=== PATIENT | female | born 1950 | race Caucasian/White ===

== ENCOUNTER 2018-05-26 16:47 | Observation (INO) | payer MEDICARE, SELFPAY ==
[2018-05-26] VITALS (35 sets, daily range): BP systolic 107–172; BP diastolic 60–94; PULSE 57–70; RESP 12–20; TEMP 36.7–37.1; O2SAT 90–98
--- NOTE | 2018-05-26 17:04 | ED.GENADUL_ITS ---
Discharge Plan Disposition Patient Disposition: [facility] INPATIENT Condition: Stable Discharge Details Chief Complaint: Chest Pain Clinical Impression: Unstable angina, Chest pain, Abnormal EKG Reason For Visit: UNSTABLE ANGINA, CHEST PAIN,ABNORMAL EKG Admit Date/Time: 05/26/18 20:03 Admit Provider: Junaid Dunbar Attending Provider: Junaid Dunbar Primary Care Provider: Judith Jerome ED Provider: More Hill Discharge Data Discharge Date/Time-TO BE ENTERED AT DEPARTURE: 05/26/18 19:55 Discharge Physician: More Hill Medical Decision Making MDM Narrative Medical decision making narrative: 67-year-old female with a history of hypertension who presents with intermittent chest pain and shortness of breath that occurs with exertion over the past 3 weeks. States her symptoms have occurred with walking up hills over the past 3 weeks, worse today causing her to stop and rest which resolved her symptoms. She called her PCP and was advised to come to the emergency department. She states her chest pain that currently 2/3 and associated with some shortness of breath and nausea. Her blood pressure 169/94. She took her regular blood pressure medication today. Remainder of vitals within normal limits. 1656 -- EKG notes rate of 70, sinus, left anterior fascicular block, and T-wave inversion in V2 through V5. No acute ST elevation or depression. There is no old EKG to compare. Patient states she has never had a previous EKG as far she can remember. States she has never had a stress test. Differential diagnosis includes angina, stable versus unstable, as symptoms did improve with rest but is still present at rest at this time. Although symptoms have been present for 3 weeks, they are worse today and with her concerning story, age and history, HEART score 6, pt would be appropriate for admission for observation and serial troponins and likely will need echocardiogram and stress test. Patient states she may be resistant to admission but would like to discuss again after workup complete. 1800 --labs and imaging reviewed. Troponin negative and no other acute findings. Chest x-ray negative. Patient had complete relief of pain with nitro ?1. BP 126/82. She is agreeable to admission. 1914 --d/w hospitalist - accepts pt for admission. Pt had return of pain and had relief again with 2nd nitro. HPI - General Adult General Mode of arrival: ambulatory . Date/Time Provider Initiated Documentation: 05/26/18 16:52 . Limitations to Documentation: no limitations . Information obtained by: patient . HPI Narrative: Patient is a 67-year-old female with a history of hypertension and high cholesterol who presents with intermittent chest pain and shortness of breath that occurs with walking for the past 3 weeks. Patient states that symptoms became worse today while walking to the point that she had to stop and rest which resolved her symptoms. Patient admits to feeling a soreness in her chest with radiation to her bilateral upper arms causing aching pain. She also admits to shortness of breath and nausea but denies any vomiting or dizziness. She states the pain in her chest is currently 2-3/10. She denies any previous history of stress test. Patient states she called her primary care doctor today regarding her symptoms and was advised to come to the emergency department for evaluation. She denies recent surgery, recent travel, leg pain or swelling. Related Data Home Medications Medication Instructions Recorded Confirmed aspirin [Ecotrin] 81 mg PO DAILY tab-cap 03/16/13 05/26/18 Allergies Allergy/AdvReac Type Severity Reaction Status Date / Time Sulfa (Sulfonamide Allergy Severe Unverified 05/26/18 17:03 Antibiotics) ciprofloxacin [From Cipro] Allergy Mild Unverified 05/26/18 17:03 Penicillins Allergy Mild Unverified 05/26/18 17:03 sulfamethoxazole Allergy Unverified 05/26/18 17:03 [From Septra] trimethoprim [From Septra] Allergy Unverified 05/26/18 17:03 hydrochlorothiazide AdvReac Intermediate TINGLING, Unverified 05/26/18 17:03 SWOLLEN LIPS General Stated Complaint: Chest Pain CARON: 3 Review of Systems Review of Systems All systems reviewed & are unremarkable except as noted in HPI and below Constitutional Denies chills, Denies excessive sweating, Denies fatigue, Denies fever(s), Denies weakness and Denies weight loss Eyes Patient Reports system reviewed and no additional complaints, except as docu and Denies blurry vision ENT Denies vertigo, Denies dizziness, Denies otalgia, Denies nasal congestion, Denies sore throat and Denies throat swelling Cardiovascular Reports chest pain, Denies syncope, Denies rapid heart rate, Denies claudication , Denies leg edema and Reports dyspnea Respiratory Denies cough, Denies pain on inspiration, Reports dyspnea and Denies wheezing Gastrointestinal Denies abdominal pain, Denies diarrhea, Reports nausea and Denies vomiting Genitourinary Denies hematuria, Denies dysuria and Denies flank pain Musculoskeletal Denies back pain and Denies joint swelling Integumentary/Breasts Denies lesions and Denies rash Neurologic Denies behavioral changes, Denies confusion, Denies vertigo, Denies dizziness, Denies syncope and Denies weakness Psychiatric Denies behavioral changes, Denies confusion and Denies depression Endocrine Denies excessive sweating and Denies fatigue Hematologic/Lymphatic Denies easy bruising and Denies lymphadenopathy Allergic/Immunologic Denies throat swelling and Denies wheezing PFSH Family History Mother Essential hypertension Neoplasm Father Diabetes Essential hypertension Heart disease Hyperlipidemia Neoplasm Renal failure Brother No problems noted. Grandfather Aneurysm Grandfather No problems noted. Grandmother No problems noted. Grandmother No problems noted. Brother No problems noted. Daughter No problems noted. Brother No problems noted. Medical History Chronic iritis Hyperlipidemia Hypertension Nephrolithiasis Osteoporosis Paresthesias Social History Smoking/Tobacco Use Status: Never alcohol intake: current alcohol intake frequency: 0-2 drinks per day Alcohol type: wine substance use type: does not use Surgical History Biopsy of breast (~1988) Exam Const General: cooperative and healthy appearing Orientation: alert and awake [facility] Head: normal to inspection Ears: hearing grossly normal bilaterally, external ears normal and TM's normal bilaterally General nose exam: external nose normal Face and sinus: normal facial exam Eyes General: appearance normal, both eyes and all related structures Eyelids: eyelids normal Pupils: PERRL EOM: EOM intact bilaterally Neck Neck: normal visual inspection Chest Chest: normal inspection of the chest Resp Effort & Inspection: normal respiratory effort and able to speak in complete sentences Auscultation: clear to auscultation bilaterally Cardio Rate: regular rate Rhythm: regular rhythm GI Inspection: normal to inspection Palpation: soft, not firm, no guarding, no hepatosplenomegaly, no masses and nontender Auscultation: normal bowel sounds Back/Spine/Pelvis Back: no CVA tenderness Skin General skin exam: no rashes or lesions noted Neuro General: alert and awake Cognition: normal cognition Speech: speech normal Gait: normal gait Motor: muscle tone normal throughout Sensory Exam: no sensory deficits noted Extrem General: normal to inspection, full ROM, normal capillary refill, no calf tenderness bilaterally and no edema Psych Appearance: grossly normal Mental Status: mental status grossly normal Speech and Movement: speech and movement normal Affect: normal affect Thought Process: normal Course Vital Signs Temperature 98.8 F 05/26/18 16:58 Pulse 68 05/26/18 16:58 Respiratory Rate 16 05/26/18 16:58 Blood Pressure 169/94 H 05/26/18 16:58 Pulse Oximetry 98 05/26/18 16:58 Temperature 98.8 F 05/26/18 16:58 Pulse 68 05/26/18 16:58 Respiratory Rate 16 05/26/18 16:58 Blood Pressure 169/94 H 05/26/18 16:58 Pulse Oximetry 98 05/26/18 16:58
[2018-05-26 17:11] LABS: Abs Immature Grans 0.03 k/cumm (0.0-0.09); Absolute Basophil Count 0.04 k/cumm (0.0-0.2); Absolute Eosinophil Count 0.19 k/cumm (0.0-0.7); Absolute Lymphocyte Count 2.88 k/cumm (1.2-3.4); Absolute Monocyte Count 0.57 k/cumm (0.11-0.7); Absolute Neutrophil Count 3.43 k/cumm (1.2-6.7); Basophils % 0.6; Eosinophils % 2.7; HCT 42.4 % (36.0-46.0); HGB 14.6 g/dL (12.0-15.5); Immature Grans % 0.4; Lymphocytes % 40.3; Mean Corp. HGB Concentration 34.4 g/dL (32.0-36.0); Mean Corpuscular Hemoglobin 33.6 pg (27.0-33.0); Mean Corpuscular Volume 97.5 fL (80-95); Mean Platelet Volume 10.8 fL (8.0-11.0); Platelet Count 213 x1000/uL (130-400); RBC 4.35 m/cumm (4.00-5.20); RBC Distribution Width 13.3 % (11.7-14.6); White Blood Cell Count 7.14 k/cumm (4.4-10.8)
[2018-05-26 17:30] LABS: ALT 26 U/L (12-78); AST 18 U/L (15-37); Albumin 3.8 g/dL (3.4-5.0); Alkaline Phosphatase 94 U/L (46-116); Anion Gap 7.1 mmol/L (3-11); BUN 20 mg/dL (7-18); Bilirubin, Total 0.2 mg/dL (0.2-1.0); CO2 25.9 mmol/L (21.0-32.0); CREATININE 0.77 mg/dL (0.55-1.02); Calcium 8.7 mg/dL (8.5-10.1); Chloride 104 mmol/L (98-107); Glucose 114 mg/dL (70-100); Magnesium 2.2 mg/dL (1.8-2.4); Sodium 137 mmol/L (136-145); Total Protein 7.5 g/dL (6.4-8.2)
[2018-05-26 17:31] LABS: Troponin I < 0.02 ng/mL (0.00-0.06)
--- NOTE | 2018-05-26 17:35 | DI.RAD_ITS ---
SYMPTOM/DIAGNOSIS: CHEST PAIN PA AND LATERAL CHEST: Comparison is made with 01/16/16. The heart size is normal. The aorta is mildly tortuous. The lungs are well inflated and clear. No thoracic compression fractures are seen. There is no evidence of pneumothorax. IMPRESSION: Negative chest xray.
[2018-05-26] MEDS: Aspirin 325 MG TAB PO (17:47)
--- NOTE | 2018-05-26 17:53 | DI.VRAD_ITS ---
EXAM: XR Chest, 2 Views CLINICAL HISTORY: 67 years old, female; Pain; Chest pain; Type not specified; Patient HX: Chest pain, R/O acute disease. TECHNIQUE: Frontal and lateral views of the chest. COMPARISON: CR - CHEST 2 VIEWS PA,LAT 01/16/2016 2:53 PM FINDINGS: Lungs: Unremarkable. No consolidation. Pleural space: Unremarkable. No pneumothorax. Heart: Unremarkable. No cardiomegaly. Mediastinum: Unremarkable. Bones/joints: Unremarkable. IMPRESSION: No acute cardiopulmonary pathology. Dictated and Authenticated by: Wolfgang Martinez MD. Ordering:BEBO OSORIO MD
[2018-05-26 21:38] LABS: Troponin I 0.02 ng/mL (0.00-0.06)
[2018-05-26] MEDS: Enoxaparin 40 MG/0.4 ML SYR SC (22:40)
--- NOTE | 2018-05-26 22:43 | W.PM.HP.N ---
Date of service: 05/26/18 Time of Service: 22:45 Assessment and Plan (1) Exertional angina: Start date: 05/26/18 Current visit: Yes Status: Acute Admit to medical/surgical floor on telemetry monitoring overnight while monitoring for further anginal symptoms. Schedule stress treadmill MPI study and echocardiogram for tomorrow morning along with cardiology consultation. Continue her atenolol and aspirin although her atenolol will probably need to be held for the stress test in the morning. Continue her lisinopril for her essential hypertension. Continue to monitor her troponin levels overnight. If further anginal symptoms, then check serial EKGs and further troponin levels and treat accordingly with systemic heparin and systemic nitroglycerin. I would have a low threshold for transferring her to the intensive care unit if she has further chest pain or if she show signs of an acute myocardial infarction I would transfer her to a tertiary care facility where she can go for emergent cardiac catheterization. I will check a lipid profile in the morning and begin statin therapy tonight. (2) Essential hypertension: Current visit: Yes Status: Acute Continue lisinopril and atenolol. Monitor her blood pressure modify her medications as needed. Check echocardiogram in the morning to evaluate LV function and look for signs of hypertensive heart disease. 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 About 3 weeks ago she noticed exertional dyspnea and chest tightness while running up chickens at home. This was associated with heaviness in her arms and a sensation that her heart was beating unusually hard. Symptoms quickly resolved with rest. Then today while at school she was taking her students for a walk up a hill when she developed substernal chest pressure and aching in her arms along with exertional dyspnea. She called her primary care provider's office at [facility] and was told to present to the emergency department. Patient tried to argue that she could go another day after school but was told that she should go immediately. She was evaluated in the emergency room by Dr. Hill who performed routine labs and chest x-ray and EKG. Her EKG demonstrated normal sinus rhythm at a rate of 70 bpm with a left anterior fascicular block and diffuse precordial T-wave inversion with no ST changes. Her first 2 troponins have been negative. Her chest pain was relieved with with 2 sublingual nitroglycerin tablets. Prior to treatment with the nitroglycerin her blood pressure was elevated at 167/94 and as high as 172/87 before declining to 128/81. Patient's coronary risk factors include a strong family history in her father who started having heart disease in his early 60s and eventually from chronic kidney disease as result of long-standing hypertension in his 70s. Patient has 2 living brothers who are healthy. Patient does not smoke and has never smoked. She denies any diabetes mellitus. Although it is listed on her chart that she has hyperlipidemia she is not aware of this and does not take any cholesterol-lowering medications. 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 Review of Systems Constitutional Reports as per HPI Eyes Patient Reports photophobia Comments: Decreased vision in her left eye secondary to chronic uveitis ENT Reports system reviewed and no additional complaints, except as docu Cardiovascular Reports as per HPI Respiratory Reports as per HPI Gastrointestinal Reports system reviewed and no additional complaints, except as docu Genitourinary Reports system reviewed and no additional complaints, except as docu Musculoskeletal Reports system reviewed and no additional complaints, except as docu Neurologic Reports system reviewed and no additional complaints, except as docu Psychiatric Reports system reviewed and no additional complaints, except as docu Endocrine Reports system reviewed and no additional complaints, except as docu Hematologic/Lymphatic Reports system reviewed and no additional complaints, except as docu Allergic/Immunologic Reports system reviewed and no additional complaints, except as docu PFSH Family History Mother Essential hypertension Neoplasm Father Diabetes Essential hypertension Heart disease Hyperlipidemia Neoplasm Renal failure Brother No problems noted. Grandfather Aneurysm Grandfather No problems noted. Grandmother No problems noted. Grandmother No problems noted. Brother No problems noted. Daughter No problems noted. Brother No problems noted. Medical History Chronic iritis Hyperlipidemia Hypertension Nephrolithiasis Osteoporosis Paresthesias Social History Smoking/Tobacco Use Status: Never alcohol intake: current alcohol intake frequency: 0-2 drinks per day Alcohol type: wine substance use type: does not use Surgical History Biopsy of breast (~1988) Meds Home Medications Medication Instructions Recorded Confirmed Type aspirin [Ecotrin] 81 mg PO DAILY tab-cap 03/16/13 05/26/18 History fluticasone 50 mcg NS BID #1 bottle 02/18/17 05/26/18 Clinic acyclovir 400 mg PO BID #180 tab-cap 01/13/18 05/26/18 Clinic atenolol 50 mg PO DAILY #90 tab-cap 03/22/18 05/26/18 Clinic lisinopril 5 mg PO DAILY #90 tab-cap 03/22/18 05/26/18 Clinic Allergies Allergy/AdvReac Type Severity Reaction Status Date / Time Sulfa (Sulfonamide Allergy Severe Unverified 05/26/18 17:03 Antibiotics) ciprofloxacin [From Cipro] Allergy Mild Unverified 05/26/18 17:03 Penicillins Allergy Mild Unverified 05/26/18 17:03 sulfamethoxazole Allergy Unverified 05/26/18 17:03 [From Septra] trimethoprim [From Septra] Allergy Unverified 05/26/18 17:03 hydrochlorothiazide AdvReac Intermediate TINGLING, Unverified 05/26/18 17:03 SWOLLEN LIPS Exam Const General: cooperative, healthy appearing, comfortable, no acute distress, well developed and well groomed Nutritional Appearance: average body habitus and well nourished Orientation: alert, awake and oriented x3 HENMT Head: normal to inspection Ears: hearing grossly normal bilaterally Eyes Cornea: corneas abnormal Pupils: anisocoria, dilated on the left, fixed on the left and not reactive on the left EOM: EOM intact bilaterally Neck Neck: normal visual inspection, full ROM, no lymphadenopathy and supple Carotids: normal carotid upstroke Lymphatic: no lymphadenopathy noted Chest Chest: normal inspection of the chest Resp Effort & Inspection: normal respiratory effort and able to speak in complete sentences Auscultation: clear to auscultation bilaterally Cardio Jugular venous pressure: no JVD Palpation: normal PMI Rate: regular rate Rhythm: regular rhythm Heart Sounds: S1 normal and S2 normal Pulses: brachial pulses present, radial pulses present, femoral pulses present, popliteal pulses present, posterior tibial pulses present, dorsalis pedis pulses present and normal peripheral pulses GI Inspection: normal to inspection Palpation: soft and no hepatosplenomegaly Percussion: normal to percussion Auscultation: normal bowel sounds Neuro General: alert, awake, oriented x3, moves all extremities and normal light touch, pain and propioception Cranial Nerves: EOM intact bilaterally, no nystagmus, facial strength normal, tongue midline, hearing normal, able to rotate head bilaterally and able to elevate shoulders bilaterally Cognition: normal cognition Speech: speech normal Motor: muscle tone normal throughout and strength 5/5 throughout Sensory Exam: no sensory deficits noted and normal double simultaneous stimulation Extrem General: normal to inspection, full ROM, normal capillary refill, no joint enlargement, no clubbing, cyanosis or edema, no pedal edema and no calf tenderness Psych Appearance: grossly normal Mental Status: mental status grossly normal Speech and Movement: speech and movement normal Mood: congruent mood Affect: normal affect Attitude: cooperative Thought Process: normal Thought Content: normal Insight: insight good Judgment: judgment good Results Labs : 05/26/18 17:00 05/26/18 17:00 Abnormal lab results 05/26/18 05/26/18 Range/Units 17:00 17:00 MCV 97.5 H (80-95) fL MCH 33.6 H (27.0-33.0) pg BUN 20 H (7-18) mg/dL Glucose 114 H (70-100) mg/dL Diabetes panel 05/26/18 Range/Units 17:00 Sodium 137 (136-145) mmol/L Potassium 4.0 (3.5-5.1) mmol/L Chloride 104 (98-107) mmol/L Carbon Dioxide 25.9 (21.0-32.0) mmol/L BUN 20 H (7-18) mg/dL Creatinine 0.77 (0.55-1.02) mg/dL Glucose 114 H (70-100) mg/dL Calcium 8.7 (8.5-10.1) mg/dL AST 18 (15-37) U/L ALT 26 (12-78) U/L Alkaline Phosphatase 94 (46-116) U/L Total Protein 7.5 (6.4-8.2) g/dL Albumin 3.8 (3.4-5.0) g/dL Calcium panel 05/26/18 Range/Units 17:00 Calcium 8.7 (8.5-10.1) mg/dL Albumin 3.8 (3.4-5.0) g/dL Pituitary panel 05/26/18 Range/Units 17:00 Sodium 137 (136-145) mmol/L Potassium 4.0 (3.5-5.1) mmol/L Chloride 104 (98-107) mmol/L Carbon Dioxide 25.9 (21.0-32.0) mmol/L BUN 20 H (7-18) mg/dL Creatinine 0.77 (0.55-1.02) mg/dL Glucose 114 H (70-100) mg/dL Calcium 8.7 (8.5-10.1) mg/dL Adrenal panel 05/26/18 Range/Units 17:00 Sodium 137 (136-145) mmol/L Potassium 4.0 (3.5-5.1) mmol/L Chloride 104 (98-107) mmol/L Carbon Dioxide 25.9 (21.0-32.0) mmol/L BUN 20 H (7-18) mg/dL Creatinine 0.77 (0.55-1.02) mg/dL Glucose 114 H (70-100) mg/dL Calcium 8.7 (8.5-10.1) mg/dL Total Bilirubin 0.2 (0.2-1.0) mg/dL AST 18 (15-37) U/L ALT 26 (12-78) U/L Alkaline Phosphatase 94 (46-116) U/L Total Protein 7.5 (6.4-8.2) g/dL Albumin 3.8 (3.4-5.0) g/dL Laboratory Tests 05/26/18 05/26/18 05/26/18 17:00 17:00 21:15 WBC 7.14 RBC 4.35 Hgb 14.6 Hct 42.4 MCV 97.5 H MCH 33.6 H MCHC 34.4 RDW 13.3 Plt Count 213 MPV 10.8 Immature Gran % 0.4 Neutrophils % 48.0 Lymphocytes % 40.3 Monocytes % 8.0 Eosinophils % 2.7 Basophils % 0.6 Absolute Neutrophils 3.43 Absolute Lymphocytes 2.88 Absolute Monocytes 0.57 Absolute Eosinophils 0.19 Absolute Basophils 0.04 Sodium 137 Potassium 4.0 Chloride 104 Carbon Dioxide 25.9 Anion Gap 7.1 BUN 20 H Creatinine 0.77 Estimated GFR/1.73 m2 >= 60.00 Glucose 114 H Calcium 8.7 Magnesium 2.2 Total Bilirubin 0.2 AST 18 ALT 26 Alkaline Phosphatase 94 Troponin I < 0.02 0.02 Total Protein 7.5 Albumin 3.8
[2018-05-26] MEDS: Atorvastatin 40 MG TAB PO (23:52)
[2018-05-27] VITALS (8 sets, daily range): BP systolic 120–145; BP diastolic 76–84; PULSE 56–67; RESP 16–21; TEMP 36.2–36.9; O2SAT 93–96
[2018-05-27 00:52] LABS: Troponin I < 0.02 ng/mL (0.00-0.06)
[2018-05-27 07:37] LABS: Cholesterol 186 mg/dL (50-200); HDL Cholesterol 33 mg/dL (40-60); LDL CHOLESTEROL 127 mg/dL (<100); Triglyceride 236 mg/dL (30-150)
[2018-05-27 07:41] LABS: Hemoglobin A1C 5.4 % (4.5-6.2)
--- NOTE | 2018-05-27 08:00 | MERGE_ITS ---
*[facility]* *[facility]* [address] [place] [address] Date of study: 05/27/2018 Transthoracic Echocardiography M-mode, complete 2D, complete spectral Doppler, and color Doppler *STUDY CONCLUSIONS* Summary: 1. Left ventricle: The cavity size was normal. Wall thickness was normal. Systolic function was normal. The estimated ejection fraction was 55-60%. Wall motion was normal; there were no regional wall motion abnormalities. 2. Right ventricle: The cavity size was normal. Systolic function was normal. 3. Left atrium: The atrium was mildly dilated. 4. Mitral valve: Mildly calcified annulus. Mildly thickened leaflets. There was mild regurgitation. 5. Inferior vena cava: The vessel was normal in size. The respirophasic diameter changes were in the normal range (greater than or equal to 50%), consistent with normal central venous pressure. *PATIENT PRESENTATION* Height: 160cm ((63in) ) S/D Pressure: 132 / 76 Weight: () BSA: Test start time: 07:30 AM. Test stop time: 08:30 AM. PERFORMING Unknown PERFORMING [facility] ORDERING Jairo Dunbar REFERRING Jairo Dunbar AUXILIARY POWERPLANT OPERATOR Dilma Andrade *PROCEDURE DATA* Procedure information: This study was interpreted by [facility]. Pertinent images and digital data are archived for permanent storage and are available for subsequent review. No prior study was available for comparison. Transthoracic echocardiography. M-mode, complete 2D, complete spectral Doppler, and color Doppler. A Transthoracic Echocardiogram was performed. Scanning was performed from the parasternal, apical, subcostal, and suprasternal notch acoustic windows. Images were obtained using an [place] cardiac ultrasound machine. Image quality was adequate. Study completion: The patient tolerated the procedure well. There were no complications. History: PMH: Chest pain. *CARDIAC ANATOMY* Left ventricle: The cavity size was normal. Wall thickness was normal. Systolic function was normal. The estimated ejection fraction was 55-60%. Wall motion was normal; there were no regional wall motion abnormalities. Findings consistent with diastolic dysfunction. There was no evidence of elevated ventricular filling pressure by Doppler parameters. Aortic valve: Trileaflet; mildly thickened leaflets. Mobility was not restricted. Doppler: Transvalvular velocity was within the normal range. There was no stenosis. There was no significant regurgitation. VTI ratio of LVOT to aortic valve: 0.88. Valve area (VTI): 2.3cm^2. Peak velocity ratio of LVOT to aortic valve: 0.95. Valve area (Vmax): 2.6cm^2. Mean velocity ratio of LVOT to aortic valve: 0.77. Valve area (Vmean): 2cm^2. Mean gradient (S): 3.3mm Hg. Peak gradient (S): 5.9mm Hg. Aorta: Aortic root: The aortic root was normal in size. Ascending aorta: The ascending aorta was normal in size. Mitral valve: Mildly calcified annulus. Mildly thickened leaflets. Mobility was not restricted. Doppler: Transvalvular velocity was within the normal range. There was no evidence for stenosis. There was mild regurgitation. Valve area by pressure half-time: 3cm^2. Peak gradient (D): 2.6mm Hg. Left atrium: The atrium was mildly dilated. Right ventricle: The cavity size was normal. Systolic function was normal. Pulmonic valve: Poorly visualized. Doppler: Transvalvular velocity was within the normal range. There was no evidence for stenosis. There was no significant regurgitation. Tricuspid valve: Structurally normal valve. Doppler: Transvalvular velocity was within the normal range. There was no evidence for stenosis. There was trivial regurgitation. Pulmonary artery: Poorly visualized. Systolic pressure could not be accurately estimated. Right atrium: The atrium was normal in size. Pericardium: There was no pericardial effusion. Systemic veins: Inferior vena cava: The vessel was normal in size. The respirophasic diameter changes were in the normal range (greater than or equal to 50%), consistent with normal central venous pressure. Measurements Left ventricle Value Reference LV ID, ED, PLAX 4.2 cm 3.5 - 6.0 LV ID, ES, PLAX 2.5 cm 2.1 - 4.0 LV PW thickness, ED, PLAX 0.9 cm LV end-diastolic volume, 1-p A2C 82 ml LV ejection fraction, 1-p A2C 59 % LV end-diastolic volume, 1-p A4C 70 ml LV ejection fraction, 1-p A4C 55 % LV e', lateral 0.052 m/sec LV E/e', lateral 16 LV e', medial 0.06 m/sec LV E/e', medial 13 LV e', average 0.056 m/sec LV E/e', average 14 Ventricular septum Value Reference IVS thickness, ED, PLAX 0.9 cm LVOT Value Reference LVOT ID, A-P 1.8 cm LVOT area 2.7 cm^2 LVOT peak velocity, S 1.16 m/sec LVOT mean velocity, S 0.66 m/sec LVOT VTI, S 24.0 cm LVOT peak gradient, S 5.4 mm Hg LVOT mean gradient, S 2.2 mm Hg Stroke volume (SV), LVOT DP 64 ml Aortic valve Value Reference Aortic valve peak velocity, S 1.2 m/sec Aortic valve mean velocity, S 0.87 m/sec Aortic valve VTI, S 27.4 cm Aortic mean gradient, S 3.3 mm Hg Aortic peak gradient, S 5.9 mm Hg VTI ratio, LVOT/AV 0.88 Aortic valve area, VTI 2.3 cm^2 Velocity ratio, peak, LVOT/AV 0.95 Aortic valve area, peak velocity 2.6 cm^2 Velocity ratio, mean, LVOT/AV 0.77 Aortic valve area, mean velocity 2 cm^2 Aorta Value Reference Aortic root ID, ED 3.1 cm Ascending aorta ID, A-P, S 3.6 cm Left atrium Value Reference LA ID, A-P, ES 3.3 cm LA area, ES, A4C 15.9 cm^2 8.8 - 23.4 LA area, ES, A2C 21 cm^2 LA volume, ES, 2-p 53 ml LA/aortic root ratio 1.08 Mitral valve Value Reference Mitral E-wave peak velocity 0.81 m/sec Mitral A-wave peak velocity 0.97 m/sec Mitral deceleration time (H) 254 ms 150 - 230 Mitral pressure half-time 74 ms Mitral peak gradient, D 2.6 mm Hg Mitral E/A ratio, peak 0.84 Mitral valve area, PHT, DP 3 cm^2 Right atrium Value Reference RA area, ES, A4C 10.1 cm^2 8.3 - 19.5 Legend: (L) and (H) nalini values outside specified reference range. I have personally reviewed the images and have reviewed and edited the reported findings. Electronically signed by Ronald Mclaughlin 05/27/2018 11:06
--- NOTE | 2018-05-27 08:00 | MERGEMPI_ITS ---
*[facility]* *[facility]* [address] [place] [address] Myocardial Perfusion Imaging - SPECT Guerrero protocol Date of study: 05/27/2018 *PATIENT PRESENTATION* Height: 162.6cm (64in) Blood Pressure: Weight: 68.2kg (150lb) BSA: 1.77m^2 Ordering physician: Jairo Dunbar Impressions: Abnormal study after maximal exercise. Summary: 1. Myocardial perfusion imaging: There is a moderate - large sized, severely intense, fully reversible defect involving the mid anterior and apical anterior and apical wall(s). This suggests moderate - large ischemia in the distribution of the left anterior descending coronary artery. 2. The calculated left ventricular ejection fraction after stress: 61%. LV global systolic function is normal. There is hypokinesis involving the apical wall(s) of the left ventricle. Recommendations: 1. Transfer for left heart cath. 2. Results discussed with hospitalist business continuity specialist. Indication: I20.9. History: REASON FOR TESTIN WEEK HX OF EXERTIONAL DYPNEA WITH CHEST PAIN. MID CHEST PRESSURE WITH BILAT ARM HEAVINESS WITH ACHING, WAVE-LIKE PAIN. EXTREMELY SHORT OF BREATH WITH NAUSEA PMH: CHRONIC IRITIS, HYPERLIPIDEMIA, HYPERTENSION, NEPHROLITHIASIS, OSTEOPOROSIS, PARATHESIAS FAMILY HX: MOTHER- HYPERTENSION. FATHER- HYPERTENSION, CAD, HYPERLIPIDEMIA/ SMOKING: NEVER. EXCERCISE: WALKS DAILY AT WORK, HAD STARTED, IN FEBRUARY, WALKING DAILY UNTIL THE CHEST PAIN STARTED. Risk factors: Family history of coronary artery disease. Hypertension. Dyslipidemia. Cholesterol: 186mg/dl. HDL: 33mg/dl. LDL: 127mg/dl. Triglycerides: 236mg/dl. ALLERGIES: PENICILLIN, SEPTRA, CIPRO, HCTZ. MEDICATIONS: ACYCLOVIR 400 MG BID, ASPIRIN 81 MG DAILY, ATENOLOL 50 MG DAILY, FLUTICASONE 50 MCG BID, LISINOPRIL 5 MG DAILY. Imaging Technique: Protocol: Guerrero protocol. Acquisition: Gated SPECT; 1 day - rest/stress. The patient was imaged in the supine position. Attenuation correction used. Isotope administration: - Rest. Tc[99m]-sestamibi. Dose: 9.5mCi. Injection time: 10:45 AM. Injection to stress time: 00:45. - Stress. Tc[99m]-sestamibi. Dose: 31mCi. Injection time: 01:00 PM. 1-2 min before end of exercise Baseline ECG: LAST EKG 05/26/18- SINUS RHYTHM, HR 70. LAFB, NEGATIVE T WAVES, POSSIBLE ANTERIOR ISCHEMIA. TODAY'S EKG- SINUS RHYTHM, HR 61. Stress protocol: + +---+ +---+ + !Stage !HR !BP (mmHg) !Sat!Comments ! + +---+ +---+ + !Baseline supine !61 !174/82 (113) !---! ! + +---+ +---+ + !Baseline standing !65 !162/72 (102) !---! ! + +---+ +---+ + !Stage I; 1.7mph, !148!198/120 (146)!99%! ! !10degrees; 3 min ! ! ! ! ! + +---+ +---+ + !Recovery; 1 min !150!208/108 (141)!---! ! + +---+ +---+ + !Recovery; 3 min !110!210/114 (146)!---! ! + +---+ +---+ + !Recovery; 6 min !95 !164/84 (111) !---!NITROGLYCERIN 0.4 MG SL.! + +---+ +---+ + !Recovery; 9 min !90 !150/70 (97) !---! ! + +---+ +---+ + * Stress results: The rate-pressure product for the peak heart rate and blood pressure was 11038et Hg/min. Stress ECG: EXCERCISE TESTING ENDED IN 3 MINS, 0 SECS DUE TO DYSPNEA, CHEST PAIN, FATIGUE AND DIZZINESS. MAX HR WAS 152, 100% OF TARGET. HYPERTENSIVE BLOOD PRESSURE REPSONSE. METS: 4.64 ECTOPY: NONE NOTED. ANGINA: 5/10 CHEST PAIN AT 2:55 OF TESTING, WITH BILAT ARM PAIN RADIATING TO LEFT JAW. THERE MAY HAVE BEEN A TRANSIENT DROOP TO LEFT SIDE OF MOUTH, NOTED BY KRISTY DURÁN, NOT SEEN BY THIS MERCHANDISE FLOW MANAGER. PT WAS DIZZY AND MODERATELY NAUSEATED. DR. MCLAUGHLIN WAS INFORMED OF THESES FINDINGS. PT MEDICATED WITH NTG 0.4 MG SL WITH COMPLETE RELIEF OF SYMPTOMS. ISCHEMIA: NO ISCHEMIC CHANGES NOTED. FUNCTIONAL CAPACITY: MILDLY DIMINSHED CAPACITY. Myocardial perfusion: Imaging information: gated. Left ventricular size is normal. There is a moderate - large sized, severely intense, fully reversible defect involving the mid anterior and apical anterior and apical wall(s). This suggests moderate - large ischemia in the distribution of the left anterior descending coronary artery. Ventricular Function (Wall Motion): The calculated left ventricular ejection fraction after stress: 61%. LV global systolic function is normal. There is hypokinesis involving the apical wall(s) of the left ventricle. Study data: Ronald Mclaughlin MD supervised and was readily available during the procedure. This study was interpreted by [facility]. Study status: Routine. Consent: The risks, benefits, and alternatives to the procedure were explained to the patient and informed consent was obtained. Procedure: Initial setup. A baseline ECG was recorded. Surface ECG leads and manual cuff blood pressure measurements were monitored. Heart sounds: Normal. Lung sounds: Normal. Treadmill exercise testing was performed using the Guerrero protocol. Study completion: All catheters inserted during the procedure were removed. The patient tolerated the procedure well and was discharged from the lab. Discharge: The patient left the laboratory in stable condition. Birthdate: Patient birthdate: 1950. Sex: Gender: female. Study date: Study date: 05/27/2018. Study time: 08:00 AM. Signature Documentation: - The imaging portion of this study was interpreted by Nuclear Appeals Court Associate Justice Ronald Mclaughlin MD. - The imaging portion of this study was interpreted by Nuclear Radiologist Valencia Rodriguez MD. - The Stress ECG portion of this study was interpreted by Rnoald Mclaughlin MD. Electronically signed by Ronald Mclaughlin 05/27/2018 14:22
[2018-05-27] MEDS: Omeprazole 20 MG CAPCR PO ×2 (08:43→19:43)
[2018-05-27] MEDS: Acyclovir 400 MG TAB PO ×2 (08:43→19:43)
[2018-05-27 10:02] LABS: Troponin I < 0.02 ng/mL (0.00-0.06)
--- NOTE | 2018-05-27 11:25 | PHARADMIT ---
Admission Pharmacy Clinical Review Unstable Angina, Chest Pain, Abnormal EKG stres test, ECHO today. Code Status Full Code Current Weight Wgt- 68 kg Renally Cleared and Narrow Therapeutic Index Meds CrCL~ 54.9 mL/min Meds- OK QTc Value / Action Taken program na BP Control, Fever BP- 145/76 Tmax-36.7C Electrolytes reviewed Na- 137 K+4.0 Mag-2.2 DVT Prophylaxis Lovenox 40mg Opiate Usage / Scheduled Bowel Regimen Ordered No Yes Plt/SCr for Heparin / Enoxaparin Plts- 213 SCr-0.77 INR for Warfarin na H/H stable, WBC/Bands H&H- 14.6/42.4 WBC- 7.14 Antibiotic appropriateness none Cultures and Sensitivities none Surgical ABX d/c within 24 hr na DM control / Insulin Dosing BG- 114 HgA1c- 5.4 Heart Failure (Check EF%) (KELI's, B-Block, Diuretics) Atenolol, Lisinopril, NTG IV to PO Switch NA Home Meds Reviewed Yes Home Meds Not Ordered Flonase Comments
--- NOTE | 2018-05-27 12:32 | PDOC.CMIN ---
- If Service Date Differs Date of service: 05/27/18 Time of Service: 12:32 Care Management Initial Assess REASON FOR HOSPITALIZATION:: Unstable angina, chest pain, abnormal EKG. PAST MEDICAL HISTORY/PAST SURGICAL HISTORY:: Angina, hypertension, iritis, hyperlipidemia, nephrolithiasis, osteoperosis, pareshtesias. Surgical hx: breast biopsy (1988). PREVIOUS FUNCTIONAL STATUS/SOCIAL/FAMILY SUPPORTS:: Casi resides in her own home with her , Honorio. Their adult daughter lives next door. 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 Pt reports that this is her first time being hospitalized. CURRENT FUNCTIONAL STATUS:: Casi is lying in bed with , Honorio, at bedside, when CM visits this morning. She is engaged in conversation, is talkative and makes good eye contact. Casi reports that she is having some chest tightness but otherwise her symptoms are greatly improved. She is eager to go home and denies any reservations or concerns about doing so. Casi reports that she is very active and has had chest tightness, pain and arm pain following ambulation in the past. ADVANCE DIRECTIVES:: None on file at [facility]. Has patient been provided with information about the portal?: Yes Did the patient sign up for the portal?: No CODE STATUS:: Full Code INSURANCE COVERAGE / FINANCIAL ISSUES:: Blue Cross Blue Shield, Medicare. CURRENT HOME/COMMUNITY SERVICES/EQUIPMENT:: No current home or community services. PRIMARY CARE PHYSICIAN:: Judith Jerome. POTENTIAL DISCHARGE NEEDS:: Follow up appointment with PCP. PATIENT/FAMILY EDUCATION NEEDS:: Discharge education, any limitations and follow up plan of care. Ask Me Three discussion. ANTICIPATED BARRIERS TO DISCHARGE:: No anticipated barriers to discharge. TRANSPORTATION:: Casi will transport via private vehicle with her , Honorio. PLAN:: Casi will discharge when medically ready per MD. Anticipate pt will discharge with no services and follow up with PCP. CM will continue to provide support to patient, family and care team regarding discharge planning and disposition.
--- NOTE | 2018-05-27 12:44 | INITIAL_ITS ---
- If Service Date Differs Date of service: 05/27/18 Time of Service: 12:32 Care Management Initial Assess REASON FOR HOSPITALIZATION:: Unstable angina, chest pain, abnormal EKG. PAST MEDICAL HISTORY/PAST SURGICAL HISTORY:: Angina, hypertension, iritis, hyperlipidemia, nephrolithiasis, osteoperosis, pareshtesias. Surgical hx: breast biopsy (1988). PREVIOUS FUNCTIONAL STATUS/SOCIAL/FAMILY SUPPORTS:: Casi resides in her own home with her , Honorio. Their adult daughter lives next door. 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 Pt reports that this is her first time being hospitalized. CURRENT FUNCTIONAL STATUS:: Casi is lying in bed with , Honorio, at bedside , when CM visits this morning. She is engaged in conversation, is talkative and makes good eye contact. Casi reports that she is having some chest tightness but otherwise her symptoms are greatly improved. She is eager to go home and denies any reservations or concerns about doing so. Casi reports that she is very active and has had chest tightness, pain and arm pain following ambulation in the past. ADVANCE DIRECTIVES:: None on file at [facility]. Has patient been provided with information about the portal?: Yes Did the patient sign up for the portal?: No CODE STATUS:: Full Code INSURANCE COVERAGE / FINANCIAL ISSUES:: Blue Cross Blue Shield, Medicare. CURRENT HOME/COMMUNITY SERVICES/EQUIPMENT:: No current home or community services. PRIMARY CARE PHYSICIAN:: Judith Jerome. POTENTIAL DISCHARGE NEEDS:: Follow up appointment with PCP. PATIENT/FAMILY EDUCATION NEEDS:: Discharge education, any limitations and follow up plan of care. Ask Me Three discussion. ANTICIPATED BARRIERS TO DISCHARGE:: No anticipated barriers to discharge. TRANSPORTATION:: Casi will transport via private vehicle with her , Honorio. PLAN:: Casi will discharge when medically ready per MD. Anticipate pt will discharge with no services and follow up with PCP. CM will continue to provide support to patient, family and care team regarding discharge planning and disposition.
--- NOTE | 2018-05-27 16:38 | W.PM.PROGNOT ---
Date of service: 05/27/18 Time of Service: 16:39 Assessment and Plan (1) Exertional angina: Current visit: Yes Status: Acute Evidence of progressively worsening stable angina by history, patient had an abnormal nuclear exercise stress today. Apparent Large sized, severely intense, fully reversible defect involving the mid anterior, apical anterior, and apical arana suggestive of moderate to large ischemia in the distribution of the LAD. LVEF intact. Continue home regimen of ASA, BB and KELI-I, and start high potency statin therapy. Patient will be plavix loaded, and initiated on daily dosing starting tomorrow. Accepted in transfer by [facility] for a diagnostic and likely therapeutic LH. Currently remains asymptomatic. Subjective Interval history since last seen: 67-year-old woman with a prior history of HTN, admitted from [facility] ED with complaints of exertional Chest Pain and Dyspnea. Mrs. Clifford works locally at the [employer] in [facility]. She has noticed worsening exertional dyspnea and chest tightness over the last month. This is associated with heaviness in her arms and a sensation that her heart was beating unusually hard. Symptoms quickly resolved with rest. 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 Evaluation in the emergency room showed slight T-wave and st segment depressions in the precordial leads. Her troponin was negative. Of note, the patient's father was diagnosed with CAD in his 60's. Given her story the patient was referred for admission for further evaluation. Stress testing today confirmed suspicions of likely underlying CAD, with a large sized, severely intense but reversible defect involving the LAD. LVEF was normal. The patient is currently symptom free and has had negative troponins. No other events reported. Exam Const General: cooperative, comfortable and no acute distress Neck Neck: supple Resp Effort & Inspection: normal respiratory effort and not labored Auscultation: clear to auscultation bilaterally, no rales and wheezes Cardio Rate: regular rate Heart Sounds: S1 normal and S2 normal GI Palpation: soft, not firm, no guarding, not rigid and nontender Psych Attitude: cooperative Thought Content: normal Judgment: judgment good Objective Objective Clinical Data: Abnormal lab results 05/26/18 05/26/18 05/27/18 Range/Units 17:00 17:00 06:50 MCV 97.5 H (80-95) fL MCH 33.6 H (27.0-33.0) pg BUN 20 H (7-18) mg/dL Glucose 114 H (70-100) mg/dL Triglycerides 236 H (30-150) mg/dL LDL Cholesterol Direct 127 H (<100) mg/dL HDL Cholesterol 33 L (40-60) mg/dL Vital Signs Temp 36.9 C 05/27/18 11:30 Pulse 67 05/27/18 15:47 Resp 20 05/27/18 11:30 BP 143/84 H 05/27/18 11:30 Pulse Ox 96 05/27/18 11:30 Intake & Output 05/26/18 05/27/18 05/27/18 23:59 11:59 23:59 Output Total 300 / 300 Balance -300 / -300 Weight 68.039 kg 68.1 kg Output: Urine 300 / 300 Other: Urine Color Yellow Urine Appearance Clear Clear Comment Void x1 in the toilet. Voiding Methods Toilet Laboratory Results WBC 7.14 k/cumm (4.4-10.8) 05/26/18 17:00 RBC 4.35 m/cumm (4.00-5.20) 05/26/18 17:00 Hgb 14.6 g/dL (12.0-15.5) 05/26/18 17:00 Hct 42.4 % (36.0-46.0) 05/26/18 17:00 MCV 97.5 fL (80-95) H 05/26/18 17:00 MCH 33.6 pg (27.0-33.0) H 05/26/18 17:00 MCHC 34.4 g/dL (32.0-36.0) 05/26/18 17:00 RDW 13.3 % (11.7-14.6) 05/26/18 17:00 Plt Count 213 x1000/uL (130-400) 05/26/18 17:00 MPV 10.8 fL (8.0-11.0) 05/26/18 17:00 Immature Gran % 0.4 05/26/18 17:00 Neutrophils % 48.0 05/26/18 17:00 Lymphocytes % 40.3 05/26/18 17:00 Monocytes % 8.0 05/26/18 17:00 Eosinophils % 2.7 05/26/18 17:00 Basophils % 0.6 05/26/18 17:00 Absolute Neutrophils 3.43 k/cumm (1.2-6.7) 05/26/18 17:00 Absolute Lymphocytes 2.88 k/cumm (1.2-3.4) 05/26/18 17:00 Absolute Monocytes 0.57 k/cumm (0.11-0.7) 05/26/18 17:00 Absolute Eosinophils 0.19 k/cumm (0.0-0.7) 05/26/18 17:00 Absolute Basophils 0.04 k/cumm (0.0-0.2) 05/26/18 17:00 Sodium 137 mmol/L (136-145) 05/26/18 17:00 Potassium 4.0 mmol/L (3.5-5.1) 05/26/18 17:00 Chloride 104 mmol/L (98-107) 05/26/18 17:00 Carbon Dioxide 25.9 mmol/L (21.0-32.0) 05/26/18 17:00 Anion Gap 7.1 mmol/L (3-11) 05/26/18 17:00 BUN 20 mg/dL (7-18) H 05/26/18 17:00 Creatinine 0.77 mg/dL (0.55-1.02) 05/26/18 17:00 Estimated GFR/1.73 m2 >= 60.00 (mL/min/1.73m2) 05/26/18 17:00 Glucose 114 mg/dL (70-100) H 05/26/18 17:00 Hemoglobin A1c 5.4 % (4.5-6.2) 05/27/18 06:50 Calcium 8.7 mg/dL (8.5-10.1) 05/26/18 17:00 Magnesium 2.2 mg/dL (1.8-2.4) 05/26/18 17:00 Total Bilirubin 0.2 mg/dL (0.2-1.0) 05/26/18 17:00 AST 18 U/L (15-37) 05/26/18 17:00 ALT 26 U/L (12-78) 05/26/18 17:00 Alkaline Phosphatase 94 U/L (46-116) 05/26/18 17:00 Troponin I < 0.02 ng/mL (0.00-0.06) 05/27/18 09:05 Total Protein 7.5 g/dL (6.4-8.2) 05/26/18 17:00 Albumin 3.8 g/dL (3.4-5.0) 05/26/18 17:00 Triglycerides 236 mg/dL (30-150) H 05/27/18 06:50 Total Cholesterol 186 mg/dL (50-200) 05/27/18 06:50 LDL Cholesterol Direct 127 mg/dL (<100) H 05/27/18 06:50 HDL Cholesterol 33 mg/dL (40-60) L 05/27/18 06:50
[2018-05-27] MEDS: Clopidogrel 300 MG TAB PO (17:52)
[2018-05-27] MEDS: Acetaminophen 325 MG TAB PO (18:22)
[2018-05-27] MEDS: Atorvastatin 40 MG TAB PO (19:41)
[2018-05-27] MEDS: Enoxaparin 40 MG/0.4 ML SYR SC (19:43)
[2018-05-28 00:01] VITALS: PULSE 69
[2018-05-28 07:00] VITALS: PULSE 62
[2018-05-28 07:58] VITALS: BP 126/87; PULSE 70; RESP 20; TEMP 37.4; O2SAT 96
--- NOTE | 2018-05-28 09:10 | W.PM.DS.N ---
DS: Diagnosis Discharge Diagnosis (1) Exertional angina: Status: Acute (2) Abnormal stress ECG: Status: Acute Discharge Plan Disposition Patient Disposition: [facility] Condition: Stable Discharge Details Reason For Visit: UNSTABLE ANGINA, CHEST PAIN,ABNORMAL EKG Admit Date/Time: 05/26/18 20:03 Admit Provider: Junaid Dunbar Attending Provider: Junaid Dunbar Primary Care Provider: Judith Jerome [facility] Hospital Course: HPI: 67-year-old woman with a prior history of HTN, admitted from [facility] ED with complaints of exertional Chest Pain and Dyspnea. Mrs. Davies works locally at the [employer] in [facility]. She has noticed worsening exertional dyspnea and chest tightness over the last month. This is associated with heaviness in her arms and a sensation that her heart was beating unusually hard. Symptoms quickly resolved with rest. 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 Evaluation in the emergency room showed slight T-wave and st segment depressions in the precordial leads. Her troponin was negative. Of note, the patient's father was diagnosed with CAD in his 60's. Given her story the patient was referred for admission for further evaluation. Stress testing today confirmed suspicions of likely underlying CAD, with a large sized, severely intense but reversible defect involving the LAD. LVEF was normal. The patient is currently symptom free and has had negative troponins. No other events reported. Studies: Patient Name: HARDEEP DAVIES : 9Age: 67 Exam(s) a NM:NM MPI rest & stress grp Myocardial Perfusion Imaging - SPECT Guerrero protocol Date of study: 05/27/2018 *PATIENT PRESENTATION* Height: 162.6cm (64in) Blood Pressure: Weight: 68.2kg (150lb) BSA: 1.77m^2 Ordering physician: Jairo Dunbar Impressions: Abnormal study after maximal exercise. Summary: 1. Myocardial perfusion imaging: There is a moderate - large sized, severely intense, fully reversible defect involving the mid anterior and apical anterior and apical wall(s). This suggests moderate - large ischemia in the distribution of the left anterior descending coronary artery. 2. The calculated left ventricular ejection fraction after stress: 61%. LV global systolic function is normal. There is hypokinesis involving the apical wall(s) of the left ventricle. Recommendations: 1. Transfer for left heart cath. 2. Results discussed with hospitalist graduation coach. ECHO: *STUDY CONCLUSIONS* Summary: 1. Left ventricle: The cavity size was normal. Wall thickness was normal. Systolic function was normal. The estimated ejection fraction was 55-60%. Wall motion was normal; there were no regional wall motion abnormalities. 2. Right ventricle: The cavity size was normal. Systolic function was normal. 3. Left atrium: The atrium was mildly dilated. 4. Mitral valve: Mildly calcified annulus. Mildly thickened leaflets. There was mild regurgitation. 5. Inferior vena cava: The vessel was normal in size. The respirophasic diameter changes were in the normal range (greater than or equal to 50%), consistent with normal central venous pressure. PA AND LATERAL CHEST: Comparison is made with 01/16/16. The heart size is normal. The aorta is mildly tortuous. The lungs are well inflated and clear. No thoracic compression fractures are seen. There is no evidence of pneumothorax. IMPRESSION: Negative chest xray. Hospital Course: (1) Exertional angina: Current visit: Yes Status: Acute Evidence of progressively worsening stable angina by history, patient had an abnormal nuclear exercise stress today. Apparent Large sized, severely intense, fully reversible defect involving the mid anterior, apical anterior, and apical arana suggestive of moderate to large ischemia in the distribution of the LAD. LVEF intact. Continue home regimen of ASA, BB and KELI-I, and start high potency statin therapy. Patient was plavix loaded, and initiated on daily dosing today. Accepted in transfer by [facility] [place] [facility] for a diagnostic and likely therapeutic LHC. Currently remains asymptomatic. Home Meds and New Rx's Prescriptions: New atorvastatin [Lipitor] 40 mg Tablet 40 mg PO QPM 0 Days RF: 0 polyethylene glycol 3350 17 gram Powder In Packet 17 g PO DAILY PRN PRN (Reason: Constipation) 0 Days RF: 0 clopidogrel [Plavix] 75 mg Tablet 75 mg PO DAILY 0 Days Qty: 0 RF: 0 nitroglycerin [Nitrostat] 0.4 mg Tablet, Sublingual 0.4 mg Sublingual Q5 MIN PRN X3 PRN0 Days RF: 0 docusate sodium [Colace] 100 mg Capsule 100 mg PO TID PRN PRNQty: 0 RF: 0 omeprazole 20 mg Capsule,Delayed Release(Dr/Ec) 20 mg PO BID Qty: 0 RF: 0 enoxaparin [Lovenox] 40 mg/0.4 mL Syringe 40 mg subcut Q24H Qty: 0 RF: 0 Continue aspirin [Ecotrin Low Strength] 81 MG tablet,delayed release (DR/EC) 81 mg PO DAILY RF: 0 fluticasone 16 GM spray,suspension 50 mcg NS BID Qty: 1 RF: 0 acyclovir 400 MG tablet 400 mg PO BID Qty: 180 RF: 4 lisinopril 5 MG tablet 5 mg PO DAILY Qty: 90 RF: 4 atenolol 50 MG tablet 50 mg PO DAILY Qty: 90 RF: 4 Discharge Instructions Instructions: Angina Stand Alone Forms: Nursing Discharge Form Referrals: Judith Jerome NP [Primary Care Provider] - Activity:: Activity as Tolerated Equipment/Supplies:: No Equipment Needed Discharge Orders Discharge Orders: Discharge Order (Routine); Ordered 05/28/18 Ordered By: Ishmael Bradley Discharge Data Discharge Date/Time-TO BE ENTERED AT DEPARTURE: 05/28/18 10:40 Exam Const General: cooperative, comfortable and no acute distress Neck Neck: supple Resp Effort & Inspection: normal respiratory effort and not labored Auscultation: clear to auscultation bilaterally, no rales and wheezes Cardio Rate: regular rate Heart Sounds: S1 normal and S2 normal GI Palpation: soft, not firm, no guarding, not rigid and nontender Psych Attitude: cooperative Thought Content: normal Judgment: judgment good DS: Data Vitals/I&O Vitals and I&O: Vital Signs Temp 37.4 C 05/28/18 07:58 Pulse 70 05/28/18 07:58 Resp 20 05/28/18 07:58 BP 126/87 05/28/18 07:58 Pulse Ox 96 05/28/18 07:58 Intake & Output 05/27/18 05/27/18 05/28/18 11:59 23:59 11:59 Intake Total 790 / 790 Output Total 300 / 300 400 / 400 550 / 550 Balance -300 / -300 390 / 390 -540 / -540 Weight 68.1 kg Intake: IV Oral 790 / 790 Output: Urine 300 / 300 400 / 400 550 / 550 Other: Urine Color Yellow Yellow Yellow Urine Appearance Clear Clear Clear Urine Odor Normal Comment Void x1 in the toilet. Void x1 in the toilet. Voiding Methods Toilet Toilet Toilet Labs on day of discharge: Labs from last 24 hours 05/27/18 09:05 Troponin I < 0.02 Date of service: 05/28/18 Time of Service: 09:10
[2018-05-28 10:42] VITALS: PULSE 67
--- NOTE | 2018-05-28 12:24 | NUR.NOTE ---
Nursing Note: [place] [facility] [place] [facility] [phone]. Report given to Sandra on [facility] @ [phone].
--- NOTE | 2018-05-28 12:56 | DSE_ITS ---
DS: Diagnosis Discharge Diagnosis (1) Exertional angina: Status: Acute (2) Abnormal stress ECG: Status: Acute Discharge Plan Disposition Patient Disposition: [facility] Condition: Stable Discharge Details Reason For Visit: UNSTABLE ANGINA, CHEST PAIN,ABNORMAL EKG Admit Date/Time: 05/26/18 20:03 Admit Provider: Junaid Dunbar Attending Provider: Junaid Dunbar Primary Care Provider: Judith Jerome [facility] Hospital Course: HPI: 67-year-old woman with a prior history of HTN, admitted from [facility] ED with complaints of exertional Chest Pain and Dyspnea. Mrs. Davies works locally at the [employer] in [facility]. She has noticed worsening exertional dyspnea and chest tightness over the last month. This is associated with heaviness in her arms and a sensation that her heart was beating unusually hard. Symptoms quickly resolved with rest. 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 Evaluation in the emergency room showed slight T-wave and st segment depressions in the precordial leads. Her troponin was negative. Of note, the patient's father was diagnosed with CAD in his 60's. Given her story the patient was referred for admission for further evaluation. Stress testing today confirmed suspicions of likely underlying CAD, with a large sized, severely intense but reversible defect involving the LAD. LVEF was normal. The patient is currently symptom free and has had negative troponins. No other events reported. Studies: Patient Name: HARDEEP DAVIES : 9Age: 67 Exam(s) a NM:NM MPI rest & stress grp Myocardial Perfusion Imaging - SPECT Guerrero protocol Date of study: 05/27/2018 *PATIENT PRESENTATION* Height: 162.6cm (64in) Blood Pressure: Weight: 68.2kg (150lb) BSA: 1.77m^2 Ordering physician: Jairo Dunbar Impressions: Abnormal study after maximal exercise. Summary: 1. Myocardial perfusion imaging: There is a moderate - large sized, severely intense, fully reversible defect involving the mid anterior and apical anterior and apical wall(s). This suggests moderate - large ischemia in the distribution of the left anterior descending coronary artery. 2. The calculated left ventricular ejection fraction after stress: 61%. LV global systolic function is normal. There is hypokinesis involving the apical wall(s) of the left ventricle. Recommendations: 1. Transfer for left heart cath. 2. Results discussed with hospitalist flight control manager. ECHO: *STUDY CONCLUSIONS* Summary: 1. Left ventricle: The cavity size was normal. Wall thickness was normal. Systolic function was normal. The estimated ejection fraction was 55-60%. Wall motion was normal; there were no regional wall motion abnormalities. 2. Right ventricle: The cavity size was normal. Systolic function was normal. 3. Left atrium: The atrium was mildly dilated. 4. Mitral valve: Mildly calcified annulus. Mildly thickened leaflets. There was mild regurgitation. 5. Inferior vena cava: The vessel was normal in size. The respirophasic diameter changes were in the normal range (greater than or equal to 50%), consistent with normal central venous pressure. PA AND LATERAL CHEST: Comparison is made with 01/16/16. The heart size is normal. The aorta is mildly tortuous. The lungs are well inflated and clear. No thoracic compression fractures are seen. There is no evidence of pneumothorax. IMPRESSION: Negative chest xray. Hospital Course: (1) Exertional angina: Current visit: Yes Status: Acute Evidence of progressively worsening stable angina by history, patient had an abnormal nuclear exercise stress today. Apparent Large sized, severely intense, fully reversible defect involving the mid anterior, apical anterior, and apical arana suggestive of moderate to large ischemia in the distribution of the LAD. LVEF intact. Continue home regimen of ASA, BB and KELI-I, and start high potency statin therapy. Patient was plavix loaded, and initiated on daily dosing today. Accepted in transfer by [facility] [place] [facility] for a diagnostic and likely therapeutic LHC. Currently remains asymptomatic. Home Meds and New Rx's Prescriptions: New atorvastatin [Lipitor] 40 mg Tablet 40 mg PO QPM 0 Days RF: 0 polyethylene glycol 3350 17 gram Powder In Packet 17 g PO DAILY PRN PRN (Reason: Constipation) 0 Days RF: 0 clopidogrel [Plavix] 75 mg Tablet 75 mg PO DAILY 0 Days Qty: 0 RF: 0 nitroglycerin [Nitrostat] 0.4 mg Tablet, Sublingual 0.4 mg Sublingual Q5 MIN PRN X3 PRN0 Days RF: 0 docusate sodium [Colace] 100 mg Capsule 100 mg PO TID PRN PRNQty: 0 RF: 0 omeprazole 20 mg Capsule,Delayed Release(Dr/Ec) 20 mg PO BID Qty: 0 RF: 0 enoxaparin [Lovenox] 40 mg/0.4 mL Syringe 40 mg subcut Q24H Qty: 0 RF: 0 Continue aspirin [Ecotrin Low Strength] 81 MG tablet,delayed release (DR/EC) 81 mg PO DAILY RF: 0 fluticasone 16 GM spray,suspension 50 mcg NS BID Qty: 1 RF: 0 acyclovir 400 MG tablet 400 mg PO BID Qty: 180 RF: 4 lisinopril 5 MG tablet 5 mg PO DAILY Qty: 90 RF: 4 atenolol 50 MG tablet 50 mg PO DAILY Qty: 90 RF: 4 Discharge Instructions Instructions: Angina Stand Alone Forms: Nursing Discharge Form Referrals: Judith Jerome NP [Primary Care Provider] - Activity:: Activity as Tolerated Equipment/Supplies:: No Equipment Needed Discharge Orders Discharge Orders: Discharge Order (Routine); Ordered 05/28/18 Ordered By: Ishmael Bradley Discharge Data Discharge Date/Time-TO BE ENTERED AT DEPARTURE: 05/28/18 10:40 Exam Const General: cooperative, comfortable and no acute distress Neck Neck: supple Resp Effort & Inspection: normal respiratory effort and not labored Auscultation: clear to auscultation bilaterally, no rales and wheezes Cardio Rate: regular rate Heart Sounds: S1 normal and S2 normal GI Palpation: soft, not firm, no guarding, not rigid and nontender Psych Attitude: cooperative Thought Content: normal Judgment: judgment good DS: Data Vitals/I&O Vitals and I&O: Vital Signs Temp 37.4 C 05/28/18 07:58 Pulse 67 05/28/18 10:42 Resp 20 05/28/18 07:58 BP 126/87 05/28/18 07:58 Pulse Ox 96 05/28/18 07:58 Intake & Output 05/27/18 05/28/18 05/28/18 23:59 11:59 23:59 Intake Total 790 / 790 Output Total 400 / 400 550 / 550 Balance 390 / 390 -540 / -540 Intake: IV Oral 790 / 790 Output: Urine 400 / 400 550 / 550 Other: Urine Color Yellow Yellow Urine Appearance Clear Clear Urine Odor Normal Comment Void x1 in the toilet. Voiding Methods Toilet Toilet
== END 2018-05-28 10:40 | disposition short-term general hospital (02) ==
LOC: ER 19:33 → MS 05-27 05:13
PROVIDERS: Admitting Provider Internal Medicine; Emergency Provider Physician Assistant; PCP Nurse Practitioner Family; Visit Provider Internal Medicine
DX: I20.8 Other forms of angina pectoris (principal); R94.39 Abnormal result of other cardiovascular function study; Z82.49 Family history of ischemic heart disease and other diseases of the circulatory system; I10 Essential (primary) hypertension; I51.7 Cardiomegaly; I34.0 Nonrheumatic mitral (valve) insufficiency
CPT/HCPCS: 36415; 78452; 80053; 80061; 83721; 93005; 93016; 93018; 93306; 99219; 99233; 99239; 99285; J1650; 71046; 83036; 83735; 84484; 85025; 93010; 93017; 99217; 99226; 99284; G0378

== ENCOUNTER 2018-06-09 10:46 | Outpatient (RCR) | payer MEDICARE, SELFPAY | END 2018-06-19 23:59 | disposition home or self-care (01) | LOC: CR 10:46 | PROVIDERS: PCP Nurse Practitioner Family; Visit Provider Family Medicine | DX: Z51.89 Encounter for other specified aftercare (principal) ==

== ENCOUNTER 2018-07-20 08:00 | Outpatient (RCR) | payer MEDICARE, SELFPAY | END 2018-07-20 23:59 | disposition home or self-care (01) | LOC: CR 08:00 | PROVIDERS: PCP Nurse Practitioner Family; Visit Provider Family Medicine | DX: Z95.5 Presence of coronary angioplasty implant and graft (principal); I20.8 Other forms of angina pectoris; Z51.89 Encounter for other specified aftercare | CPT/HCPCS: S9472 ==

== ENCOUNTER 2018-08-19 13:20 | Outpatient (RCR) | payer MEDICARE, SELFPAY | END 2018-08-19 23:59 | disposition home or self-care (01) | LOC: CR 13:20 | PROVIDERS: PCP Nurse Practitioner Family; Visit Provider Family Medicine | DX: Z95.5 Presence of coronary angioplasty implant and graft (principal); I20.8 Other forms of angina pectoris; Z51.89 Encounter for other specified aftercare | CPT/HCPCS: S9472 ==

== ENCOUNTER 2018-08-23 00:40 | Outpatient (CLI) | payer MEDICARE, SELFPAY ==
--- NOTE | 2018-08-23 15:54 | DI.MAMMO_ITS ---
SYMPTOM/DIAGNOSIS: SCREENING Z12.31 BILATERAL SCREENING MAMMOGRAM: Mammograms were interpreted according to the usual protocol including computer analysis with CAD system, tomosynthesis and C view imaging. Comparison is made with exams from 2008 through 2016. The breasts are composed of heterogeneously dense fibroglandular tissue, breast density category C. No suspicious masses or suspicious microcalcifications are seen. There has been no significant change. IMPRESSION: Category 1-C, negative mammogram. Yearly screening mammography is recommended. [facility] ASSESSMENT OF FINDINGS: Negative. Category 1. Patient will receive a letter notifying them of these results. Bi-RADS category C. The breasts are heterogeneously dense, which may obscure small masses.
--- NOTE | 2018-08-23 16:26 | DI.RAD_ITS ---
SYMPTOMS/DIAGNOSIS: POSTMENOPAUSAL SCREENING, Z78.0, ASYMPTOMATIC MENOPAUSAL STATE DEXA SCAN WITH MAICOL: The MAICOL image shows no evidence of compression fractures. The bone mineral density measurements of the lumbar spine correspond to a total T score of -3.3, consistent with osteoporosis. The bone mineral density measurements of the left hip correspond to a total T score of -2.2 and a femoral neck T score of -2.5, also in the osteoporotic range. The bone mineral density measurements of the left forearm correspond to a total T score of -4.8, also indicating osteoporosis. IMPRESSION: Osteoporosis of the lumbar spine, left hip and left forearm.
== END 2018-08-23 01:00 ==
PROVIDERS: PCP Nurse Practitioner Family; Visit Provider Nurse Practitioner Family
DX: Z12.31 Encounter for screening mammogram for malignant neoplasm of breast (principal); M81.0 Age-related osteoporosis without current pathological fracture; Z78.0 Asymptomatic menopausal state
CPT/HCPCS: 77063; 77067; 77080

== ENCOUNTER 2018-09-07 12:57 | Outpatient (RCR) | payer MEDICARE, SELFPAY | END 2018-09-19 23:59 | disposition home or self-care (01) | LOC: CR 12:57 | PROVIDERS: PCP Nurse Practitioner Family; Visit Provider Family Medicine | DX: Z95.5 Presence of coronary angioplasty implant and graft (principal); I20.8 Other forms of angina pectoris; Z51.89 Encounter for other specified aftercare | CPT/HCPCS: S9472 ==

== ENCOUNTER 2018-09-30 00:49 | Outpatient (CLI) | payer MEDICARE, SELFPAY ==
[2018-09-30 08:29] LABS: Anion Gap 6.7 mmol/L (3-11); BUN 23 mg/dL (7-18); CO2 27.3 mmol/L (21.0-32.0); CREATININE 0.74 mg/dL (0.55-1.02); Calcium 8.7 mg/dL (8.5-10.1); Chloride 105 mmol/L (98-107); Glucose 121 mg/dL (70-100); Potassium 4.4 mmol/L (3.5-5.1); Sodium 139 mmol/L (136-145)
[2018-10-03 07:53] LABS: Vitamin D 25 Total 11.9 ng/ml (30-100)
== END 2018-09-30 01:09 ==
PROVIDERS: PCP Nurse Practitioner Family; Visit Provider Nurse Practitioner Family
DX: I10 Essential (primary) hypertension (principal); E78.5 Hyperlipidemia, unspecified; M81.0 Age-related osteoporosis without current pathological fracture; E16.2 Hypoglycemia, unspecified; R73.03 Prediabetes
CPT/HCPCS: 36415; 80048; 82306

== ENCOUNTER 2018-10-05 14:12 | Outpatient (RCR) | payer MEDICARE, SELFPAY | END 2018-10-20 23:59 | disposition home or self-care (01) | LOC: CR 14:12 | PROVIDERS: PCP Nurse Practitioner Family; Visit Provider Family Medicine | DX: Z95.5 Presence of coronary angioplasty implant and graft (principal); I20.8 Other forms of angina pectoris; Z51.89 Encounter for other specified aftercare | CPT/HCPCS: S9472 ==

== ENCOUNTER 2018-10-21 01:58 | Outpatient (RCR) | payer MEDICARE, SELFPAY | END 2018-11-17 23:59 | disposition home or self-care (01) | LOC: CR 01:58 | PROVIDERS: PCP Nurse Practitioner Family; Visit Provider Family Medicine | DX: Z95.5 Presence of coronary angioplasty implant and graft (principal); I20.8 Other forms of angina pectoris; Z51.89 Encounter for other specified aftercare | CPT/HCPCS: S9472 ==

== ENCOUNTER 2018-10-31 08:18 | Emergency (ER) | payer MEDICARE, SELFPAY ==
[2018-10-31 08:23] VITALS: BP 151/65; PULSE 58; RESP 16; TEMP 36.8; O2SAT 98
--- NOTE | 2018-10-31 08:37 | ED.GENADUL_ITS ---
Discharge Plan Disposition Condition: Stable Discharge Details Chief Complaint: Nk/Back Pain Clinical Impression: Sacroiliac joint pain Primary Care Provider: Judith Jerome ED Provider: Sam Maldonado Home Meds and New Rx's Prescriptions: New methocarbamol 500 mg tablet 500 mg PO Q6H PRN (Reason: Back pain or spasm) Qty: 14 RF: 0 prednisone 20 mg tablet 40 mg PO DAILY 5 Days Qty: 10 RF: 0 Continued flu vacc quad 2018-(6mos up) 60 mcg (15 mcg x 4)/0.5 mL suspension 0.5 ml IM ONCE Qty: 0.5 RF: 0 Prevnar 13 (PF) 0.5 mL syringe 0.5 ml IM ONCE Qty: 0.5 RF: 0 chlorpheniramine maleate 4 mg tablet 4 mg PO DAILY PRN PRNRF: 0 clopidogrel [Plavix] 75 mg tablet 75 mg PO DAILY RF: 0 lisinopril 20 mg tablet 40 mg PO DAILY RF: 0 atorvastatin [Lipitor] 40 mg tablet 40 mg PO DAILY RF: 0 metoprolol succinate 100 mg tablet extended release 24 hr 100 mg PO DAILY RF: 0 nitroglycerin 0.4 mg tablet, sublingual 0.4 mg SL ONCE RF: 0 aspirin [Ecotrin Low Strength] 81 MG tablet,delayed release (DR/EC) 81 mg PO DAILY RF: 0 acyclovir 400 MG tablet 400 mg PO BID Qty: 180 RF: 4 cholecalciferol (vitamin D3) 50,000 unit capsule 50,000 unit PO QWEEK 56 Days Qty: 8 RF: 0 cholecalciferol (vitamin D3) 2,000 unit capsule 2,000 unit PO DAILY Qty: 90 RF: 4 Discharge Instructions Instructions: Sciatica (ED), Sacroiliitis (ED) Additional Instructions: May follow-up with physical therapy as prescribed. Methocarbamol as needed for ongoing pain and spasm. Remove the Lidoderm patch in 12 hours You may use a TENS unit. Prednisone as prescribed. Return for worsening pain, the development of weakness or numbness of the leg, or any other acute concern Medical Decision Making 67-year-old female with antecedent 3 weeks of dull achy low back pain that seem to worsen when she rolled over in bed last night and this morning she has severe pain in the left low back radiating through her buttock and leg. No motor weakness or sensory changes. No incontinence. She has otherwise recently been doing well. She is afebrile and well-appearing with mild hypertension. Differential diagnosis includes sacroiliitis, sciatica, muscle strain. Patient IV access established, given fluids, Toradol, magnesium, and Lidoderm patch. She is improving with above-mentioned medical regimen. Screening basic panel is unremarkable. She is appropriate for outpatient management. Discussed with her low-dose burst of steroid and use of methocarbamol. She may perform gentle range of motion exercises at home. Return precautions to the ER were discussed the patient and her prior to discharge. Lab Data Lab results reviewed: Yes I reviewed the patient's lab results. Laboratory Results - last 24 hr 10/31/18 08:45 Sodium 139 Potassium 4.2 Chloride 104 Carbon Dioxide 26.0 Anion Gap 9.0 BUN 25 H Creatinine 0.73 Estimated GFR/1.73 m2 >= 60.00 Glucose 121 H Calcium 9.3 HPI General Mode of arrival: ambulatory . Date/Time Provider Initiated Documentation: 10/31/18 08:19 . Limitations to Documentation: no limitations . Information obtained by: patient . History of Present Illness 67 year old F presents to the emergency department with the chief complaint of Due to low back pain for 3 weeks, tightened overnight, worse and radiating , described as moderate and severe, Quality is described as aching and constant, and is localized to the back, left and lower extremity. Patient extremity. Patient started experiencing this hour(s) and it has been constant. No relieving factors improve symptom(s), Movement worsens symptoms . Patient notes no other symptoms.; denies fever/chills. Patient did receive the following treatments prior to arrival, none Related Data Home Medications Medication Instructions Recorded Confirmed aspirin [Ecotrin Low Strength] 81 mg PO DAILY tab-cap 03/16/13 10/31/18 acyclovir 400 mg PO BID #180 tab-cap 01/13/18 10/31/18 atorvastatin 40 mg tablet 40 mg PO DAILY 06/08/18 10/31/18 clopidogrel 75 mg tablet 75 mg PO DAILY 06/08/18 10/31/18 lisinopril 20 mg tablet 40 mg PO DAILY 06/08/18 10/31/18 metoprolol succinate ER 100 mg 100 mg PO DAILY 06/08/18 10/31/18 tablet,extended release 24 hr nitroglycerin 0.4 mg sublingual 0.4 mg SL ONCE 06/08/18 10/31/18 tablet pneumococcal 13-hailey conj 0.5 ml IM ONCE #0.5 ml 07/13/18 10/31/18 vaccine-dip crm (PF) 0.5 mL IM syringe chlorpheniramine 4 mg tablet 4 mg PO DAILY PRN PRN tab 07/14/18 10/31/18 cholecalciferol (vitamin D3) 2,000 2,000 unit PO DAILY #90 cap 10/10/18 10/31/18 unit capsule cholecalciferol (vitamin D3) 50,000 unit PO QWEEK 56 Days #8 cap 10/10/18 10/31/18 50,000 unit capsule methocarbamol 500 mg PO Q6H PRN #14 tab 10/31/18 prednisone 40 mg PO DAILY 5 Days #10 tab 10/31/18 Previous Rx's Medication Instructions Recorded acyclovir 400 mg PO BID #180 tab-cap 01/13/18 pneumococcal 13-hailey conj 0.5 ml IM ONCE #0.5 ml 07/13/18 vaccine-dip crm (PF) 0.5 mL IM syringe cholecalciferol (vitamin D3) 2,000 2,000 unit PO DAILY #90 cap 10/10/18 unit capsule cholecalciferol (vitamin D3) 50,000 unit PO QWEEK 56 Days #8 cap 10/10/18 50,000 unit capsule methocarbamol 500 mg PO Q6H PRN #14 tab 10/31/18 prednisone 40 mg PO DAILY 5 Days #10 tab 10/31/18 Allergies Allergy/AdvReac Type Severity Reaction Status Date / Time Sulfa (Sulfonamide Allergy Severe Unverified 10/31/18 08:26 Antibiotics) ciprofloxacin [From Cipro] Allergy Mild Unverified 10/31/18 08:26 Penicillins Allergy Mild Unverified 10/31/18 08:26 sulfamethoxazole Allergy Unverified 10/31/18 08:26 [From Septra] trimethoprim [From Septra] Allergy Unverified 10/31/18 08:26 hydrochlorothiazide AdvReac Intermediate TINGLING, Unverified 10/31/18 08:26 SWOLLEN LIPS General Stated Complaint: Nk/Back Pain CARON: 3 Review of Systems Review of Systems 8 systems reviewed and otherwise neg [facility] Medical History ASCVD (arteriosclerotic cardiovascular disease) (Chronic) Hyperlipidemia (Chronic) Essential hypertension (Chronic) Osteoporosis (Chronic 08/19/07) Vitamin D deficiency (Acute) Prediabetes (Chronic) Allergic rhinitis (Chronic) Tubular adenoma of colon (Chronic ~2014) 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 Paternal Grandfather No problems noted. Paternal Grandmother No problems noted. Brother No problems noted. Brother No problems noted. Daughter No problems noted. 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 Pleasant, well groomed, interacti ve. HEAD: Normocephalic, atraumatic ENT: Mucous membranes moist, oropharynx unremarkable, External ear exam unremarkable EYES: PERRL, EOMI NECK: Full ROM, no YESI, no menigismus CHEST/RESP: Nontender, clear to auscultation bilateral, no wheeze/rhonchi/rales CARDIOVASCULAR: RRR, no murmur, rub katarina. 2+ Rad pulse bilateral ABDOMEN: Soft, nontender, no mass. +Bowel sounds Back: Left SI joint tender, left sciatic notch tender EXT: Full ROM, no edema, no rash. Motor 5 out of 5. Sensation intact throughout Neuro: Grossly normal neurologic exam, conversant, interactive. Psych: Speech fluent, thoughts congruent, affect normal Course Vital Signs Temperature 36.8 C 10/31/18 08:23 Pulse 58 L 10/31/18 08:23 Respiratory Rate 16 10/31/18 08:23 Blood Pressure 151/65 H 10/31/18 08:23 Pulse Oximetry 98 10/31/18 08:23 Temperature 36.8 C 10/31/18 08:23 Temperature Source Temporal Artery Scan 10/31/18 08:23 Pulse 58 L 10/31/18 08:23 Respiratory Rate 16 10/31/18 08:23 Respiratory Effort Non-Labored 10/31/18 08:23 Blood Pressure 151/65 H 10/31/18 08:23 Pulse Oximetry 98 10/31/18 08:23 Oxygen Delivery Method Room Air 10/31/18 08:23 Oxygen Flow Rate 0 10/31/18 08:23 Pain Level 10 10/31/18 08:27
[2018-10-31] MEDS: Ketorolac 30 MG/ML VIAL IVP (08:42)
[2018-10-31] MEDS: MAGNESIUM SULFATE 2 GM/50 ML BAG IVPB (08:43)
[2018-10-31] MEDS: Lactated Ringers 1,000 ML 1000 ML IV (08:43)
[2018-10-31 09:00] LABS: BUN 25 mg/dL (7-18); CREATININE 0.73 mg/dL (0.55-1.02); Calcium 9.3 mg/dL (8.5-10.1); Chloride 104 mmol/L (98-107); Glucose 121 mg/dL (70-100); Potassium 4.2 mmol/L (3.5-5.1); Sodium 139 mmol/L (136-145)
[2018-10-31] MEDS: Lidocaine 5% Patch 1 PATCH TP (09:47)
[2018-10-31 11:23] VITALS: BP 151/65; PULSE 58; RESP 16; TEMP 36.8; O2SAT 98
== END 2018-10-31 11:23 | disposition home or self-care (01) ==
PROVIDERS: Emergency Provider Emergency Medicine; PCP Nurse Practitioner Family
DX: M53.3 Sacrococcygeal disorders, not elsewhere classified (principal); I10 Essential (primary) hypertension
CPT/HCPCS: 36415; 80048; 96361; 96365; 96366; 96375; 99284; J1885

== ENCOUNTER → 2018-11-16 12:20 | Outpatient (BNVA) | payer MEDICARE, SELFPAY | PROVIDERS: PCP Nurse Practitioner Family; Visit Provider Student in an Organized Health Care Education/Training Program | DX: I25.10 Atherosclerotic heart disease of native coronary artery without angina pectoris (principal); I10 Essential (primary) hypertension | CPT/HCPCS: 99204; 99215 ==

== ENCOUNTER 2018-11-30 07:14 | Outpatient (CLI) | payer MEDICARE, SELFPAY ==
[2018-11-30 07:53] LABS: Hemoglobin A1C 5.9 % (4.5-6.2)
[2018-11-30 08:17] LABS: Creatine Kinase 68 U/L (26-192); Magnesium 2.1 mg/dL (1.8-2.4)
[2018-12-01 07:31] LABS: Vitamin D 25 Total 36.6 ng/ml (30-100)
== END 2018-11-30 07:34 ==
PROVIDERS: PCP Nurse Practitioner Family; Referring Provider Student in an Organized Health Care Education/Training Program; Visit Provider Nurse Practitioner Family
DX: R73.03 Prediabetes (principal); E16.2 Hypoglycemia, unspecified; M62.838 Other muscle spasm; I25.10 Atherosclerotic heart disease of native coronary artery without angina pectoris; E55.9 Vitamin D deficiency, unspecified
CPT/HCPCS: 36415; 82306; 82550; 83036; 83735

== ENCOUNTER 2019-03-31 07:27 | Outpatient (CLI) | payer MEDICARE, SELFPAY ==
[2019-03-31 09:23] LABS: Calculated LDL 85 mg/dL; Cholesterol 149 mg/dL (50-200); HDL Cholesterol 38 mg/dL (40-60); Triglyceride 133 mg/dL (30-150)
== END 2019-03-31 07:47 ==
PROVIDERS: Visit Provider Student in an Organized Health Care Education/Training Program
DX: I25.10 Atherosclerotic heart disease of native coronary artery without angina pectoris (principal)
CPT/HCPCS: 36415; 80061; 83721

== ENCOUNTER → 2019-07-03 10:15 | Outpatient (BNVA) | payer MEDICARE, SELFPAY | PROVIDERS: PCP Nurse Practitioner Family; Referring Provider Nurse Practitioner Family; Visit Provider Internal Medicine Cardiovascular Disease | DX: I25.10 Atherosclerotic heart disease of native coronary artery without angina pectoris (principal); Z95.5 Presence of coronary angioplasty implant and graft; I10 Essential (primary) hypertension; E78.5 Hyperlipidemia, unspecified | CPT/HCPCS: 99204; 99215 ==

== ENCOUNTER 2019-11-09 22:02 | Outpatient (REF) | payer MEDICARE, SELFPAY | END 2019-11-09 22:22 | LOC: LBN 22:02 | PROVIDERS: PCP Nurse Practitioner Family; Visit Provider Nurse Practitioner Family | DX: J06.9 Acute upper respiratory infection, unspecified (principal) | CPT/HCPCS: 87449 ==

== ENCOUNTER 2019-12-20 14:33 | Outpatient (REF) | payer MEDICARE, SELFPAY ==
[2019-12-20 15:08] LABS: Bilirubin Negative (Negative); Blood Negative (Negative); Clarity Clear (Clear); Glucose Negative (Negative); Ketones Negative (Negative); Leukocyte Esterase Trace (Negative); Nitrite Negative (Negative); Specific Gravity 1.025 (1.005-1.025); Urobilinogen 0.2 EU/dL (Up TO 0.2); pH 5.5 (5-8)
[2019-12-20 15:16] LABS: Bacteria Rare HPF (Negative); Epithelial Cells Rare HPF (Negative); Other Cells Negative (Negative); RBC Negative HPF (0-2); WBC 0-2 HPF (0-5)
[2019-12-20 15:17] LABS: C & S Indicated? No; Casts Negative LPF (Negative); Crystals Mod Calcium Oxalate HPF (Negative); Mucus Negative (Negative)
== END 2019-12-20 14:53 ==
LOC: LBN 14:33
PROVIDERS: PCP Nurse Practitioner Family; Visit Provider Nurse Practitioner Family
DX: R30.0 Dysuria (principal); N39.41 Urge incontinence; R10.84 Generalized abdominal pain
CPT/HCPCS: 81003; 81015; 87480; 87510; 87660

== ENCOUNTER 2020-02-01 19:54 | Outpatient (REF) | payer MEDICARE, SELFPAY ==
[2020-02-01 18:39] LABS: Specific Gravity 1.007 (1.005-1.025)
[2020-02-01 18:42] LABS: Clarity Sl Cloudy (Clear)
[2020-02-01 18:59] LABS: Bacteria Many HPF (Negative); C & S Indicated? C&S Done As Ordered; Casts Negative LPF (Negative); Crystals Negative HPF (Negative); Epithelial Cells Rare HPF (Negative); Mucus Negative (Negative); RBC 0-2 HPF (0-2); WBC >50 HPF (0-5)
== END 2020-02-01 20:14 ==
LOC: LBN 19:54
PROVIDERS: PCP Nurse Practitioner Family; Visit Provider Nurse Practitioner Family
DX: R30.0 Dysuria (principal)
CPT/HCPCS: 87077; 81003; 81015; 87086; 87186

== ENCOUNTER → 2020-07-05 08:50 | Outpatient (BNVA) | payer MEDICARE, SELFPAY | PROVIDERS: PCP Nurse Practitioner Family; Referring Provider Nurse Practitioner Family; Visit Provider Internal Medicine Cardiovascular Disease | DX: I25.10 Atherosclerotic heart disease of native coronary artery without angina pectoris (principal); Z95.5 Presence of coronary angioplasty implant and graft; E78.5 Hyperlipidemia, unspecified; I10 Essential (primary) hypertension | CPT/HCPCS: 99214 ==

== ENCOUNTER 2020-07-15 11:50 | Outpatient (REF) | payer MEDICARE, SELFPAY ==
[2020-07-15 13:38] LABS: Anion Gap 7.1 mmol/L (3-11); BUN 21 mg/dL (7-18); CO2 25.9 mmol/L (21.0-32.0); CREATININE 0.65 mg/dL (0.55-1.02); Calculated LDL 93 mg/dL (<100); Chloride 104 mmol/L (98-107); Cholesterol 161 mg/dL (<200); Glucose 107 mg/dL (74-106); HDL Cholesterol 37 mg/dL (40-60); Potassium 4.3 mmol/L (3.5-5.1); Sodium 137 mmol/L (136-145); Triglyceride 155 mg/dL (<150)
[2020-07-15 13:42] LABS: Hemoglobin A1C 5.8 % (<5.7)
== END 2020-07-15 12:10 ==
LOC: LBN 11:50
PROVIDERS: PCP Nurse Practitioner Family; Visit Provider Nurse Practitioner Family
DX: I25.10 Atherosclerotic heart disease of native coronary artery without angina pectoris (principal); R73.03 Prediabetes; I10 Essential (primary) hypertension
CPT/HCPCS: 80048; 80061; 83036

== ENCOUNTER 2020-10-03 01:20 | Outpatient (CLI) | payer MEDICARE, SELFPAY ==
--- NOTE | 2020-10-03 08:15 | DI.DEXA_ITS ---
EXAM: XR DEXA BONE DENSITY W/WO MAICOL CLINICAL HISTORY: Osteoporosis,m81.0 TECHNIQUE: COMPARISON: No exams were available for comparison FINDINGS: DEXA scan was performed according to the usual protocol. Please see the accompanying data sheet. Findings for left hip scanning are T-score -2.3 with left femoral neck T-score -2.6. Prior scan of 2017 showed left hip T-score -2.2. Findings for lumbar spine scanning are T-score -3.1. Prior examination of 2018 showed lumbar T-score -3.3. Findings for left forearm scanning are T-score -4.4, prior examination also showed T-score -4.4. IMPRESSION: Findings consistent with osteoporosis according to the WHO criteria. The lateral vertebral scanogram shows no evidence of a vertebral compression fracture. RADIATION DOSE DELIVERED: Total DLP
--- NOTE | 2020-10-03 13:50 | DI.MAMMO_ITS ---
EXAM: MG MAMMO SCREENING CLINICAL HISTORY: screening,z12.39 TECHNIQUE: Mammograms were interpreted according to the usual protocol including computer analysis w [facility] CAD system, tomosynthesis and C-view imaging. COMPARISON: FINDINGS: Breasts are heterogeneously dense. No dominant mass or clumped microcalcification is identified in e ither breast. The current examination is compared with previous examinations including August 2018 and there has been no gross interval change in appearance in comparison with the prior studies. IMPRESSION: No specific evidence of malignancy at this time. Routine screening examinations are suggested at yea rly intervals in this age group according to the ACS ACR guidelines. BI-RADS Category 1 - Negative Breast Density - Category C - Heterogeneously dense
== END 2020-10-03 01:40 ==
PROVIDERS: PCP Nurse Practitioner Family; Visit Provider Nurse Practitioner Family
DX: M81.0 Age-related osteoporosis without current pathological fracture (principal); Z12.31 Encounter for screening mammogram for malignant neoplasm of breast
CPT/HCPCS: 77063; 77067; 77080

== ENCOUNTER 2021-07-08 02:33 | Outpatient (CLI) | payer MEDICARE, SELFPAY ==
[2021-07-08 12:38] LABS: BUN 17 mg/dL (7-18); CREATININE 0.7 mg/dL (0.55-1.02); Calcium 8.8 mg/dL (8.5-10.1); Calculated LDL 81 mg/dL (<100); Chloride 105 mmol/L (98-107); Cholesterol 144 mg/dL (<200); Glucose 105 mg/dL (74-106); HDL Cholesterol 37 mg/dL (40-60); Potassium 4.7 mmol/L (3.5-5.1); Sodium 140 mmol/L (136-145); Triglyceride 132 mg/dL (<150)
[2021-07-08 12:58] LABS: Hemoglobin A1C 5.7 % (<5.7)
== END 2021-07-08 02:34 | disposition home or self-care (01) ==
LOC: LOS 02:34
PROVIDERS: PCP Nurse Practitioner Family; Visit Provider Nurse Practitioner Family
DX: I25.10 Atherosclerotic heart disease of native coronary artery without angina pectoris (principal); R73.03 Prediabetes
CPT/HCPCS: 36415; 80048; 80061; 83036

== ENCOUNTER → 2021-07-14 11:11 | Outpatient (BNVA) | payer MEDICARE, SELFPAY | PROVIDERS: PCP Nurse Practitioner Family; Referring Provider Nurse Practitioner Family; Visit Provider Internal Medicine Cardiovascular Disease | DX: I25.10 Atherosclerotic heart disease of native coronary artery without angina pectoris (principal); E78.5 Hyperlipidemia, unspecified; Z95.5 Presence of coronary angioplasty implant and graft; I10 Essential (primary) hypertension | CPT/HCPCS: 99213 ==

== ENCOUNTER → 2022-02-24 00:39 | Outpatient (CLI) | payer MEDICARE, SELFPAY ==
--- NOTE | 2022-02-24 07:45 | DI.MAMMO_ITS ---
Exam(s) MAMMO SCREENING EXAM: MAMMO SCREENING CLINICAL HISTORY: screening,z12.39 TECHNIQUE: Mammograms were interpreted according to the usual protocol including computer analysis w [employer] CAD system, tomosynthesis and C-view imaging. COMPARISON: 2012 through 2020 FINDINGS: The breasts are composed of scattered fibroglandular densities, Breast Density category B. No suspicious masses or suspicious microcalcifications are seen. No skin thickening or abnormal axillary lymph nodes are seen. There has been no significant change from prior exams. IMPRESSION: BI-RADS Category 1, Negative mammogram Yearly screening mammography is recommended. Breast Density - Category B, scattered fibroglandular densities. A negative radiographic report should not delay biopsy if a dominant or clinically suspicious mass is present. Up to ten percent of cancers are not identified on mammography. A negative report may reinforce clinical impression. Adenosis and dense breasts may obscure an underlying neoplasm. False positive reports average 6 to 10%. Patient will receive a letter notifying them of these results.
== END ==
PROVIDERS: PCP Nurse Practitioner Family; Visit Provider Nurse Practitioner Family
DX: Z12.31 Encounter for screening mammogram for malignant neoplasm of breast (principal)
CPT/HCPCS: 77063; 77067

== ENCOUNTER 2022-04-08 16:25 | Emergency (ER) | payer MEDICARE, SELFPAY ==
[2022-04-08 16:32] VITALS: BP 141/74; PULSE 47; RESP 18; O2SAT 98
--- NOTE | 2022-04-08 16:47 | ED.GENADUL_ITS ---
Discharge Plan Disposition Patient Disposition: HOME Condition: Stable Discharge Details Clinical Impression: Fracture of left tibial plateau Primary Care Provider: Judith Jerome ED Provider: Kevin Nascimento Home Meds and New Rx's Prescriptions: New oxycodone-acetaminophen [Percocet] 5-325 mg tablet 1 tab PO Q8H PRN (Reason: pain) Qty: 6 0RF Colace Clear 50 mg capsule 50 mg PO DAILY Qty: 10 0RF Rx Instructions: to be taken if you are taking percocet No Action chlorpheniramine maleate 4 mg tablet 4 mg PO DAILY PRN PRN aspirin [Ecotrin Low Strength] 81 MG tablet,delayed release (DR/EC) 81 mg PO DAILY Label Comments: 06/24/17 Has not been taking. ts cholecalciferol (vitamin D3) 2,000 unit capsule 2,000 unit PO DAILY Qty: 90 4RF Rx Instructions: Start after 8wks of 50,000 IU weekly acyclovir 400 mg tablet 400 mg PO BID Qty: 180 3RF lisinopril 20 mg tablet 20 mg PO DAILY Qty: 90 3RF Rx Instructions: Take 1 tablet daily atorvastatin [Lipitor] 40 mg tablet 40 mg PO DAILY Qty: 90 3RF metoprolol succinate 100 mg tablet extended release 24 hr 100 mg PO DAILY Qty: 90 3RF nitroglycerin 0.4 mg tablet, sublingual 0.4 mg SL ONCE Qty: 25 0RF Discharge Instructions Instructions: Leg Fracture (ED) Additional Instructions: Please follow-up within 1 week at [facility] orthopedic surgery for further care/repair. Take medications as prescribed. Please return the emergency department develop worsening symptoms specifically numbness tingling pale color or discoloration of your limb change in sensation worsening pain fevers or other abnormal symptoms. Medical Decision Making 71-year-old female presents after lying on the ground for several hours as this morning when she twisted her knee at the bottom of the stairs in the basement and was unable to get up, was found by her daughter this evening, pain to left knee and left ankle, no obvious deformity, however decreased range of motion due to discomfort, consider sprain versus strain versus less likely dislocation versus fracture, muscle to consider component of rhabdomyolysis given lying on the ground for several hours not eating food or drinking water today, is alert and oriented moving all extremities with the exception of her painful left lower extremity which is currently in a splint. Low suspicion for intracranial injury or ACS or CVA; screening labs, fluids, x-ray, close reassessment 20: 26 tibial plateau fracture comminuted, patient denies falling onto that leg and felt as if it just gave out from under her, initial concern for pathologic fracture however patient does not have any signs of malignancy or systemic inflammation such as night sweats fevers weight loss or family history of malignancy or multiple myeloma, reviewed images with orthopedic surgeon Dr. Bowens who believes this may be related to severe osteoporosis however given the complexity of the fracture he recommends patient follow-up with [facility] orthopedic team for further management. Patient placed in slab splint. Given crutches made nonweightbearing. Pain control, strict return precautions for any neurovascular issues or worsening symptomatology; patient was splinted in partial knee flexion given severe pain with full extension. HPI General Date/Time Provider Initiated Documentation: 04/08/22 16:33 . HPI Narrative: 71-year-old female presents after twisting knee at bottom of stairs in the basement and falling to the ground has been on the ground since 8 AM this morning was found this evening by her daughter, pain to left knee and left ankle. Denies hitting head denies loss conscious denies chest pain shortness of breath cough fevers or others signs of illness. Denies blood thinner use. Related Data Home Medications Medication Instructions Recorded Confirmed aspirin 81 mg tablet,delayed 81 mg PO DAILY 03/16/13 04/08/22 release (Ecotrin Low Strength) chlorpheniramine maleate 4 mg 4 mg PO DAILY PRN PRN 07/14/18 04/08/22 tablet cholecalciferol (vitamin D3) 50 2,000 unit PO DAILY #90 caps 10/10/18 04/08/22 mcg (2,000 unit) capsule acyclovir 400 mg tablet 400 mg PO BID #180 tab-caps 01/09/22 04/08/22 atorvastatin 40 mg tablet (Lipitor) 40 mg PO DAILY #90 tabs 01/09/22 04/08/22 lisinopril 20 mg tablet 20 mg PO DAILY #90 tabs 01/09/22 04/08/22 metoprolol succinate 100 mg 100 mg PO DAILY #90 tabs 01/09/22 04/08/22 tablet,extended release 24 hr nitroglycerin 0.4 mg sublingual 0.4 mg sublingual ONCE #25 tabs 01/09/22 04/08/22 tablet docusate sodium 50 mg capsule 50 mg PO DAILY #10 caps 04/08/22 (Colace Clear) oxycodone-acetaminophen 5 mg-325 1 tab PO Q8H PRN pain #6 tabs 04/08/22 mg tablet (Percocet) Previous Rx's Medication Instructions Recorded cholecalciferol (vitamin D3) 50 2,000 unit PO DAILY #90 caps 10/10/18 mcg (2,000 unit) capsule acyclovir 400 mg tablet 400 mg PO BID #180 tab-caps 01/09/22 atorvastatin 40 mg tablet (Lipitor) 40 mg PO DAILY #90 tabs 01/09/22 lisinopril 20 mg tablet 20 mg PO DAILY #90 tabs 01/09/22 metoprolol succinate 100 mg 100 mg PO DAILY #90 tabs 01/09/22 tablet,extended release 24 hr nitroglycerin 0.4 mg sublingual 0.4 mg sublingual ONCE #25 tabs 01/09/22 tablet docusate sodium 50 mg capsule 50 mg PO DAILY #10 caps 04/08/22 (Colace Clear) oxycodone-acetaminophen 5 mg-325 1 tab PO Q8H PRN pain #6 tabs 04/08/22 mg tablet (Percocet) Allergies Allergy/AdvReac Type Severity Reaction Status Date / Time Sulfa (Sulfonamide Allergy Severe Verified 08/01/21 08:58 Antibiotics) ciprofloxacin [From Cipro] Allergy Mild Verified 08/01/21 08:58 Penicillins Allergy Mild Verified 08/01/21 08:58 sulfamethoxazole Allergy Verified 08/01/21 08:58 [From Septra] trimethoprim [From Septra] Allergy Verified 08/01/21 08:58 hydrochlorothiazide AdvReac Intermediate TINGLING, Verified 08/01/21 08:58 SWOLLEN LIPS General Stated Complaint: Orthopedic CARON: 3 Review of Systems Narrative: Review of Systems Constitutional: negative Eyes: negative ENT: negative Cardiovascular: negative Respiratory: negative Gastrointestinal: negative : negative Musculoskeletal: Leg pain Skin: negative Neurologic: negative Psych: negative PFSH All Active Problems (Updated 04/08/22 @ 20:30 by Kevin Nascimento MD) Fracture of left tibial plateau (Acute) ASCVD (arteriosclerotic cardiovascular disease) (Chronic) S/p stents x 4 to LAD 05/29/18 at [facility] for unstable angina Hyperlipidemia (Chronic) Essential hypertension (Chronic) Osteoporosis (Chronic) Dexa 09/06; declines osteoporosis meds Prediabetes (Chronic) Allergic rhinitis (Chronic) Tubular adenoma of colon (Chronic ~2014) Medical History (Updated 04/08/22 @ 20:30 by Kevin Nascimento MD) 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 s/p excision at [facility] Unstable angina pectoris due to coronary arteriosclerosis (~05/2018) S/p cardiac cath and stenting at [facility] 05/28/18 Surgical History S/P cardiac catheterization (~05/29/18) S/P right breast biopsy (~1988) Family History Mother , at 84 of metastatic lung cancer Lung cancer Hypertension Father , at 70 of [place] Heart disease Hyperlipidemia Renal failure Myocardial infarction Prostate cancer Type 2 diabetes mellitus Hypertension Brother No problems noted. Brother No problems noted. Daughter No problems noted. Maternal Grandfather , at 101 Brain aneurysm Maternal Grandmother No problems noted. Paternal Grandfather , age 74 Aneurysm Paternal Grandmother No problems noted. 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 Pets and animals: Yes Pets and animals: cat(s) and dog(s) Sexually active: Yes Do you think of yourself as: straight/heterosexual Current gender identity: female What is your relationship status?: How often do you talk on the phone with friends or family?: once per week How often do you get together with friends or relatives?: once per week How often do you attend jainism or muslim services?: decline to answer Do you belong to any clubs or organized social groups?: no Panel score (0-1 are the most socially isolated patients): 1 What type of physical activity do you participate in: none Frequency: does not exercise Annita/Jehovah'S Witness: No preference Special annita needs: No Seatbelt use: always Drive intox or ride w/intox fork truck driver: No Do you feel safe at home: Yes Do you feel safe in your relationship?: Yes Victim of physical abuse: No Victim of emotional abuse: No Victim of sexual abuse: No Would you like helpful sources: No History History 3 Para Hx # Term Pregnancies Multiple births Hx # Pregnancies Ectopic pregnancies AB induced 1 Hx Number of Living Children 1 AB spontaneous 1 Exam Narrative Exam Narrative: Physical Examination General: alert, awake, cooperative, resting comfortably, no acute distress HEENT: normocephalic, atraumatic; PERRL, EOM intact, conjunctiva normal; no nasal discharge; moist mucous membranes, oral and pharyngeal mucosa normal, tolerating secretions Neck: supple, trachea midline; full ROM Chest: normal to inspection Respiratory: normal respiratory effort, speaking in full sentences, clear to auscultation, no wheezing, rales or rhonchi Cardiac: regular rate, regular rhythm, S1S2 intact, no murmurs rubs or gallops GI: abdomen soft, non-tender, non-distended; no palpable mass or hepatosplenomegaly Skin: no lesions, rashes or trauma appreciated Neuro: AAOx3, normal speech Extremities: Decreased range of motion of left lower extremity due to pain specifically in left knee and ankle Psych: Appropriate mood and affect Course Vital Signs Vital signs: Vital Signs Pulse 47 L 04/08/22 16:32 Respiratory Rate 18 04/08/22 16:32 Blood Pressure 141/74 H 04/08/22 16:32 Pulse Oximetry 98 04/08/22 16:32 Temperature Source Oral 04/08/22 16:32 Pulse 47 L 04/08/22 16:32 Respiratory Rate 18 04/08/22 16:32 Respiratory Effort 04/08/22 16:42 Blood Pressure 141/74 H 04/08/22 16:32 Blood Pressure Position Standing 04/08/22 16:32 Pulse Oximetry 98 04/08/22 16:32 Oxygen Delivery Method Room Air 04/08/22 16:32 Oxygen Flow Rate 0 04/08/22 16:32 Pain Level 8 07/20/22 16:32 PAWSS Have you Been Recently Intoxicated or Drunk Within the Last 30 days?: No Have you Ever Experienced Previous Episodes of Alcohol Withdrawal?: No Have you ever Experienced Withdrawal Seizures?: No Have you ever Experienced Delirium Tremens(DT)s?: No Have you ever undergone Alcohol Rehabilitation Treatment (i.e, inpt ot outpatient treatment programs)?: No Have you ever Experienced Blackouts?: No Have you ever Combined Alcohol with other Downers within the last 90 days?: No Have you ever Combined Alcohol with any other Substance of Abuse during the last 90 days?: No Positive Blood Alcohol level on Presentation? [PCS.BAL]: No Evidence of Increased Autonomic Activity (i.e. HR>120, tremor, sweating, agitation, nausea)?: No Result: 0
[2022-04-08] MEDS: Normal Saline 500 ML 1000 ML IV (17:09)
[2022-04-08 17:23] LABS: Abs Immature Grans 0.08 10^3/uL (0.0-0.06); Absolute Basophil Count 0.04 10^3/uL (0.0-0.2); Absolute Eosinophil Count 0.05 10^3/uL (0.0-0.7); Absolute Lymphocyte Count 1.55 10^3/uL (1.2-3.4); Absolute Monocyte Count 0.55 10^3/uL (0.1-0.8); Absolute Neutrophil Count 10.51 10^3/uL (1.2-6.7); Basophils % 0.3; Eosinophils % 0.4; HCT 43.3 % (36.0-46.0); Immature Grans % 0.6; Lymphocytes % 12.1; MCH 33.6 pg (27.0-33.0); MCHC 34.6 % (32.0-36.0); MCV 97 fL (80-95); MPV 11.1 fL (8.0-11.0); Monocytes % 4.3; Neutrophils % 82.3; Platelet Count 296 10^3/uL (130-400); RBC 4.46 10^6/uL (3.93-5.22); RDW 12.2 % (11.7-14.6); RDW-SD 43.8 fL; WBC 12.77 10^3/uL (4.4-10.8)
[2022-04-08] MEDS: Ondansetron 4 MG/2 ML VIAL IVP (17:34)
[2022-04-08] MEDS: MORPHine 4 MG/ML SYR 2 MG IVP (17:34)
[2022-04-08 17:40] VITALS: BP 168/94; PULSE 56; RESP 16; O2SAT 99
[2022-04-08 17:41] LABS: ALT 54 U/L (14-59); AST 25 U/L (15-37); Albumin 4.1 g/dL (3.4-5.0); Alkaline Phosphatase 86 U/L (46-116); Anion Gap 8.4 mmol/L (3-11); BUN 29 mg/dL (7-18); Bilirubin, Total 0.5 mg/dL (0.2-1.0); CO2 25.6 mmol/L (21.0-32.0); CREATININE 0.7 mg/dL (0.55-1.02); Calcium 9.1 mg/dL (8.5-10.1); Chloride 101 mmol/L (98-107); Creatine Kinase 159 U/L (26-192); Glucose 142 mg/dL (74-106); Potassium 4.2 mmol/L (3.5-5.1); Sodium 135 mmol/L (136-145); Total Protein 7.8 g/dL (6.4-8.2)
--- NOTE | 2022-04-08 18:20 | DI.CT_ITS ---
Exam(s) CT LOWER EXTREMITY LT WO EXAM: CT LOWER EXTREMITY LT WO CLINICAL HISTORY: pain from hip to ankle from fall, mainly knee. TECHNIQUE: Imaging Protocol: Axial computed tomography images with coronal and sagittal reformatted images were created and reviewed. CONTRAST MATERIAL: Intravenous: Omnipaque 350 Contrast volume:structured data in ml Contrast route:I V - Oral: yes / no COMPARISON: No exams were available for comparison FINDINGS: OSSEOUS: There is a comminuted tibial plateau fracture involving medial and lateral tibial plateaus. There is comminuted involvement of the articular surface of the tibial plateau. The fracture lines extend into metaphysis of proximal diaphysis, medially. There are no fractures of the femoral condyles. Subtle suggestion of fibular head fracture, seen on the sagittal images. However, this may not be acute. There is a knee joint effusion-hemarthrosis noted. No evidence of patellar fracture. Small degenerative subarticular cysts seen in the posterior patell a. IMPRESSION: Severe multi fragmented comminuted tibial plateau fracture, with fractures extending to the medial co rtex tibial metadiaphysis. Possible subtle fracture of the fibular head (versus nonacute) RADIATION DOSE DELIVERED: 679.08mGy.cm Total DLP DATA REPOSITORY: All CT scans at this facility are submitted to the National Radiology Data Registry (NRDR) Dose Index Registry (DIR) with the [employer] (ACR). RADIATION OPTIMIZATION: All CT scans at this facility use at least one of these dose optimization te chniques: automated exposure control; mA and/or kV adjustment per patient size (includes targeted exa ms where dose is matched to clinical indication); or iterative reconstruction.
--- NOTE | 2022-04-08 18:56 | DI.VRAD_ITS ---
PROCEDURE INFORMATION: Exam: CT Left Lower Extremity Without Contrast, Knee Exam date and time: 04/08/2022 6:04 PM Age: 71 years old Clinical indication: Injury or trauma; Fall; Fracture, traumatic; Closed fracture; Patella or knee and tibia; Left; Upper end of tibia; Injury date: 04/08/22; Injury details: Fell down basement stairs TECHNIQUE: Imaging protocol: CT of the Left lower extremity without contrast was performed. Exam focused on the knee. Radiation optimization: All CT scans at this facility use at least one of these dose optimization techniques: automated exposure control; mA and/or kV adjustment per patient size (includes targeted exams where dose is matched to clinical indication); or iterative reconstruction. COMPARISON: No relevant prior studies available. FINDINGS: Bones/joints: Multi fragmented bilateral tibial plateau fractures with articular surface involvement, extending to the medial cortex of the tibial metadiaphysis. Small avulsion fracture of the lateral aspect of the medial tibial plateau. Soft tissues: Moderate joint effusion and extensive stranding/hemorrhage of the deep soft tissue compartment of the proximal leg. IMPRESSION: 1. Multi fragmented bilateral tibial plateau fractures with articular surface involvement, extending to the medial cortex of the tibial metadiaphysis. 2. Small avulsion fracture of the lateral aspect of the medial tibial plateau. 3. Moderate joint effusion and extensive stranding/hemorrhage of the deep soft tissue compartment of the proximal leg. Dictated and Authenticated by: Gavin Long MD. Ordering:NELIA Brown MD
--- NOTE | 2022-04-08 20:41 | NUR.NOTE ---
referral to Care Management to do [facility] Orthopedic referral to be seen within a week for a tibial plateau fx. Needs surgery.Nursing Note:
[2022-04-08 21:10] VITALS: BP 132/81; PULSE 55; RESP 14; TEMP 37; O2SAT 96
[2022-04-08 21:50] VITALS: BP 132/81; PULSE 55; RESP 14; TEMP 37; O2SAT 96
[2022-04-08] MEDS: oxyCODONE 5 mg/Acetaminophen 325 mg TAB 1 TAB (21:50)
[2022-04-08] MEDS: oxyCODONE 5 mg/Acetaminophen 325 mg TAB 1 TAB PO (21:50)
--- NOTE | 2022-04-09 13:05 | PDOC.ERCMACT ---
- If Service Date Differs Date of service: 04/09/22 Time of Service: 13:05 Care Management Activity Note Casi is seen in the ED for a tibial plateau fracture. At the request of ED provider, CM coordinates a referral to [facility] to assist Casi in obtaining a surgical appointment.
== END 2022-04-08 21:49 | disposition home or self-care (01) ==
PROVIDERS: Emergency Provider Emergency Medicine; PCP Nurse Practitioner Family
DX: S82.142A Displaced bicondylar fracture of left tibia, initial encounter for closed fracture (principal); X50.1XXA Overexertion from prolonged static or awkward postures, initial encounter; W18.30XA Fall on same level, unspecified, initial encounter; Y92.89 Other specified places as the place of occurrence of the external cause
CPT/HCPCS: 29515; 36415; 80053; 82550; 96361; 96374; 96375; 99284; 73700; 85025; J2270; J2405

== ENCOUNTER 2022-08-05 18:59 | Outpatient (REF) | payer MEDICARE, SELFPAY ==
[2022-08-05 21:13] LABS: Clarity Cloudy (Clear); Specific Gravity 1.013 (1.005-1.025)
[2022-08-05 21:14] LABS: Bacteria Many HPF (Negative); Casts 3-5 Hyaline LPF (Negative); Crystals Negative HPF (Negative); Epithelial Cells Few HPF (Negative); Mucus Negative (Negative); WBC 20-50 HPF (0-5)
[2022-08-05 21:15] LABS: C & S Indicated? Yes
== END 2022-08-05 19:00 | disposition home or self-care (01) ==
LOC: LBN 18:59
PROVIDERS: PCP Nurse Practitioner Family; Visit Provider Nurse Practitioner Family
DX: N39.0 Urinary tract infection, site not specified (principal)
CPT/HCPCS: 87077; 81003; 81015; 87086; 87186

== ENCOUNTER 2022-09-18 10:14 | Outpatient (CLI) | payer MEDICARE, SELFPAY ==
--- NOTE | 2022-09-18 10:00 | RT.EKG_ITS ---
APPROVED REPORT Exam: Resting ECG Reason for Exam: cardiac evaluation Patient Location: O HR:62 bpm ECG Measurements Heart Rate 62 AXIS AL 178 P 2 QRSd 103 QRS -40 QT 422 T 44 QTc 429 Conclusion Sinus rhythm...normal P axis, V-rate 50- 99 Left anterior fascicular block...axis(240,-40), init forces inf Possible anterior infarct, old...Q >40mS, abnormal ST-T, V2-V5
== END 2022-09-18 10:15 | disposition home or self-care (01) ==
LOC: DI.CARD 10:15
PROVIDERS: PCP Nurse Practitioner Family; Visit Provider Internal Medicine Cardiovascular Disease
DX: I25.10 Atherosclerotic heart disease of native coronary artery without angina pectoris (principal); E78.5 Hyperlipidemia, unspecified; Z95.5 Presence of coronary angioplasty implant and graft; I44.1 Atrioventricular block, second degree; I10 Essential (primary) hypertension
CPT/HCPCS: 93010

== ENCOUNTER → 2022-09-18 10:39 | Outpatient (BNVA) | payer MEDICARE, SELFPAY | PROVIDERS: PCP Nurse Practitioner Family; Referring Provider Nurse Practitioner Family; Visit Provider Internal Medicine Cardiovascular Disease | DX: I25.10 Atherosclerotic heart disease of native coronary artery without angina pectoris (principal); I10 Essential (primary) hypertension; E78.5 Hyperlipidemia, unspecified; Z95.5 Presence of coronary angioplasty implant and graft | CPT/HCPCS: 93005; 99214 ==

== ENCOUNTER 2022-12-18 13:50 | Outpatient (REF) | payer MEDICARE, SELFPAY | END 2022-12-18 13:51 | disposition home or self-care (01) | LOC: LBN 13:50 | PROVIDERS: PCP Nurse Practitioner Family; Visit Provider Nurse Practitioner Family | DX: R39.15 Urgency of urination (principal) | CPT/HCPCS: 87077; 87086; 87186 ==

== ENCOUNTER 2023-03-04 00:45 | Outpatient (CLI) | payer MEDICARE, SELFPAY ==
--- NOTE | 2023-03-04 09:00 | DI.MAMMO_ITS ---
Exam(s) MAMMO SCREENING EXAM: MAMMO SCREENING CLINICAL HISTORY: screening Z12.39 FOR BREAST CANCER. TECHNIQUE: Bilateral full field digital CC and MLO mammographic images were obtained with 3D tomosyn thesis and utilizing computer aided detection (CAD). COMPARISON: Prior mammograms were reviewed. FINDINGS: There has been no significant change in the appearance and distribution of the fibroglandular tissue. There are no new spiculated masses nor malignant appearing microcalcification groups. There is no significant architectural distortion nor skin thickening-retraction. IMPRESSION: No radiographic evidence of malignancy. BI-RADS Category 1 - Negative Breast Density - Category B - Scattered areas of fibroglandular density Breast density Category C or D implies that the patient has dense breast tissue. Dense breast tissue can make it harder to find cancer on a mammogram. Dense breast tissue is also associated with an incr eased risk of breast cancer. This information about the result of the mammogram report was provided to the patient to raise their awareness. Use this report when you speak with the patient about their risks for breast cancer, which includes their family history. At that time, you may recommend additional screening tests (Ultrasoun d or MRI) as these tests may add significant information. A negative radiographic report should not delay biopsy if a dominant or clinically suspicious mass is present. Up to ten percent of cancers are not identified on mammography. A negative report may reinforce clinical impression. Adenosis and dense breasts may obscure an underlying neoplasm. False positive reports average 6 to 10%. Patient will receive a letter notifying them of these results.
== END 2023-03-04 01:05 ==
LOC: DI 00:45
PROVIDERS: PCP Nurse Practitioner Family; Visit Provider Nurse Practitioner Family
DX: Z12.31 Encounter for screening mammogram for malignant neoplasm of breast (principal)
CPT/HCPCS: 77063; 77067

== ENCOUNTER 2023-03-06 15:33 | Outpatient (REF) | payer MEDICARE, SELFPAY | END 2023-03-06 15:34 | disposition home or self-care (01) | LOC: LBN 15:33 | PROVIDERS: PCP Nurse Practitioner Family; Visit Provider Physician Assistant | DX: N39.0 Urinary tract infection, site not specified (principal) | CPT/HCPCS: 87077; 87086; 87186 ==

== ENCOUNTER 2023-03-12 01:18 | Outpatient (CLI) | payer MEDICARE, SELFPAY ==
[2023-03-12 13:06] LABS: Anion Gap 6.9 mmol/L (3-11); BUN 22 mg/dL (7-18); CO2 27.1 mmol/L (21.0-32.0); CREATININE 0.7 mg/dL (0.55-1.02); Calcium 8.9 mg/dL (8.5-10.1); Chloride 105 mmol/L (98-107); Glucose 116 mg/dL (74-106); Potassium 4.7 mmol/L (3.5-5.1); Sodium 139 mmol/L (136-145)
== END 2023-03-12 01:19 | disposition home or self-care (01) ==
LOC: LOS 01:18
PROVIDERS: PCP Nurse Practitioner Family; Visit Provider Nurse Practitioner Family
DX: I25.10 Atherosclerotic heart disease of native coronary artery without angina pectoris (principal); R73.03 Prediabetes
CPT/HCPCS: 36415; 80048

== ENCOUNTER → 2023-05-26 14:02 | Outpatient (BNVA) | payer MEDICARE, SELFPAY | PROVIDERS: PCP Nurse Practitioner Family; Referring Provider Nurse Practitioner Family; Visit Provider Surgery | DX: Z12.11 Encounter for screening for malignant neoplasm of colon (principal); Z86.010 Personal history of colon polyps ==

== ENCOUNTER 2023-06-18 06:59 | Day surgery (SDC) | payer MEDICARE, SELFPAY ==
--- NOTE | 2023-06-17 19:47 | W.PM.DSUDISC ---
Date of service: 06/18/23 Time of Service: 09:11 Discharge Plan Disposition Patient Disposition: Home Condition: Good Discharge Details Reason For Visit: Screening colonoscopy Attending Provider: Rogers Chaudhary Primary Care Provider: Judith Jerome Home Meds and New Rx's Prescriptions: Continued chlorpheniramine maleate 4 mg tablet 4 mg PO DAILY PRN PRN estradiol 0.01 % (0.1 mg/gram) cream 0.5 g vaginal .Twice a week Qty: 42.5 4RF aspirin [Ecotrin Low Strength] 81 MG tablet,delayed release (DR/EC) 81 mg PO DAILY Patient Comments: 06/24/17 Has not been taking. ts cholecalciferol (vitamin D3) 2,000 unit capsule 2,000 unit PO DAILY Qty: 90 4RF Rx Instructions: Start after 8wks of 50,000 IU weekly hydroxyzine HCl 25 mg tablet 25 mg PO TID PRN (Reason: anxiety) Qty: 60 3RF acyclovir 400 mg tablet 400 mg PO BID Qty: 180 3RF loperamide 2 mg capsule 4 mg PO DAILY MDD 16mg PRN (Reason: loose stool) Qty: 180 0RF Rx Instructions: 2 caps daily and 1 capsule after each loose stool. lisinopril 20 mg tablet 20 mg PO DAILY Qty: 90 3RF Rx Instructions: Take 1 tablet daily metoprolol succinate 100 mg tablet extended release 24 hr 100 mg PO DAILY Qty: 90 3RF atorvastatin [Lipitor] 40 mg tablet 40 mg PO DAILY Qty: 90 3RF nitroglycerin 0.4 mg tablet, sublingual 0.4 mg SL ONCE Qty: 25 1RF Discontinued polyethylene glycol 3350 17 gram/dose powder 238 g PO ONCE Qty: 238 0RF Rx Instructions: take per colonoscopy instructions bisacodyl [Dulcolax (bisacodyl)] 5 mg tablet,delayed release (DR/EC) 5 mg PO ONCE Qty: 4 0RF Rx Instructions: take per colonoscopy instructions Discharge Instructions Instructions: Colorectal Polyps (GEN) Additional Instructions: Casi, we were able to finish your colonoscopy today without any difficulty. Your prep was excellent and I could see everything just fine. I did find 1 polyp. It was small. I removed it completely. It will take a week or 2 for me to get the results of the pathology report, but once I have that I will be in touch. If you need anything in the meantime, please do not hesitate to call. 1. If tolerated, consume a soft, low fiber diet for 1-2 days. 2[address] Do not drive, drink alcohol, operate machinery, make critical decisions, or do activities that require coordination or balance for 24 hours. 3. Because air was put into your colon during the procedure, expelling air from your rectum (passing gas or farting) is normal. 4. You may not have a bowel movement for 1-3 days because of the colonoscopy prep. This is normal. 5. Go directly to the emergency room if you notice any of the following: Develop chills (warm to touch), or if you have a thermometer and your temperature is above 101 Difficulty breathing or difficultly swallowing Persistent vomiting Severe abdominal pain, other than gas cramps Severe chest pain Black, tarry stools Any bleeding ? exceeding one tablespoon 6. Call your physician if the site where your intravenous was started becomes red, swollen, painful, and warm to touch. 7. Your physician has reviewed your pre-procedure medications. Please continue to take those medications as previously ordered. You will be given specific information/education regarding any changes to your medications before leaving. Stand Alone Forms: Anesthesia Discharge InstKimberly [place] (DSU) Activity:: Activity as Tolerated Diet:: As Tolerated Discharge Orders Discharge Orders: Discharge Order (Routine); Ordered 06/17/23 Ordered By: Rogers Chaudhary DS: Diagnosis Discharge Diagnosis (1) Screen for colon cancer: Status: Acute Asessment and Plan: Follow-up on polypectomy results
--- NOTE | 2023-06-17 19:48 | COLE_ITS ---
Date of service: 06/18/23 Time of Service: 09:12 Colonoscopy Report Date of procedure: 06/18/23 Pre-op diagnosis general: screening colonoscopy Post-op diagnosis procedure note: other (Colon polyp) Procedure: Colonoscopy with polypectomy Surgeon: Rogers Chaudhary Anesthesia Type: General:No Airway Estimated blood loss (mL): 5 Pathology: other (0.25 cm polyp at 50 cm from the anus) Complications: None Disposition: same day Indications: Casi is a 72 year old woman with a history of adenomatous polyps who is here for her next screening colonoscopy Prep: Miralax/Dulcolax Procedure Start Time: 08:32 Procedure End Time: 08:59 Retraction Time: 20 Findings: 0.25 cm polyp at 50 cm from the anus Procedure Description: After the induction of monitored anesthetic care, and with the patient in left lateral decubitus position, I began by performing an external anorectal exam.? Perineum and skin were normal, as was the anal verge.? There was no evidence of external hemorrhoids.? Next, I performed a digital rectal exam.? I did not appreciate any abnormal findings.? Next, I advanced a colonoscope into the rectal vault.? I performed retroflexion.? This was normal.? Using insufflation, I then advanced the colonoscope beyond the rectal folds and into the sigmoid colon before advancing towards the cecum.? The quality of the prep was excellent.? The scope was noted to be in the cecum by identification of the ileocecal valve and appendiceal orifice.? I then began withdrawing the colonoscope using repeated irrigation as necessary for full evaluation of the colonic mucosa. Around 50 cm from the anal verge I identified a 0.25 cm polyp. ?It appeared sessile in character. ?I was able to remove this with a cold forcep polypectomy. ?I examined the site, and there was minimal bleeding. ?Once this was completed, I continued to withdraw the scope and examine the remainder of the colonic mucosa. ?Once the scope was withdrawn to the level of the rectum, great care was taken to examine portions of the rectal folds.? Finally, the s cope was withdrawn and the patient was brought to the same-day surgery recovery unit as the anesthetic wore off. ?The findings and instructions were shared with the patient prior to discharge.
[2023-06-18 07:24] VITALS: BP 161/80; PULSE 58; RESP 16; TEMP 36.6; O2SAT 98
[2023-06-18] MEDS: Lactated Ringers 1,000 ML 80 ML IV (07:44)
--- NOTE | 2023-06-18 08:09 | W.ANESPRE ---
General Info Date of Service Date Performed: 06/18/23 Height: 5 ft 3 in Weight: 68.1 kg Body Mass Index (BMI): 26.6 Surgical Procedure: Operation Date: 06/18/23 07:35 Proposed Procedure Side Surgeon p Colonoscopy Rogers Chaudhary MD Actual Procedure Side Surgeon p Colonoscopy Not Applicable Rogers Chaudhary MD Pre-Op Diagnosis Post-Op Diagnosis Screening Meds Allergies and Home Medications Allergies Allergy/AdvReac Type Severity Reaction Status Date / Time Sulfa (Sulfonamide Allergy Severe Verified 06/18/23 07:34 Antibiotics) ciprofloxacin [From Cipro] Allergy Mild Verified 06/18/23 07:34 Penicillins Allergy Mild Verified 06/18/23 07:34 sulfamethoxazole Allergy Verified 06/18/23 07:34 [From Septra] trimethoprim [From Septra] Allergy Verified 06/18/23 07:34 hydrochlorothiazide AdvReac Intermediate TINGLING, Verified 06/18/23 07:34 SWOLLEN LIPS oxycodone AdvReac Verified 06/18/23 07:34 Home Medication Medication Instructions Recorded aspirin 81 mg tablet,delayed 81 mg PO DAILY 03/16/13 release (Ecotrin Low Strength) chlorpheniramine maleate 4 mg 4 mg PO DAILY PRN PRN 07/14/18 tablet cholecalciferol (vitamin D3) 50 2,000 unit PO DAILY #90 caps 10/10/18 mcg (2,000 unit) capsule hydroxyzine HCl 25 mg tablet 25 mg PO TID PRN anxiety #60 tabs 07/06/22 acyclovir 400 mg tablet 400 mg PO BID #180 tab-caps 10/28/22 loperamide 2 mg capsule 4 mg PO DAILY PRN loose stool #180 12/18/22 caps estradiol 0.01% (0.1 mg/gram) 0.5 g vaginal .Twice a week #42.5 03/12/23 vaginal cream grams atorvastatin 40 mg tablet (Lipitor) 40 mg PO DAILY #90 tabs 03/24/23 lisinopril 20 mg tablet 20 mg PO DAILY #90 tabs 03/24/23 metoprolol succinate 100 mg 100 mg PO DAILY #90 tabs 03/24/23 tablet,extended release 24 hr nitroglycerin 0.4 mg sublingual 0.4 mg sublingual ONCE #25 tabs 03/24/23 tablet Current Visit Medications: Current Medications Generic Name Dose Route Start Last Admin Trade Name Adri PRN Reason Stop Dose Admin Hyoscyamine Sulfate 0.125 mg 06/17/23 19:50 Hyoscyamine 0.125 Mg Sl/Oral/Chew SL 07/17/23 19:49 DIRECTED PRN Ringer's Solution 1,000 mls @ 80 mls/hr 06/18/23 06:00 06/18/23 07:44 IV 06/18/23 23:59 80 mls/hr INFUSION KAYLI Administration IV Miscellaneous Supplies 1 each 06/18/23 06:00 Iv Access IV 06/18/23 23:59 DIRECTED KAYLI Ondansetron HCl 4 mg 06/17/23 19:50 Ondansetron 4 Mg/2 Ml Vial IVP 07/17/23 19:49 Q4H PRN PRN Nausea / Vomiting Sodium Chloride 0 ml 06/18/23 06:00 Normal Saline Flush 10 Ml Syr IV 06/18/23 23:59 PRN PRN Sodium Chloride 0 ml 06/18/23 06:00 Normal Saline 10 Ml Vial IJ 06/18/23 23:59 DIRECTED PRN Sterile Water 0 ml 06/18/23 06:00 Water,Injection,Sterile 10 Ml Vial IJ 06/18/23 23:59 DIRECTED PRN PFSH Active Problems Active Problems: Problem Status Onset Code Screen for colon cancer Z12.11 Recurrent cystitis N30.90 ASCVD (arteriosclerotic cardiovascular disease) I25.10 Hyperlipidemia E78.5 Essential hypertension I10 Osteoporosis M81.0 Vitamin D deficiency E55.9 Allergic rhinitis J30.9 Tubular adenoma of colon ~2014 D12.6 Medical History Medical History 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 s/p excision at [facility] [place] Unstable angina pectoris due to coronary arteriosclerosis (~05/2018) S/p cardiac cath and stenting at [facility] [place] 05/28/18 Surgical History Surgical History S/P cardiac catheterization (~05/29/18) S/P ORIF (open reduction internal fixation) fracture (~2021) Left tibial plateau fracture S/P right breast biopsy (~1988) Tobacco Smoking/Tobacco Use Status: Never Passive smoking exposure: Yes Second hand exposure: Yes Alcohol Alcohol Intake: current Alcohol intake frequency: a few times a week Alcohol type: wine Substance Use Substance use: Never Substance use type: does not use Prental History History 3 Para Hx # Term Pregnancies Multiple births Hx # Pregnancies Ectopic pregnancies AB induced 1 Hx Number of Living Children 1 AB spontaneous 1 Vital Signs and Lab Results Vital Signs Most Recent Vital Signs in EMR: Most Recent Vital Signs Temp Pulse Resp BP Pulse Ox 36.6 C 58 L 16 161/80 H 98 06/18/23 07:24 06/18/23 07:24 06/18/23 07:24 06/18/23 07:24 06/18/23 07:24 Lab Results Blood Type / Crossmatch: No Data to Display Complete Blood Count: No Data to Display Complete Metabolic Panel: No Data to Display Liver Function Panel: No Data to Display Coagulation Panel: No Data to Display Cardiac Panel: No Data to Display Arterial Blood Gas: No Data to Display Venous Blood Gas: No Data to Display Pancreas Panel: No Data to Display Thyroid Panel: No Data to Display Infectious Disease: No Data to Display Blood Cultures: No Data to Display Toxicology Panel: No Data to Display Anesthesia Assessment and Plan Anesthesia History Personal History: No History of Anesthesia Complications Family History: No Family History of Anesthesia Complications Exercise Tolerance Exercise Tolerance: Metabolic Equivalents>4 Pertinent Negatives Pertinent Negatives: No Symptoms of GERD Cardiac & Pulmonary Exam Cardiac Exam: Normal S1/S2 Heart Sounds Pulmonary Exam: Clear Bilateral Breath Sounds Implantable Cardiac Device Does patient have a Pacemaker or an ICD?: No Airway Exam Known Difficult Airway: No Mallampati Class: 2 Mouth Opening: Normal (> 3cm) Thyromental Distance: Greater than 3 cm Neck Range of Motion: Full ROM Neck Circumference: Normal Teeth Condition: Normal Dentition ASA Classification ASA Score: ASA 2 Emergency Case?: No NPO Status NPO Status: NPO Clears >2 hours, Solids >8 hours Anesthesia Plan Resuscitation Status: Full Code Anesthesia Technique: General Anesthesia Airway Planned: Natural Airway Monitors Used: Standard Monitors
[2023-06-18 08:10] VITALS: BMI 26.6
--- NOTE | 2023-06-18 08:45 | BOWEL_PTH ---
PATIENT: Casi Clifford LOC: [facility] U#:[id number] AGE/SX: 72/F ROOM: RE06/18/[address]: Rogers Chaudhary MD : [id number] BED: DIS: 06/18/2023 SPEC #: [id number] RECD: 06/18/23 12:22 STATUS: [facility] #: [id number] RAFI: 06/18/23 08:[address]: Rogers Chaudhary DEPT: Surgical Specimen RECD BY: Pamela Zhang ENTERED: 06/18/23 12:22 SP TYPE: Bowel OTHR DR: Judith Jerome, YVES Tissues: 1 - BIOPSY BOWEL Procedures: GROSS AND MICRO LEVEL 4 Comments: [id number]
[2023-06-18 09:05] VITALS: BP 111/63; PULSE 62; RESP 16; TEMP 36.2; O2SAT 97
--- NOTE | 2023-06-18 09:19 | W.ANESPOSTOP ---
Postoperative Evaluation Date, Time and Location Date Performed: 06/18/23 Time Performed: 09:19 Patient Location: Day Surgery Unit Vital Signs Most Recent Imported Vital Signs: Most Recent Vital Signs Temp Pulse Resp BP Pulse Ox 36.2 C L 62 16 111/63 97 06/18/23 09:05 06/18/23 09:05 06/18/23 09:05 06/18/23 09:05 06/18/23 09:05 Pain Score Most Recent Pain Score: Most Recent Pain Score Pain Level 0 06/18/23 09:05 Assessment Mental Status: Awake (Alert & Oriented to Patient Baseline) Airway and Respiratory Function: Patent airway with normal (patient baseline) respiratory exam Cardiovascular Function: Hemodynamically Stable Hydration Status: Adequately Hydrated Nausea & Vomiting: No Nausea or Vomiting Pain: Pt. Denies Any Pain Peripheral Nerve Block: Patient did not receive a nerve block
[2023-06-18 09:28] VITALS: BP 143/71; PULSE 55; RESP 16; TEMP 36.4; O2SAT 100
== END 2023-06-18 09:56 | disposition home or self-care (01) ==
PROVIDERS: PCP Nurse Practitioner Family; Visit Provider Surgery
PROC: 0DJD8ZZ Inspection of Lower Intestinal Tract, Via Natural or Artificial Opening Endoscopic (ICD-10-PCS; CPT 45378; principal; 2023-06-18 07:30)
DX: Z12.11 Encounter for screening for malignant neoplasm of colon (principal); K63.5 Polyp of colon; Z86.010 Personal history of colon polyps
CPT/HCPCS: 45380; 88305

== ENCOUNTER → 2023-09-17 10:31 | Outpatient (BNVA) | payer MEDICARE, SELFPAY | PROVIDERS: PCP Nurse Practitioner Family; Visit Provider Internal Medicine Interventional Cardiology | DX: I10 Essential (primary) hypertension (principal); I25.10 Atherosclerotic heart disease of native coronary artery without angina pectoris; Z95.5 Presence of coronary angioplasty implant and graft; E78.5 Hyperlipidemia, unspecified | CPT/HCPCS: 99213 ==

== ENCOUNTER 2024-03-09 13:27 | Outpatient (REF) | payer MEDICARE, SELFPAY | END 2024-03-09 13:28 | disposition home or self-care (01) | LOC: LBN 13:27 | PROVIDERS: PCP Nurse Practitioner Family; Visit Provider Physician Assistant | DX: N39.0 Urinary tract infection, site not specified (principal) | CPT/HCPCS: 87077; 87086; 87186 ==

== ENCOUNTER 2024-04-03 03:48 | Outpatient (CLI) | payer MEDICARE, SELFPAY ==
[2024-04-03 12:32] LABS: Hemoglobin A1C 5.7 % (<5.7)
[2024-04-03 12:39] LABS: BUN 19 mg/dL (7-18); CREATININE 0.7 mg/dL (0.55-1.02); Calcium 8.6 mg/dL (8.5-10.1); Calculated LDL 82 mg/dL (<100); Chloride 107 mmol/L (98-107); Cholesterol 147 mg/dL (<200); Estimated GFR 90.14 (mL/min/1.73m2); Glucose 105 mg/dL (74-106); HDL Cholesterol 43 mg/dL (40-60); Potassium 4.4 mmol/L (3.5-5.1); Sodium 142 mmol/L (136-145); TSH (W/Ref FT4) 4.84 uIU/mL (0.36-3.74); Triglyceride 114 mg/dL (<150)
[2024-04-03 13:10] LABS: FREE T4 0.98 ng/dL (0.76-1.46)
[2024-04-03 22:38] LABS: Lab Add On Test DONE
[2024-04-04 10:16] LABS: Hepatitis C Ab w Rflx HCV PCR Negative (Negative)
[2024-04-04 20:25] LABS: HBs Antibody, Quant <3.1 mIU/mL (See Note); Hep B Surface Ab Negative (See Note); Hepatitis B Core Antibody Negative (Negative); Hepatitis B Surface Antigen Negative (Negative)
[2024-04-04 20:27] LABS: HIV-1/2 Ag & Ab Screen Negative (Negative)
== END 2024-04-03 03:49 | disposition home or self-care (01) ==
LOC: LOS 03:48
PROVIDERS: PCP Nurse Practitioner Family; Visit Provider Nurse Practitioner Family
DX: Z11.59 Encounter for screening for other viral diseases (principal); Z00.00 Encounter for general adult medical examination without abnormal findings; I25.10 Atherosclerotic heart disease of native coronary artery without angina pectoris; I10 Essential (primary) hypertension; R73.03 Prediabetes
CPT/HCPCS: 36415; 80048; 80061; 86704; 86706; 86803; 87340; 87389; 83036; 84439; 84443

== ENCOUNTER → 2024-04-06 01:40 | Outpatient (CLI) | payer MEDICARE, SELFPAY ==
--- NOTE | 2024-04-06 07:15 | DI.RAD_ITS ---
Exam(s) XR CHEST 2V PA LATERAL EXAM: XR CHEST 2V PA LATERAL CLINICAL HISTORY: cough,r05.9. TECHNIQUE: 2D digital imaging was performed. COMPARISON: CR XR CHEST 2V PA LATERAL from 05/26/2018 FINDINGS: 2 views: Heart size is normal. The mediastinum is not widened. Lungs are clear. No infiltrates nor pleural effusions. IMPRESSION: No acute pulmonary findings. DATA REPOSITORY: RADIATION DOSE DELIVERED:
== END ==
PROVIDERS: PCP Nurse Practitioner Family; Visit Provider Nurse Practitioner Family
DX: Z12.31 Encounter for screening mammogram for malignant neoplasm of breast (principal); R05.8 Other specified cough
CPT/HCPCS: 77063; 77067; 71046

== ENCOUNTER → 2024-09-15 10:36 | Outpatient (BNVA) | payer MEDICARE, SELFPAY | PROVIDERS: PCP Nurse Practitioner Family; Visit Provider Internal Medicine Cardiovascular Disease | DX: I10 Essential (primary) hypertension (principal); I25.10 Atherosclerotic heart disease of native coronary artery without angina pectoris; E78.5 Hyperlipidemia, unspecified | CPT/HCPCS: 99213 ==

== ENCOUNTER 2024-10-06 21:28 | Outpatient (REF) | payer MEDICARE, SELFPAY ==
[2024-10-06 20:56] LABS: Clarity Clear (Clear); Specific Gravity 1.023 (1.005-1.025)
[2024-10-06 21:05] LABS: Bacteria Few HPF (Negative); C & S Indicated? Yes; Crystals Negative HPF (Negative); Epithelial Cells Rare HPF (Negative); Mucus Moderate (Negative); RBC >50 HPF (0-2)
== END 2024-10-06 21:29 | disposition home or self-care (01) ==
LOC: LBN 21:28
PROVIDERS: PCP Nurse Practitioner Family; Visit Provider Nurse Practitioner Family
DX: Z20.828 Contact with and (suspected) exposure to other viral communicable diseases; J06.9 Acute upper respiratory infection, unspecified; N30.01 Acute cystitis with hematuria; I10 Essential (primary) hypertension
CPT/HCPCS: 87077; 81003; 81015; 87086; 87186

== ENCOUNTER 2024-11-02 18:03 | Outpatient (REF) | payer MEDICARE, SELFPAY | END 2024-11-02 18:04 | disposition home or self-care (01) | LOC: LBN 18:03 | PROVIDERS: PCP Nurse Practitioner Family; Visit Provider Physician Assistant | DX: N39.0 Urinary tract infection, site not specified (principal) | CPT/HCPCS: 87086 ==

== ENCOUNTER 2024-11-02 20:26 | Emergency (ER) | payer MEDICARE, SELFPAY ==
[2024-11-02] VITALS (10 sets, daily range): BP systolic 167–203; BP diastolic 88–100; PULSE 64–86; RESP 20; TEMP 36.8; O2SAT 91–95
--- NOTE | 2024-11-02 20:46 | ED.GENADUL_ITS ---
Discharge Plan Disposition Patient Disposition: Home Condition: Stable Discharge Details Clinical Impression: Allergic reaction due to antibacterial drug Primary Care Provider: Judith Jerome ED Provider: Olivia Hobson Home Meds and New Rx's Prescriptions: New fosfomycin tromethamine 3 gram packet 3 g PO ONCE Qty: 1 0RF Rx Instructions: Please take additional dose if no improvement in 2 days Continued chlorpheniramine maleate 4 mg tablet 4 mg PO DAILY PRN PRN (DME) rectal, vaginal applicator tip Misc See Rx Instructions .Route Qty: 48 0RF Rx Instructions: Use with estradiol cream phenazopyridine [Pyridium] 200 mg tablet 200 mg PO TID PRN (Reason: pain) Qty: 6 0RF estradiol 0.01 % (0.1 mg/gram) cream 0.5 g vaginal .Twice a week Qty: 42.5 4RF acyclovir 400 mg tablet 400 mg PO BID Qty: 180 3RF lisinopril 40 mg tablet 40 mg PO DAILY Qty: 90 3RF aspirin [Ecotrin Low Strength] 81 MG tablet,delayed release (DR/EC) 81 mg PO DAILY Patient Comments: 06/24/17 Has not been taking. ts cholecalciferol (vitamin D3) 2,000 unit capsule 2,000 unit PO DAILY Qty: 90 4RF Rx Instructions: Start after 8wks of 50,000 IU weekly nitroglycerin 0.4 mg tablet, sublingual 0.4 mg sublingual Q5-15M PRN (Reason: chest pain) Qty: 25 3RF Rx Instructions: 1 tablet every 5 minutes x 3 doses if needed for chest pain. Seek emergency services if not improving after first dose atorvastatin [Lipitor] 40 mg tablet 40 mg PO DAILY Qty: 90 3RF metoprolol succinate 100 mg tablet extended release 24 hr 100 mg PO DAILY Qty: 90 3RF Discontinued nitrofurantoin monohyd/m-cryst [Macrobid] 100 mg capsule 100 mg PO Q12H 5 Days Qty: 10 0RF Rx Instructions: must administer with a meal/food Discharge Instructions Instructions: Urinary Tract Infection, Adult ED, Allergic Reaction ED Additional Instructions: Please stop the nitrofurantoin. You were given an antibiotic called fosfomycin today in the ER. If you do not have improvement in your symptoms within 48 hours please take 1 more additional dose. You may continue to take 1-2 Benadryl every 6-8 hours as needed for itching. You may also take Claritin or Zyrtec or similar as directed during the daytime for less sedation. Please return to the ER for any worsening hives itching trouble breathing mouth swelling or concerns. Follow up with primary care provider in 3-5 days. Return to ED sooner if any worsening or concerns. Referrals: Judith Jerome NP [Primary Care Provider] - 3 days HPI General Mode of arrival: ambulatory . Date/Time Provider Initiated Documentation: 11/02/24 20:27 . Limitations to Documentation: no limitations . Information obtained by: patient, RN notes reviewed and old records reviewed . HPI Narrative: 73-year-old female presents to the ER with a chief complaint of hand and feet itching, lip swelling and feels as if her throat was tight after being pre scribed Macrobid at [facility] earlier today for UTI. Patient reports that she has taken this medication before in the past. She does have multiple medication allergies to sulfa Cipro penicillins and oxycodone and hydrochlorothiazide. She is speaking in full sentences lungs are clear to auscultation bilaterally on initial presentation. She is hypertensive. Related Data Home Medications ?Medication ?Instructions ?Recorded ?Confirmed aspirin 81 mg tablet,delayed 81 mg PO DAILY 03/16/13 11/02/24 release (Ecotrin Low Strength) chlorpheniramine maleate 4 mg 4 mg PO DAILY PRN PRN 07/14/18 11/02/24 tablet cholecalciferol (vitamin D3) 50 2,000 unit PO DAILY #90 caps 10/10/18 11/02/24 mcg (2,000 unit) capsule nitroglycerin 0.4 mg sublingual 0.4 mg sublingual Q5-15M PRN chest 08/11/23 11/02/24 tablet pain #25 tabs rectal, vaginal applicator tip #48 ea 01/06/24 11/02/24 atorvastatin 40 mg tablet (Lipitor) 40 mg PO DAILY #90 tabs 01/12/24 11/02/24 metoprolol succinate 100 mg 100 mg PO DAILY #90 tabs 01/12/24 11/02/24 tablet,extended release 24 hr acyclovir 400 mg tablet 400 mg PO BID #180 tabs 02/04/24 11/02/24 estradiol 0.01% (0.1 mg/gram) 0.5 g vaginal .Twice a week #42.5 02/04/24 11/02/24 vaginal cream grams lisinopril 40 mg tablet 40 mg PO DAILY #90 tabs 02/04/24 11/02/24 phenazopyridine 200 mg tablet 200 mg PO TID PRN pain 6 doses #6 03/09/24 11/02/24 (Pyridium) tabs fosfomycin tromethamine 3 gram 3 g PO ONCE UTI #1 ea 11/02/24 oral packet Previous Rx's ?Medication ?Instructions ?Recorded cholecalciferol (vitamin D3) 50 2,000 unit PO DAILY #90 caps 10/10/18 mcg (2,000 unit) capsule nitroglycerin 0.4 mg sublingual 0.4 mg sublingual Q5-15M PRN chest 08/11/23 tablet pain #25 tabs rectal, vaginal applicator tip #48 ea 01/06/24 atorvastatin 40 mg tablet (Lipitor) 40 mg PO DAILY #90 tabs 01/12/24 metoprolol succinate 100 mg 100 mg PO DAILY #90 tabs 01/12/24 tablet,extended release 24 hr acyclovir 400 mg tablet 400 mg PO BID #180 tabs 02/04/24 estradiol 0.01% (0.1 mg/gram) 0.5 g vaginal .Twice a week #42.5 02/04/24 vaginal cream grams lisinopril 40 mg tablet 40 mg PO DAILY #90 tabs 02/04/24 phenazopyridine 200 mg tablet 200 mg PO TID PRN pain 6 doses #6 03/09/24 (Pyridium) tabs fosfomycin tromethamine 3 gram 3 g PO ONCE UTI #1 ea 11/02/24 oral packet Allergies Allergy/AdvReac Type Severity Reaction Status Date / Time Sulfa (Sulfonamide Allergy Severe Skin Rash Verified 11/02/24 20:31 Antibiotics) ciprofloxacin (From Cipro) Allergy Mild Skin Rash Verified 11/02/24 20:31 Penicillins Allergy Mild Skin Rash Verified 11/02/24 20:31 sulfamethoxazole (From Allergy Skin Rash Verified 11/02/24 20:31 Septra) trimethoprim (From Septra) Allergy Skin Rash Verified 11/02/24 20:31 hydrochlorothiazide AdvReac Intermediate TINGLING, Verified 11/02/24 20:31 SWOLLEN LIPS oxycodone AdvReac GI symptoms Verified 11/02/24 20:31 General Stated Complaint: Allergic CARON: 3 Review of Systems All systems reviewed & are unremarkable except as noted in HPI and below ENT Ears, Nose, Mouth, and Throat: Reports as per HPI, Reports lip swelling and Reports throat swelling Integumentary/Breasts Skin/Breast: Reports pruritus, Reports erythema, Reports rash and Reports skin swelling Allergic/Immunologic Allergic/Immunologic: Reports lip swelling and Reports throat swelling Exam Narrative Exam Narrative: Constitutional: Alert and oriented x3. Appears stated age. Normal body habitus. Head: Normocephalic, no trauma. Eyes: Pupils PERRL, Red reflex noted, EOM's intact. Eyelids symmetrical without lesions, discharge, or swelling. ENT: Bilateral TM's WNL, External ear normal to inspection, no mastoid TTP, swelling, or erythema, Nasal turbinates WNL, no nasal discharge. Normal dentition, Posterior pharynx WNL, no exudate. Chest: RRR, Normal S1, S2, distal pulses intact. Resp: Lungs clear to auscultation bilaterally, no wheezes, rales, or rhonchi. No stridor. Abdomen: Soft, non-distended, Normoactive bowel sounds all 4 quads. Musculoskeletal: Normal gait, Moves all 4 extremities without difficulty. Skin: Erythemic hands, pruritic feet. No urinary Caria or hives, she does appear to have slightly swollen lips and swelling underneath her eyes. Speaking in a clear voice. Capillary refill less than 2 sec. Neurologic: Cranial nerves II-XII intact. Alert and oriented x 3. Motor: No deficits noted. Sensory: Intact bilaterally all 4 extremities. Hematologic/Lymphatic: No ecchymosis, no lymphadenopathy. Course Vital Signs Vital signs: Vital Signs Temperature 36.8 C 11/02/24 20:32 Pulse 85 11/02/24 20:32 Respiratory Rate 20 11/02/24 20:32 Blood Pressure 203/100 H 11/02/24 20:32 Pulse Oximetry 94 11/02/24 20:32 Temperature 36.8 C 11/02/24 20:32 Temperature Source Tympanic 11/02/24 20:32 Pulse 85 11/02/24 20:32 Respiratory Rate 20 11/02/24 20:32 Blood Pressure 203/100 H 11/02/24 20:32 Pulse Oximetry 94 11/02/24 20:32 Oxygen Delivery Method Room Air 11/02/24 20:32 Oxygen Flow Rate 0 11/02/24 20:32 Pain Level 0 11/02/24 20:32 Medical Decision Making 73-year-old female presents to the ER with a chief complaint of hand and feet itching, lip swelling and feels as if her throat was tight after being prescribed Macrobid at [facility] earlier today for UTI. Patient reports that she has taken this medication before in the past. She does have multiple medication allergies to sulfa Cipro penicillins and oxycodone and hydrochlorothiazide. She is speaking in full sentences lungs are clear to auscultation bilaterally on initial presentation. She is hypertensive. IV ordered, 125 of Solu-Medrol, 25 of Benadryl and 20 of Pepcid IV. 2156: Patient reevaluation, she reports she feels much better. The redness has decreased. Discussed with her at length options for urinary tract infection treatment. She is allergic to penicillin. Discussed cephalexin versus fosfomycin. We will give fosfomycin 1 dose here and wait proximately 1520 minutes to observe for reaction. Patient is in agreement with the plan. This text was generated using [employer] system, please disregard any oddities of phrase or misspellings. 2250: On patient reevaluation she has no complaints of itching, hives after the antibiotic administration approximately 25 minutes ago. Plan is to discharge home. Medical Records Medical records reviewed: Yes I reviewed the patient's medical records. Lab Data Lab results reviewed: Yes I reviewed the patient's lab results. Quality:SDOH Health Related Social Needs: No Data to Display PFSH All Active Problems (Updated 11/02/24 @ 22:15 by Olivia Hobson NP) Allergic reaction due to antibacterial drug (Acute) ASCVD (arteriosclerotic cardiovascular disease) (Chronic) S/p stents x 4 to LAD 05/29/18 at [facility] [place] for unstable angina Hyperlipidemia (Chronic) Essential hypertension (Chronic) Osteoporosis (Chronic) Dexa 09/06; declines osteoporosis meds History of melanoma (Chronic) Prediabetes (Chronic) Allergic rhinitis (Chronic) Recurrent cystitis (Chronic) Managed with topical estrogen cream Medical History Tubular adenoma of colon 2014 and 2022 colonoscopy 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 s/p excision at [facility] [place] Unstable angina pectoris due to coronary arteriosclerosis (~05/2018) S/p cardiac cath and stenting at [facility] 05/28/18 Surgical History S/P colonoscopy (06/18/23) S/P ORIF (open reduction internal fixation) fracture (~2021) Left tibial plateau fracture S/P right breast biopsy (~1988) S/P cardiac catheterization (~05/29/18) Family History Mother , at 84 of metastatic lung cancer Lung cancer Hypertension Father , at 70 of [place] Heart disease Hyperlipidemia Renal failure Myocardial infarction Prostate cancer Type 2 diabetes mellitus Hypertension Brother No problems noted. Brother No problems noted. Daughter No problems noted. Maternal Grandfather , at 101 Brain aneurysm Maternal Grandmother No problems noted. Paternal Grandfather , age 74 Aneurysm Paternal Grandmother No problems noted. 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 Pets and animals: Yes Pets and animals: cat(s) and dog(s) Sexually active: Yes Do you think of yourself as: straight/heterosexual Current gender identity: female What is your relationship status?: How often do you talk on the phone with friends or family?: once per week How often do you get together with friends or relatives?: decline to answer How often do you attend evangelical or mandaen services?: decline to answer Do you belong to any clubs or organized social groups?: no Panel score (0-1 are the most socially isolated patients): 1 What type of physical activity do you participate in: none Frequency: does not exercise Annita/Spiritism: No preference Special annita needs: No Seatbelt use: always Helmet use: No Drive intox or ride w/intox local intermodal truck driver: No Do you feel safe at home: Yes Do you feel safe in your relationship?: Yes Victim of physical abuse: No Victim of emotional abuse: No Victim of sexual abuse: No Would you like helpful sources: No History History 3 Para Hx # Term Pregnancies Multiple births Hx # Pregnancies Ectopic pregnancies AB induced 1 Hx Number of Living Children 1 AB spontaneous 1
[2024-11-02] MEDS: methylPREDNISolone SUCC 125 MG VIAL IVP (21:13)
[2024-11-02] MEDS: Famotidine 20 MG/2 ML VIAL IVP (21:13)
[2024-11-02] MEDS: diphenhydrAMINE 50 MG/ML VIAL 25 MG IVP (21:14)
[2024-11-02] MEDS: Fosfomycin Tromethamine 3 GM PACKET PO (22:27)
== END 2024-11-02 23:03 | disposition home or self-care (01) ==
PROVIDERS: Emergency Provider Registered Nurse Emergency; PCP Nurse Practitioner Family
DX: L50.0 Allergic urticaria (principal); T37.8X5A Adverse effect of other specified systemic anti-infectives and antiparasitics, initial encounter; I10 Essential (primary) hypertension; E78.5 Hyperlipidemia, unspecified; Z79.82 Long term (current) use of aspirin
CPT/HCPCS: 96374; 96375; 99284; 99283; J1200; J2919; J3490

== ENCOUNTER 2024-11-08 21:14 | Outpatient (REF) | payer MEDICARE, SELFPAY ==
[2024-11-08 21:18] LABS: Bilirubin Negative (Negative); Blood Moderate (Negative); Clarity Turbid (Clear); Glucose Negative (Negative); Ketones Negative (Negative); Leukocyte Esterase Negative (Negative); Nitrite Negative (Negative); Specific Gravity >= 1.030 (1.005-1.025); Urobilinogen 0.2 mg/dL (Up to 0.2)
[2024-11-08 21:29] LABS: Bacteria Negative HPF (Negative); C & S Indicated? No; Crystals Many Amorphous HPF (Negative); Epithelial Cells Negative HPF (Negative); Mucus Negative (Negative); WBC 0-2 HPF (0-5)
== END 2024-11-08 21:15 | disposition home or self-care (01) ==
LOC: LBN 21:14
PROVIDERS: PCP Nurse Practitioner Family; Visit Provider Nurse Practitioner Family
DX: N30.90 Cystitis, unspecified without hematuria (principal); T36.95XA Adverse effect of unspecified systemic antibiotic, initial encounter
CPT/HCPCS: 81003; 81015

== ENCOUNTER 2024-12-08 00:13 | Outpatient (CLI) | payer MEDICARE, SELFPAY ==
--- NOTE | 2024-12-08 06:00 | DI.US_ITS ---
Exam(s) US RENAL EXAM: US RENAL CLINICAL HISTORY: hematuria,r31.29. TECHNIQUE: Fernandes scale, color and spectral Doppler were used. COMPARISON: No exams were available for comparison FINDINGS: Right kidney: 10.3cm Echogenicity: Normal Hydronephrosis: No Cyst or mass: No Nephrolithiasis: No Left kidney: 11.1cm Echogenicity: Normal Hydronephrosis: No Cyst or mass: No Nephrolithiasis: No Bladder:Normal. No visible stone or mass. Right ureteral jet not visualized. Prevoid vol:106 cc Postvoid vol:46 cc IMPRESSION: Mildly elevated postvoid residual. No visible nephrolithiasis. No evidence of hydronephrosis. DATA REPOSITORY:
== END 2024-12-08 00:33 ==
LOC: DI 00:13
PROVIDERS: PCP Nurse Practitioner Family; Visit Provider Nurse Practitioner Family
DX: R31.29 Other microscopic hematuria (principal)
CPT/HCPCS: 76770

== ENCOUNTER 2024-12-11 17:16 | Outpatient (REF) | payer MEDICARE, SELFPAY | END 2024-12-11 17:17 | disposition home or self-care (01) | LOC: LBN 17:16 | PROVIDERS: PCP Nurse Practitioner Family; Visit Provider Physician Assistant | DX: N39.0 Urinary tract infection, site not specified (principal) | CPT/HCPCS: 87077; 87086; 87186 ==

== ENCOUNTER 2025-02-02 01:36 | Outpatient (CLI) | payer MEDICARE, SELFPAY ==
[2025-02-05 13:50] LABS: Measles IgG Antibody Positive (See Note)
== END 2025-02-02 01:37 | disposition home or self-care (01) ==
PROVIDERS: PCP Nurse Practitioner Family; Visit Provider Nurse Practitioner Family
DX: Z11.59 Encounter for screening for other viral diseases (principal); Z00.00 Encounter for general adult medical examination without abnormal findings
CPT/HCPCS: 36415; 86765

== ENCOUNTER 2025-02-09 20:24 | Outpatient (REF) | payer MEDICARE, SELFPAY | END 2025-02-09 20:25 | disposition home or self-care (01) | LOC: LBN 20:24 | PROVIDERS: PCP Nurse Practitioner Family; Visit Provider Nurse Practitioner Family | DX: N39.0 Urinary tract infection, site not specified (principal) | CPT/HCPCS: 87077; 87086; 87186 ==

== ENCOUNTER 2025-02-20 09:52 | Outpatient (CLI) | payer MEDICARE, SELFPAY ==
[2025-02-20 12:13] LABS: Abs Immature Grans 0.09 10^3/uL (0.0-0.06); Absolute Basophil Count 0.06 10^3/uL (0.0-0.2); Absolute Eosinophil Count 0.13 10^3/uL (0.0-0.7); Absolute Lymphocyte Count 2.08 10^3/uL (1.2-3.4); Absolute Monocyte Count 0.75 10^3/uL (0.1-0.8); Absolute Neutrophil Count 5.72 10^3/uL (1.2-6.7); Basophils % 0.7 %; Eosinophils % 1.5 %; HCT 41.1 % (36.0-46.0); HGB 13.7 g/dL (11.2-15.7); Lymphocytes % 23.6 %; MCHC 33.3 % (32.0-36.0); MCV 99 fL (80-95); Monocytes % 8.5 %; Neutrophils % 64.7 %; Platelet Count 434 10^3/uL (130-400); RBC 4.15 10^6/uL (3.93-5.22); RDW 12.5 % (11.7-14.6); RDW-SD 45.5 fL; WBC 8.83 10^3/uL (4.4-10.8)
[2025-02-20 12:28] LABS: ALT 28 U/L (14-59); AST 17 U/L (15-37); Albumin 3.4 g/dL (3.4-5.0); Alkaline Phosphatase 104 U/L (46-116); Anion Gap 6.9 mmol/L (3-11); BUN 25 mg/dL (7-18); Bilirubin, Total 0.4 mg/dL (0.2-1.0); CO2 28.1 mmol/L (21.0-32.0); CREATININE 0.6 mg/dL (0.55-1.02); Calcium 9.7 mg/dL (8.5-10.1); Chloride 102 mmol/L (98-107); Estimated GFR 92.97 (mL/min/1.73m2); Glucose 120 mg/dL (74-106); Potassium 4.6 mmol/L (3.5-5.1); Sodium 137 mmol/L (136-145)
== END 2025-02-20 09:53 | disposition home or self-care (01) ==
PROVIDERS: PCP Nurse Practitioner Family; Referring Provider Family Medicine; Visit Provider Family Medicine
DX: D64.9 Anemia, unspecified (principal); R10.9 Unspecified abdominal pain
CPT/HCPCS: 36415; 80053; 85025

== ENCOUNTER 2025-02-20 16:09 | Outpatient (REF) | payer MEDICARE, SELFPAY | END 2025-02-20 16:10 | disposition home or self-care (01) | LOC: LBN 16:09 | PROVIDERS: PCP Nurse Practitioner Family; Visit Provider Family Medicine | DX: N39.0 Urinary tract infection, site not specified (principal) | CPT/HCPCS: 87077; 87086; 87186 ==

== ENCOUNTER 2025-03-08 09:11 | Outpatient (REF) | payer MEDICARE, SELFPAY | END 2025-03-08 09:12 | disposition home or self-care (01) | LOC: NCHCN 09:11 | PROVIDERS: PCP Nurse Practitioner Family; Visit Provider Physician Assistant | DX: N39.0 Urinary tract infection, site not specified (principal); B96.1 Klebsiella pneumoniae [K. pneumoniae] as the cause of diseases classified elsewhere | CPT/HCPCS: 87077; 87086; 87186 ==

== ENCOUNTER 2025-03-15 17:26 | Outpatient (REF) | payer MEDICARE, SELFPAY ==
[2025-03-15 20:50] LABS: Bilirubin Negative (Negative); Blood Large (Negative); Clarity Sl Cloudy (Clear); Glucose Negative (Negative); Ketones Negative (Negative); Leukocyte Esterase Moderate (Negative); Nitrite Positive (Negative); Specific Gravity 1.015 (1.005-1.025); Urobilinogen 0.2 mg/dL (Up to 0.2)
[2025-03-15 21:10] LABS: Bacteria Many HPF (Negative); C & S Indicated? Yes; Casts Negative LPF (Negative); Crystals Negative HPF (Negative); Epithelial Cells Few HPF (Negative); Mucus Negative (Negative); RBC >50 HPF (0-2); WBC >50 HPF (0-5)
== END 2025-03-15 17:27 | disposition home or self-care (01) ==
LOC: LBN 17:26
PROVIDERS: PCP Nurse Practitioner Family; Visit Provider Nurse Practitioner Family
DX: R39.9 Unspecified symptoms and signs involving the genitourinary system (principal); B96.1 Klebsiella pneumoniae [K. pneumoniae] as the cause of diseases classified elsewhere; R82.89 Other abnormal findings on cytological and histological examination of urine
CPT/HCPCS: 87077; 81003; 81015; 87086; 87186

== ENCOUNTER 2025-05-10 20:50 | Day surgery (SDC) | payer MEDICARE, SELFPAY ==
[2025-05-10] VITALS (8 sets, daily range): BP systolic 111–161; BP diastolic 64–74; PULSE 67–78; RESP 18; TEMP 36.6; O2SAT 95–97
--- NOTE | 2025-05-10 21:15 | DI.CT_ITS ---
Exam(s) CT ABDOMEN PELVIS W EXAM: CT ABDOMEN PELVIS W CLINICAL HISTORY: fever and lower abdominal pain. TECHNIQUE: Imaging Protocol: Axial computed tomography images with coronal and sagittal reformatted images were created and reviewed CONTRAST MATERIAL: Intravenous: Omnipaque-350 75cc Oral: None COMPARISON: No exams were available for comparison FINDINGS: VISUALIZED LUNG BASES: There is mild infiltrate inferior lingular segment of the left lung base and mild increased markings are noted in the posterior basal segment of the left lower lobe. There are no pleural effusions.. ABDOMEN: Field of view of this scan does not include the entire upper aspect of the liver. There is no ascites. LIVER: There are no focal hepatic lesions evident in the field of view.. No dilated intrahepatic ducts. GALLBLADDER/BILIARY: No obvious gallbladder pathology. CBD is not dilated. PANCREAS: There is a 6 millimeters cyst in the anterior aspect of the pancreas at the junction of the body and tail. No other pancreatic findings and the pancreatic duct is not dilated. SPLEEN: Spleen is not enlarged. No obvious intrasplenic lesions. Splenic and portal veins are patent. ADRENALS: There are no significant adrenal masses. KIDNEYS:Right kidney unremarkable. There is hydronephrosis on the right side and dilatation of the right ureter. There is an obstructing calculus in the mid right ureter which measures 7 by 4 mm. Ureter below this level is not dilated and there are no additional calculi at the UVJ nor within the urinary bladder lumen. There is ipsilateral streaking around the hydronephrotic right kidney. There are no additional calculi seen within the right kidney. ABDOMINAL AORTA: Calcified but not enlarged. Iliac arteries are also calcified but not enlarged. LYMPH NODES:There is no retroperitoneal nor paraaortic adenopathy. ABDOMINAL WALL: Small fat only containing umbilical hernia. No inguinal hernias. GI: There is no evidence of bowel obstruction, free air, nor abscess. Prominent amount of fecal material in the colon. PELVIS: GI: No evidence of appendicitis.No evidence of sigmoid diverticulitis. LYMPH NODES: There is no intrapelvic nor inguinal adenopathy. REPRODUCTIVE: Uterus and adnexal regions unremarkable. No free fluid in the pelvis. URINARY BLADDER: Mild uniform thickening of the urinary bladder wall. Cystocele noted. No masses nor radiopaque calculi in the bladder. No clots in the bladder lumen. OSSEOUS: No fractures and no significant osseous lesions. Chronic disc space narrowing L4-5. No listhesis. IMPRESSION: 1. The main acute finding here is an obstructing 7 x 4 mm calculus in the mid right ureter with hydroureter and hydronephrosis above this level. There are no additional calculi within the ipsilateral right kidney. No findings in the left kidney. 2. There is mild uniform thickening of the urinary bladder wall. Also cystocele. There are no calculi evident in the urinary bladder nor intraluminal clots. 3. There is a 6 millimeter cystic structure at the junction of the body and tail the pancreas. This can be further studied with pancreatic protocol MRI. Preliminary virtual Radiology report was reviewed. RADIATION DOSE DELIVERED: 373.72mGy.cm Total DLP DATA REPOSITORY: All CT scans at this facility are submitted to the National Radiology Data Registry (NRDR) Dose Index Registry (DIR) with the [employer] (ACR). RADIATION OPTIMIZATION: All CT scans at this facility use at least one of these dose optimization techniques: automated exposure control; mA and/or kV adjustment per patient size (includes targeted exams where dose is matched to clinical indication); or iterative reconstruction.
[2025-05-10 21:32] LABS: Glucose 100 mg/dL (Negative)
[2025-05-10] MEDS: Normal Saline 1,000 ML 1000 ML IV (21:33)
[2025-05-10 21:35] LABS: C & S Indicated? Yes; WBC >50 HPF (0-5)
[2025-05-10 21:36] LABS: Abs Immature Grans 0.08 10^3/uL (0.0-0.06); HCT 36.1 % (36.0-46.0); HGB 12.0 g/dL (11.2-15.7); Immature Grans % 0.5 %; MCH 31.7 pg (27.0-33.0); MCHC 33.2 % (32.0-36.0); MCV 96 fL (80-95); MPV 10.1 fL (8.0-11.0); Platelet Count 236 10^3/uL (130-400); RBC 3.78 10^6/uL (3.93-5.22); RDW 14.0 % (11.7-14.6); RDW-SD 49.1 fL; WBC 14.58 10^3/uL (4.4-10.8)
[2025-05-10] MEDS: Ketorolac 15 MG/ML VIAL IVP (21:43)
[2025-05-10] MEDS: cefTRIAXone 1 GM/50 ML BAG IVPB (21:44)
[2025-05-10 22:00] LABS: ALT 35 U/L (14-59); AST 13 U/L (15-37); Albumin 3.2 g/dL (3.4-5.0); Alkaline Phosphatase 70 U/L (46-116); Anion Gap 11.1 mmol/L (3-11); BUN 19 mg/dL (7-18); Bilirubin, Total 0.8 mg/dL (0.2-1.0); CO2 21.9 mmol/L (21.0-32.0); Calcium 8.5 mg/dL (8.5-10.1); Chloride 101 mmol/L (98-107); Estimated GFR 58.39 (mL/min/1.73m2); Glucose 132 mg/dL (74-106); Potassium 4.0 mmol/L (3.5-5.1); Sodium 134 mmol/L (136-145); Total Protein 6.8 g/dL (6.4-8.2)
[2025-05-10] MEDS: Omnipaque 350 MG/ML 100 ML BTL IJ (22:15)
[2025-05-10] MEDS: Normal Saline - Diluent 50 ML VIAL IJ (22:15)
[2025-05-10] MEDS: Normal Saline Flush 10 ML SYR IVP (22:15)
--- NOTE | 2025-05-10 22:32 | ED.GENADUL_ITS ---
Discharge Plan Discharge Details Chief Complaint: Urinary Clinical Impression: Urinary tract obstruction due to kidney stone, Urinary tract infection Primary Care Provider: Judith Jerome ED Provider: Dylan Daniels Home Meds and New Rx's Prescriptions: No Action chlorpheniramine maleate 4 mg tablet 4 mg PO DAILY PRN PRN (DME) rectal, vaginal applicator tip Misc See Rx Instructions .Route Qty: 48 0RF Rx Instructions: Use with estradiol cream epinephrine [Auvi-Q] 0.3 mg/0.3 mL auto-injector 0.3 mg IM Q5-15M PRN (Reason: hypersensitivity reaction) Qty: 2 0RF Rx Instructions: do not exceed 3 doses per episode aspirin [Ecotrin Low Strength] 81 MG tablet,delayed release (DR/EC) 81 mg PO DAILY Patient Comments: 06/24/17 Has not been taking. ts cholecalciferol (vitamin D3) 2,000 unit capsule 2,000 unit PO DAILY Qty: 90 4RF Rx Instructions: Start after 8wks of 50,000 IU weekly nitroglycerin 0.4 mg tablet, sublingual 0.4 mg sublingual Q5-15M PRN (Reason: chest pain) Qty: 25 3RF Rx Instructions: 1 tablet every 5 minutes x 3 doses if needed for chest pain. Seek emergency services if not improving after first dose lisinopril 40 mg tablet 40 mg PO DAILY Qty: 90 3RF atorvastatin [Lipitor] 40 mg tablet 40 mg PO DAILY Qty: 90 3RF metoprolol succinate 100 mg tablet extended release 24 hr 100 mg PO DAILY Qty: 90 3RF acyclovir 400 mg tablet 400 mg PO BID Qty: 180 3RF estradiol 10 mcg tablet VAGINAL Patient Comments: INSERT ONE INSERT VAGINALLY ONCE DAILY FOR TWO WEEKS, FOLLOWED BY ONE INSERT TWICE WEEKLY (EVERY 3 TO 4 DAYS)S HPI General Date/Time Provider Initiated Documentation: 05/10/25 20:55 . HPI Narrative: MDM/Narrative: 74-year-old female presents as above. Vital signs within normal limits however patient took her temperature at home which was 102.3 and took some Tylenol. Exam shows a well-appearing lady who is clammy to touch with suprapubic tenderness and no significant CVA tenderness. Given history of prior kidney stones, as well as recurrent UTIs will obtain screening labs to include urinalysis, CBC, CMP and lactic acid to assess for signs of sepsis of organ damage, and CT abdomen pelvis to assess for signs of urinary obstruction as well as other complications of UTI to include perinephric abscess, kidney abscess. 23:[address] imaging shows obstructive right-sided nephrolithiasis in the proximal ureter measuring 6 x 4 mm. Labs are consistent with urinary tract infection with nitrate positive urine, significant leukocytosis. Lactic happily is normal. Patient was treated with ceftriaxone 1 g IV, as well as IV Toradol. On reassessment she is feeling well, results reviewed and she is agreeable with plan for likely transfer for urologic evaluation. Case discussed with [facility] who will begin contacting their urology team and bed search. 12:06 Patient care signed out to Dr. Solis pending urology recommendations and likely transfer Disposition: Pending HPI: The patient is a 74-year-old female with a history of recurrent urinary tract infections (UTIs) presenting with urinary complaints. The patient reports experiencing recurrent UTIs over the past year, with temporary relief achieved through medication in March 2025 and April 2025, followed by recurrence of the infection. She describes severe dysuria, painful bladder spasms, and bladder pain. She has been referred to a urologist, with an appointment scheduled for September 2025. The patient consulted Dr. Marie in [facility], who prescribed fosfomycin, which was ineffective; a second round of the medication was administered yesterday. A sonogram of the kidneys and bladder was performed a few months ago due to the presence of kidney stones. Today, the patient experienced chills at 1500 hours, followed by pyrexia of 102.9?F after a 3-hour nap. Her daughter suggested a hospital visit due to potential renal involvement. The patient reports mild renal pain that subsided after 2 weeks. She denies vomiting, coughing, sore throat, or rhinorrhea. She has had diarrhea for the past 3 days, which she attributes to medication, with no hematochezia. No new rashes have appeared since the onset of fever. She took 2 tablets of acetaminophen, resulting in a reduction of her temperature, although she remains clammy. PAST SURGICAL HISTORY: The patient has a history of cardiac stent placement. ROS: Negative besides as mentioned above Exam: Vital signs: Reviewed. General Appearance: Clammy skin. HEENT: NCAT, EOMI, not icteric. External ears normal. No rhinorrhea. Moist mucous membranes. Neck: Supple, full range of motion, no observable masses, No meningeal sign. Respiratory: No Respiratory distress. No tachypnea. Cardiovascular: RRR, no edema. Gastrointestinal: Soft, nondistended, No rebound tenderness. Mild suprapubic tenderness to palpation. Genitourinary: No tenderness upon percussion over kidneys. Back: No midline tenderness to palpation or palpable step-offs of the C/T/L spine. Skin: Clammy skin. Neurological: Alert and oriented. Psychiatric: Appropriate for situation. Labs: 05/10/25 20:56 Urine - Reflex from Ua Urine Culture - Pending Laboratory Tests Range/Units 05/10/25 05/10/25 20:56 21:31 WBC (4.4-10.8) 10^3/uL 14.58 H RBC (3.93-5.22) 10^6/uL 3.78 L Hgb (11.2-15.7) g/dL 12.0 Hct (36.0-46.0) % 36.1 MCV (80-95) fL 96 H MCH (27.0-33.0) pg 31.7 MCHC (32.0-36.0) % 33.2 RDW (11.7-14.6) % 14.0 Plt Count (130-400) 10^3/uL 236 MPV (8.0-11.0) fL 10.1 Immature Gran % % 0.5 Neutrophils % % 77.5 Lymphocytes % % 13.6 Monocytes % % 7.8 Eosinophils % % 0.3 Basophils % % 0.3 Nucleated RBC % (0.0-0.3) % 0.0 Absolute Neutrophils (1.2-6.7) 10^3/uL 11.30 H Absolute Lymphocytes (1.2-3.4) 10^3/uL 1.98 Absolute Monocytes (0.1-0.8) 10^3/uL 1.14 H Absolute Eosinophils (0.0-0.7) 10^3/uL 0.04 Absolute Basophils (0.0-0.2) 10^3/uL 0.04 VBG Lactate (<or=2.0) mmol/L 0.6 Sodium (136-145) mmol/L 134 L Potassium (3.5-5.1) mmol/L 4.0 Chloride (98-107) mmol/L 101 Carbon Dioxide (21.0-32.0) mmol/L 21.9 Anion Gap (3-11) mmol/L 11.1 H BUN (7-18) mg/dL 19 H Creatinine (0.55-1.02) mg/dL 1.0 Est GFR (CKD-EPI 2020) (mL/min/1.73m2) 58.39 Glucose (74-106) mg/dL 132 H Calcium (8.5-10.1) mg/dL 8.5 Total Bilirubin (0.2-1.0) mg/dL 0.8 AST (15-37) U/L 13 L ALT (14-59) U/L 35 Alkaline Phosphatase (46-116) U/L 70 Total Protein (6.4-8.2) g/dL 6.8 Albumin (3.4-5.0) g/dL 3.2 L Urine Color (Yellow) Yellow Urine Clarity (Clear) Sl Cloudy Urine pH (5-8) 5.5 Ur Specific [place] (1.005-1.025) 1.015 Urine Protein (Neg-Trace) mg/dL 100 H Urine Ketones (Negative) mg/dL Trace H Urine Blood (Negative) Moderate H Urine Nitrite (Negative) Positive H Urine Bilirubin (Negative) Negative Urine Urobilinogen (Up to 0.2) mg/dL 1.0 H Ur Leukocyte Esterase (Negative) Large H Urine RBC Not Applicable Urine WBC (0-5) HPF >50 H Ur Epithelial Cells Not Applicable Urine Crystals Not Applicable Urine Bacteria Not Applicable Urine Mucus Not Applicable Ur Culture Indicated? Yes Urine Glucose (Negative) mg/dL 100 H Radiology: PROCEDURE INFORMATION: Exam: CT Abdomen And Pelvis With Contrast Exam date and time: 05/10/2025 10:24 PM Age: 74 years old Clinical indication: Fever and other: Fever and lower abdominal pain TECHNIQUE: Imaging protocol: Computed tomography of the abdomen and pelvis with contrast. Contrast material: OMNIPAQUE 350; Contrast volume: 75 ml; Contrast route: INTRAVENOUS (IV); COMPARISON: US RENAL 12/08/2024 7:29 AM FINDINGS: Liver: Normal. Gallbladder and biliary ducts: Normal. Pancreas: 6 mm cystic focus within the pancreatic body (series 8, image 19). Spleen: Normal. Adrenal glands: Normal. No mass. Kidneys and ureters: Right hydronephrosis and proximal right hydroureter, with obstructive 6 x 4 mm calculus in the right mid ureter (series 8, image 56). Stomach and bowel: Moderate amount of stool throughout the colon, compatible with constipation. No obstruction. Appendix: No evidence of appendicitis. Intraperitoneal space: Unremarkable. No free air. No significant fluid collection. Vasculature: Unremarkable. No abdominal aortic aneurysm. Lymph nodes: Unremarkable. No enlarged lymph nodes. Urinary bladder: Unremarkable as visualized. Reproductive: Unremarkable as visualized. Bones/joints: Mild levoscoliosis of the lumbar spine. HARDEEP DAVIES Preliminary Radiology Report DIRECTOR GEOTHERMAL OPERATIONS (QA) DISCREPANCY? If there is a discrepancy between the preliminary and final interpretation, please notify [employer] via [email or web address]. If you do not have access to our QA portal, call our QA team at [phone] CONFIDENTIALITY STATEMENT This report is intended only for the use of the referring physician, and only in accordance with law, If you received this in error, call [phone] Page 2 of 2 Soft tissues: Small fat containing umbilical hernia, without acute complications. IMPRESSION: 1. Right hydronephrosis and proximal right hydroureter, with obstructive 6 x 4 mm calculus in the right mid ureter (series 8, image 56). 2. 6 mm cystic focus within the pancreatic body (series 8, image 19). 3. Moderate amount of stool throughout the colon, compatible with constipation. No obstruction. Thank you for allowing us to participate in the care of your patient. Dictated and Authenticated by: Colin Rocha MD 05/10/2025 10:56 PM Eastern Time ([place] & [place]) Related Data Home Medications ?Medication ?Instructions ?Recorded ?Confirmed aspirin 81 mg tablet,delayed 81 mg PO DAILY 03/16/13 0 05/10/25 release (Ecotrin Low Strength) chlorpheniramine maleate 4 mg 4 mg PO DAILY PRN PRN 05/10/25 tablet cholecalciferol (vitamin D3) 50 2,000 unit PO DAILY #9 0 caps 10/10/18 05/10/25 mcg (2,000 unit) capsule nitroglycerin 0.4 mg sublingual 0.4 mg sublingual Q5-1 5M PRN chest 08/11/23 05/10/25 tablet pain #25 tabs rectal, vaginal applicator tip #48 ea 01/06/24 5 atorvastatin 40 mg tablet (Lipitor) 40 mg PO DAILY #90 tabs 01/10/25 05/10/25 lisinopril 40 mg tablet 40 mg PO DAILY #90 tabs 12/2005/10/25 metoprolol succinate 100 mg 100 mg PO DAILY #90 tabs 0 01/10/25 05/10/25 tablet,extended release 24 hr acyclovir 400 mg tablet 400 mg PO BID #180 tabs 01/1905/10/25 epinephrine 0.3 mg/0.3 mL 0.3 mg (0.3 mL) IM Q5-15M WI N 03/15/25 05/10/25 injection, auto-injector (Auvi-Q) hypersensitivity candy ction #2 ea estradiol 10 mcg vaginal tablet mcg vaginal 05/10/25 Previous Rx's ?Medication ?Instructions ?Recorded cholecalciferol (vitamin D3) 50 2,000 unit PO DAILY #9 0 caps 10/10/18 mcg (2,000 unit) capsule nitroglycerin 0.4 mg sublingual 0.4 mg sublingual Q5-1 5M PRN chest 08/11/23 tablet pain #25 tabs rectal, vaginal applicator tip #48 ea 01/06/24 atorvastatin 40 mg tablet (Lipitor) 40 mg PO DAILY #90 tabs 01/10/25 lisinopril 40 mg tablet 40 mg PO DAILY #90 tabs 12/20 12/12 metoprolol succinate 100 mg 100 mg PO DAILY #90 tabs 0 01/10/25 tablet,extended release 24 hr acyclovir 400 mg tablet 400 mg PO BID #180 tabs 01/19 06/14 epinephrine 0.3 mg/0.3 mL 0.3 mg (0.3 mL) IM Q5-15M WI N 03/15/25 injection, auto-injector (Auvi-Q) hypersensitivity candy ction #2 ea Allergies Allergy/AdvReac Type Severity Reaction Status Date / Time Sulfa (Sulfonamide Allergy Severe Skin Rash Verified 05/10/25 21:05 Antibiotics) nitrofurantoin Allergy Intermediate angioedema, Verified 05/10/25 21:05 throat tightness, itching ciprofloxacin (From Cipro) Allergy Mild Skin Rash Verified 05/10/25 21:05 Penicillins Allergy Mild Skin Rash Verified 05/10/25 21:05 sulfamethoxazole (From Allergy Skin Rash Verified 05/10/25 21:05 Septra) trimethoprim (From Septra) Allergy Skin Rash Verified 05/10/25 21:05 hydrochlorothiazide AdvReac Intermediate [place], Verified 05/10/25 21:05 SWOLLEN LIPS oxycodone AdvReac GI symptoms Verified 05/10/25 21:05 General Stated Complaint: Urinary CARON: 3 Course Vital Signs Vital signs: Vital Signs Temperature 36.6 C 05/10/25 20:56 Pulse 78 05/10/25 20:56 Respiratory Rate 18 05/10/25 20:56 Blood Pressure 161/74 H 05/10/25 20:56 Pulse Oximetry 97 05/10/25 20:56 Temperature 36.6 C 05/10/25 21:04 Temperature Source Oral 05/10/25 21:04 Pulse 75 05/10/25 21:04 Respiratory Rate 18 05/10/25 21:04 Blood Pressure 161/74 H 05/10/25 20:56 Pulse Oximetry 96 05/10/25 21:04 Oxygen Delivery Method Room Air 05/10/25 21:04 Oxygen Flow Rate 0 05/10/25 20:56 Pain Level 7 05/10/25 21:43 Lab/Test Results Lab/Test Results: 05/10/25 20:56 Urine - Reflex from Ua Urine Culture - Pending Laboratory Tests Range/Units 05/10/25 05/10/25 20:56 21:31 WBC (4.4-10.8) 10^3/uL 14.58 H RBC (3.93-5.22) 10^6/uL 3.78 L Hgb (11.2-15.7) g/dL 12.0 Hct (36.0-46.0) % 36.1 MCV (80-95) fL 96 H MCH (27.0-33.0) pg 31.7 MCHC (32.0-36.0) % 33.2 RDW (11.7-14.6) % 14.0 Plt Count (130-400) 10^3/uL 236 MPV (8.0-11.0) fL 10.1 Immature Gran % % 0.5 Neutrophils % % 77.5 Lymphocytes % % 13.6 Monocytes % % 7.8 Eosinophils % % 0.3 Basophils % % 0.3 Nucleated RBC % (0.0-0.3) % 0.0 Absolute Neutrophils (1.2-6.7) 10^3/uL 11.30 H Absolute Lymphocytes (1.2-3.4) 10^3/uL 1.98 Absolute Monocytes (0.1-0.8) 10^3/uL 1.14 H Absolute Eosinophils (0.0-0.7) 10^3/uL 0.04 Absolute Basophils (0.0-0.2) 10^3/uL 0.04 VBG Lactate (<or=2.0) mmol/L 0.6 Sodium (136-145) mmol/L 134 L Potassium (3.5-5.1) mmol/L 4.0 Chloride (98-107) mmol/L 101 Carbon Dioxide (21.0-32.0) mmol/L 21.9 Anion Gap (3-11) mmol/L 11.1 H BUN (7-18) mg/dL 19 H Creatinine (0.55-1.02) mg/dL 1.0 Est GFR (CKD-EPI 2020) (mL/min/1.73m2) 58.39 Glucose (74-106) mg/dL 132 H Calcium (8.5-10.1) mg/dL 8.5 Total Bilirubin (0.2-1.0) mg/dL 0.8 AST (15-37) U/L 13 L ALT (14-59) U/L 35 Alkaline Phosphatase (46-116) U/L 70 Total Protein (6.4-8.2) g/dL 6.8 Albumin (3.4-5.0) g/dL 3.2 L Urine Color (Yellow) Yellow Urine Clarity (Clear) Sl Cloudy Urine pH (5-8) 5.5 Ur Specific [place] (1.005-1.025) 1.015 Urine Protein (Neg-Trace) mg/dL 100 H Urine Ketones (Negative) mg/dL Trace H Urine Blood (Negative) Moderate H Urine Nitrite (Negative) Positive H Urine Bilirubin (Negative) Negative Urine Urobilinogen (Up to 0.2) mg/dL 1.0 H Ur Leukocyte Esterase (Negative) Large H Urine RBC Not Applicable Urine WBC (0-5) HPF >50 H Ur Epithelial Cells Not Applicable Urine Crystals Not Applicable Urine Bacteria Not Applicable Urine Mucus Not Applicable Ur Culture Indicated? Yes Urine Glucose (Negative) mg/dL 100 H PFSH All Active Problems (Updated 05/10/25 @ 23:12 by Dylan Daniels MD) Urinary tract infection (Acute) Urinary tract obstruction due to kidney stone (Acute) Weight loss, unintentional (Acute) Recurrent UTI (Acute) ASCVD (arteriosclerotic cardiovascular disease) (Chronic) S/p stents x 4 [place] [facility] [place] Hyperlipidemia (Chronic) Essential hypertension (Chronic) Osteoporosis (Chronic) Dexa 09/06; declines osteoporosis meds History of melanoma (Chronic) Prediabetes (Chronic) Allergic rhinitis (Chronic) Recurrent cystitis (Chronic) Managed with topical estrogen cream Medical History Tubular adenoma of colon 2014 and 2022 colonoscopy 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 [place] [facility] [place] Unstable angina pectoris due to coronary arteriosclerosis (~05/2018) S/p cardiac cath and stenting [place] [facility] [place]/28/18 Surgical History S/P colonoscopy (06/18/23) S/P ORIF (open reduction internal fixation) fracture (~2021) Left tibial plateau fracture S/P right breast biopsy (~1988) S/P cardiac catheterization (~05/29/18) Family History Mother , at 84 of metastatic lung cancer Lung cancer Hypertension Father , at 70 of [place] Heart disease Hyperlipidemia Renal failure Myocardial infarction Prostate cancer Type 2 diabetes mellitus Hypertension Brother No problems noted. Brother No problems noted. Daughter No problems noted. Maternal Grandfather , at 101 Brain aneurysm Maternal Grandmother No problems noted. Paternal Grandfather , age 74 Aneurysm Paternal Grandmother No problems noted. 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 Pets and animals: Yes Pets and animals: cat(s) and dog(s) Sexually active: Yes Do you think of yourself as: straight/heterosexual Current gender identity: female What is your relationship status?: How often do you talk on the phone with friends or family?: once per week How often do you get together with friends or relatives?: decline to answer How often do you attend roman catholic or sabianism services?: decline to answer Do you belong to any clubs or organized social groups?: no Panel score (0-1 are the most socially isolated patients): 1 What type of physical activity do you participate in: none Frequency: does not exercise Annita/Zoroastrianism: No preference Special annita needs: No Seatbelt use: always Helmet use: No Drive intox or ride w/intox 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
--- NOTE | 2025-05-10 22:56 | DI.VRAD_ITS ---
PROCEDURE INFORMATION: Exam: CT Abdomen And Pelvis With Contrast Exam date and time: 05/10/2025 10:24 PM Age: 74 years old Clinical indication: Fever and other: Fever and lower abdominal pain TECHNIQUE: Imaging protocol: Computed tomography of the abdomen and pelvis with contrast. Contrast material: OMNIPAQUE 350; Contrast volume: 75 ml; Contrast route: INTRAVENOUS (IV); COMPARISON: US RENAL 12/08/2024 7:29 AM FINDINGS: Liver: Normal. Gallbladder and biliary ducts: Normal. Pancreas: 6 mm cystic focus within the pancreatic body (series 8, image 19). Spleen: Normal. Adrenal glands: Normal. No mass. Kidneys and ureters: Right hydronephrosis and proximal right hydroureter, with obstructive 6 x 4 mm calculus in the right mid ureter (series 8, image 56). Stomach and bowel: Moderate amount of stool throughout the colon, compatible with constipation. No obstruction. Appendix: No evidence of appendicitis. Intraperitoneal space: Unremarkable. No free air. No significant fluid collection. Vasculature: Unremarkable. No abdominal aortic aneurysm. Lymph nodes: Unremarkable. No enlarged lymph nodes. Urinary bladder: Unremarkable as visualized. Reproductive: Unremarkable as visualized. Bones/joints: Mild levoscoliosis of the lumbar spine. Soft tissues: Small fat containing umbilical hernia, without acute complications. IMPRESSION: 1. Right hydronephrosis and proximal right hydroureter, with obstructive 6 x 4 mm calculus in the right mid ureter (series 8, image 56). 2. 6 mm cystic focus within the pancreatic body (series 8, image 19). 3. Moderate amount of stool throughout the colon, compatible with constipation. No obstruction. Dictated and Authenticated by: Colin Rocha MD. Orderin Jeremiah Richardson MD
[2025-05-11] VITALS (54 sets, daily range): BP systolic 93–150; BP diastolic 52–69; PULSE 57–95; RESP 16; TEMP 36–37.8; TEMPC 36.2; O2SAT 87–99; BMI 26.2
--- NOTE | 2025-05-11 00:35 | W.EDPROG ---
Date of service: 05/11/25 Time of Service: 00:35 Medical Decision Making This patient was signed out to me. Please see previous notes for H&P and initial eval. In brief, 74yo F with infected kidney stone. No urology available at [facility] tonight (per on-call schedule Dr. Esparza from urology will be available tomorrow but then not over the weekend). Signed out pending [facility] urology for transfer. Spoke with Dr. Suh [facility] urology; pt accepted. Regrettably no ambulances available overnight; multiple services refused. Early am reached out to Dr. Esparza from urology here and was able to reach him; case discussed and he is able to accept patient here at [facility], plan for OR this morning. Will remain in ED pending OR. Anticipate discharge home from PACU. Discharge Plan Disposition Patient Disposition: Other Disposition Not Listed Other Facility: operating room Condition: Serious Discharge Details Clinical Impression: Urinary tract obstruction due to kidney stone, Urinary tract infection Primary Care Provider: Judith Jerome ED Provider: Angelika Solis Donnellson Meds and New Rx's Prescriptions: No Action chlorpheniramine maleate 4 mg tablet 4 mg PO DAILY PRN PRN (DME) rectal, vaginal applicator tip Misc See Rx Instructions .Route Qty: 48 0RF Rx Instructions: Use with estradiol cream epinephrine [Auvi-Q] 0.3 mg/0.3 mL auto-injector 0.3 mg IM Q5-15M PRN (Reason: hypersensitivity reaction) Qty: 2 0RF Rx Instructions: do not exceed 3 doses per episode aspirin [Ecotrin Low Strength] 81 MG tablet,delayed release (DR/EC) 81 mg PO DAILY Patient Comments: 06/24/17 Has not been taking. ts cholecalciferol (vitamin D3) 2,000 unit capsule 2,000 unit PO DAILY Qty: 90 4RF Rx Instructions: Start after 8wks of 50,000 IU weekly nitroglycerin 0.4 mg tablet, sublingual 0.4 mg sublingual Q5-15M PRN (Reason: chest pain) Qty: 25 3RF Rx Instructions: 1 tablet every 5 minutes x 3 doses if needed for chest pain. Seek emergency services if not improving after first dose lisinopril 40 mg tablet 40 mg PO DAILY Qty: 90 3RF atorvastatin [Lipitor] 40 mg tablet 40 mg PO DAILY Qty: 90 3RF metoprolol succinate 100 mg tablet extended release 24 hr 100 mg PO DAILY Qty: 90 3RF acyclovir 400 mg tablet 400 mg PO BID Qty: 180 3RF estradiol 10 mcg tablet 10 mcg VAGINAL DAILY Patient Comments: INSERT ONE INSERT VAGINALLY ONCE DAILY FOR TWO WEEKS, FOLLOWED BY ONE INSERT TWICE WEEKLY (EVERY 3 TO 4 DAYS)S
--- NOTE | 2025-05-11 07:31 | W.PM.HP.N ---
Date of service: 05/11/25 Time of Service: 07:32 Assessment and Plan Assessment and plan (1) Urinary tract obstruction due to kidney stone: Status: Acute Assessment and plan: He has received a dose of IV antibiotics. We will plan to place a right ureteral stent to relieve her obstruction and discharge her with oral antibiotic at this. We will not attempt ureteroscopy or holmium laser lithotripsy until her infection has been controlled. I would expect that we would be able to schedule her ureteroscopy and holmium laser lithotripsy after a week or 2 of antibiotics. History of Present Illness History of Present Illness Chief Complaint: Infected ureteral stone Narrative: This is a 74-year-old woman who does have a past history of kidney stones. She estimates her stone occurrence having happened about 30 years ago. She did not require surgical treatment at that time. More recently, she has had recurrent episodes of urinary tract infection. Her urine cultures have persistently grown Klebsiella. She improved with antibiotics but her symptoms recur and she will again have positive cultures with the same organism. She presented to the emergency department last evening with fevers and right-sided flank pain. Her urine again appears infected and his CT scan demonstrated a right mid ureteral stone with hydronephrosis and I agree ureter. Review of Systems Narrative: Febrile last night No vision change or dysphasia No diabetes or thyroid dysfunction No shortness of breath, cough or hemoptysis No chest pain or palpitations No hepatitis, ulcers, jaundice No seizures, strokes or peripheral neuropathy No bleeding disorders or anemia No gout PFSH All Active Problems (Updated 05/10/25 @ 23:12 by Dylan Daniels MD) Urinary tract infection (Acute) Urinary tract obstruction due to kidney stone (Acute) Weight loss, unintentional (Acute) Recurrent UTI (Acute) ASCVD (arteriosclerotic cardiovascular disease) (Chronic) S/p stents x 4 to LAD 05/29/18 at [facility] for unstable angina Hyperlipidemia (Chronic) Essential hypertension (Chronic) Osteoporosis (Chronic) Dexa 09/06; declines osteoporosis meds History of melanoma (Chronic) Prediabetes (Chronic) Allergic rhinitis (Chronic) Recurrent cystitis (Chronic) Managed with topical estrogen cream Medical History Tubular adenoma of colon 2014 and 2022 colonoscopy 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 s/p excision at [facility] Unstable angina pectoris due to coronary arteriosclerosis (~05/2018) S/p cardiac cath and stenting at [facility] 05/28/18 Surgical History S/P colonoscopy (06/18/23) S/P ORIF (open reduction internal fixation) fracture (~2021) Left tibial plateau fracture S/P right breast biopsy (~1988) S/P cardiac catheterization (~05/29/18) Family History Mother , at 84 of metastatic lung cancer Lung cancer Hypertension Father , at 70 of [place] Heart disease Hyperlipidemia Renal failure Myocardial infarction Prostate cancer Type 2 diabetes mellitus Hypertension Brother No problems noted. Brother No problems noted. Daughter No problems noted. Maternal Grandfather , at 101 Brain aneurysm Maternal Grandmother No problems noted. Paternal Grandfather , age 74 Aneurysm Paternal Grandmother No problems noted. 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 Pets and animals: Yes Pets and animals: cat(s) and dog(s) Sexually active: Yes Do you think of yourself as: straight/heterosexual Current gender identity: female What is your relationship status?: How often do you talk on the phone with friends or family?: once per week How often do you get together with friends or relatives?: decline to answer How often do you attend restorationism or sikhism services?: decline to answer Do you belong to any clubs or organized social groups?: no Panel score (0-1 are the most socially isolated patients): 1 What type of physical activity do you participate in: none Frequency: does not exercise Annita/Quaker: No preference Special annita needs: No Seatbelt use: always Helmet use: No Drive intox 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 Do you feel safe at home: Yes Do you feel safe in your relationship?: Yes Victim of physical abuse: No Victim of emotional abuse: No Victim of sexual abuse: No Would you like helpful sources: No History History 3 Para Hx # Term Pregnancies Multiple births Hx # Pregnancies Ectopic pregnancies AB induced 1 Hx Number of Living Children 1 AB spontaneous 1 Meds Allergies and Home Medications Allergies Allergy/AdvReac Type Severity Reaction Status Date / Time Sulfa (Sulfonamide Allergy Severe Skin Rash Verified 05/10/25 21:05 Antibiotics) nitrofurantoin Allergy Intermediate angioedema, Verified 05/10/25 21:05 throat tightness, itching ciprofloxacin (From Cipro) Allergy Mild Skin Rash Verified 05/10/25 21:05 Penicillins Allergy Mild Skin Rash Verified 05/10/25 21:05 sulfamethoxazole (From Allergy Skin Rash Verified 05/10/25 21:05 Septra) trimethoprim (From Septra) Allergy Skin Rash Verified 05/10/25 21:05 hydrochlorothiazide AdvReac Intermediate TINGLING, Verified 05/10/25 21:05 SWOLLEN LIPS oxycodone AdvReac GI symptoms Verified 05/10/25 21:05 Home Medications ?Medication ?Instructions ?Recorded ?Confirmed ?Type aspirin 81 mg tablet,delayed 81 mg PO DAILY 03/16/13 05/10/25 History release (Ecotrin Low Strength) chlorpheniramine maleate 4 mg 4 mg PO DAILY PRN PRN 07/14/18 05/10/25 History tablet cholecalciferol (vitamin D3) 50 2,000 unit PO DAILY #90 caps 10/10/18 05/10/25 Rx mcg (2,000 unit) capsule nitroglycerin 0.4 mg sublingual 0.4 mg sublingual Q5-15M PRN chest 08/11/23 05/10/25 Rx tablet pain #25 tabs rectal, vaginal applicator tip #48 ea 01/06/24 05/11/25 Rx atorvastatin 40 mg tablet (Lipitor) 40 mg PO DAILY #90 tabs 01/10/25 05/10/25 Rx lisinopril 40 mg tablet 40 mg PO DAILY #90 tabs 01/10/25 05/10/25 Rx metoprolol succinate 100 mg 100 mg PO DAILY #90 tabs 01/10/25 05/10/25 Rx tablet,extended release 24 hr acyclovir 400 mg tablet 400 mg PO BID #180 tabs 02/15/25 05/10/25 Rx epinephrine 0.3 mg/0.3 mL 0.3 mg (0.3 mL) IM Q5-15M PRN 03/15/25 05/10/25 Rx injection, auto-injector (Auvi-Q) hypersensitivity reaction #2 ea estradiol 10 mcg vaginal tablet 10 mcg vaginal DAILY 05/10/25 05/11/25 History Exam Const General: cooperative and not ill appearing Neck Neck: supple Resp Effort & Inspection: normal respiratory effort Auscultation: clear to auscultation bilaterally Cardio Rate: regular rate Rhythm: regular rhythm GI Palpation: soft and no masses Neuro General: patient alert, patient awake and patient oriented x3 Results Labs 05/10/25 21:31 05/10/25 21:31 Labs: Laboratory Results - last 24 hr 05/10/25 05/10/25 20:56 21:31 WBC 14.58 H RBC 3.78 L Hgb 12.0 Hct 36.1 MCV 96 H MCH 31.7 MCHC 33.2 RDW 14.0 Plt Count 236 MPV 10.1 Immature Gran % 0.5 Neutrophils % 77.5 Lymphocytes % 13.6 Monocytes % 7.8 Eosinophils % 0.3 Basophils % 0.3 Nucleated RBC % 0.0 Absolute Neutrophils 11.30 H Absolute Lymphocytes 1.98 Absolute Monocytes 1.14 H Absolute Eosinophils 0.04 Absolute Basophils 0.04 VBG Lactate 0.6 Sodium 134 L Potassium 4.0 Chloride 101 Carbon Dioxide 21.9 Anion Gap 11.1 H BUN 19 H Creatinine 1.0 Est GFR (CKD-EPI 2020) 58.39 Glucose 132 H Calcium 8.5 Total Bilirubin 0.8 AST 13 L ALT 35 Alkaline Phosphatase 70 Total Protein 6.8 Albumin 3.2 L Urine Color Yellow Urine Clarity Sl Cloudy Urine pH 5.5 Ur Specific Ambler 1.015 Urine Protein 100 H Urine Ketones Trace H Urine Blood Moderate H Urine Nitrite Positive H Urine Bilirubin Negative Urine Urobilinogen 1.0 H Ur Leukocyte Esterase Large H Urine RBC Not Applicable Urine WBC >50 H Ur Epithelial Cells Not Applicable Urine Crystals Not Applicable Urine Bacteria Not Applicable Urine Mucus Not Applicable Ur Culture Indicated? Yes Urine Glucose 100 H Last Vital Signs Temp 36.6 C 05/10/25 21:04 Pulse 89 05/11/25 07:20 Resp 18 05/10/25 21:04 BP 150/52 H 05/11/25 04:46 Pulse Ox 95 05/11/25 07:20 Time Spent Time spent with Patient: <40 minutes Time was spent: preparing to see the patient(eg.review tests), obtaining and/or reviewing separately otained hiistory, referring, communicating with other health critical care nurse practitioner, indepentently interpreting results, counseling the patient and care coordination
--- NOTE | 2025-05-11 07:43 | ANES.PREOP_ITS ---
General Info Date of Service Date Performed: 05/11/25 Height: 5 ft 2.75 in Weight: 66.5 kg Body Mass Index (BMI): 26.2 Surgical Procedure: Operation Date: 05/11/25 09:55 Proposed Procedure Side Surgeon p Cystoscopy/Laser/Retrograde/Ureteroscopy Right Yariel Esparza MD Meds Allergies and Home Medications Allergies Allergy/AdvReac Type Severity Reaction Status Date / Time Sulfa (Sulfonamide Allergy Severe Skin Rash Verified 05/10/25 21:05 Antibiotics) nitrofurantoin Allergy Intermediate angioedema, Verified 05/10/25 21:05 throat tightness, itching ciprofloxacin (From Cipro) Allergy Mild Skin Rash Verified 05/10/25 21:05 Penicillins Allergy Mild Skin Rash Verified 05/10/25 21:05 sulfamethoxazole (From Allergy Skin Rash Verified 05/10/25 21:05 Septra) trimethoprim (From Septra) Allergy Skin Rash Verified 05/10/25 21:05 hydrochlorothiazide AdvReac Intermediate TINGLING, Verified 05/10/25 21:05 SWOLLEN LIPS oxycodone AdvReac GI symptoms Verified 05/10/25 21:05 Home Medication ?Medication ?Instructions ?Recorded aspirin 81 mg tablet,delayed 81 mg PO DAILY 03/16/13 release (Ecotrin Low Strength) chlorpheniramine maleate 4 mg 4 mg PO DAILY PRN PRN tablet cholecalciferol (vitamin D3) 50 2,000 unit PO DAILY #9 0 caps 10/10/18 mcg (2,000 unit) capsule nitroglycerin 0.4 mg sublingual 0.4 mg sublingual Q5-1 5M PRN chest 08/11/23 tablet pain #25 tabs rectal, vaginal applicator tip #48 ea 01/06/24 atorvastatin 40 mg tablet (Lipitor) 40 mg PO DAILY #90 tabs 01/10/25 lisinopril 40 mg tablet 40 mg PO DAILY #90 tabs 12/20 12/12 metoprolol succinate 100 mg 100 mg PO DAILY #90 tabs 0 01/10/25 tablet,extended release 24 hr acyclovir 400 mg tablet 400 mg PO BID #180 tabs 01/19 06/14 epinephrine 0.3 mg/0.3 mL 0.3 mg (0.3 mL) IM Q5-15M OH N 03/15/25 injection, auto-injector (Auvi-Q) hypersensitivity candy ction #2 ea estradiol 10 mcg vaginal tablet 10 mcg vaginal DAILY 0 05/10/25 Current Visit Medications: Current Medications Generic Name Dose Route Start Last Admin Trade Name Freq PRN Reason Stop Dose Admin Iohexol 100 ml 05/10/25 22:15 05/10/25 22:15 Omnipaque 350 Mg/Ml 100 Ml Btl IJ 06/09/25 23:59 75 ml DIRECTED KAYLI Administration Sodium Chloride 50 ml 05/10/25 22:15 05/10/25 22:15 Normal Saline - Diluent 50 Ml Vial IJ 50 ml .FOR DI USE KAYLI Administration Sodium Chloride 50 ml 05/10/25 22:15 Normal Saline - Diluent 50 Ml Vial IJ DIRECTED KAYLI Sodium Chloride 0 ml 05/10/25 22:14 Normal Saline Flush 10 Ml Syr IVP PRN PRN Sodium Chloride 0 ml 05/10/25 22:15 05/10/25 22:15 Normal Saline Flush 10 Ml Syr IVP 10 ml PRN PRN Administration PFSH Active Problems Active Problems: Problem Status Onset Code Urinary tract infection Acute N39.0 Urinary tract obstruction due to kidney stone Acute N20.0, N13.8 Weight loss, unintentional Acute R63.4 Recurrent UTI Acute N39.0 ASCVD (arteriosclerotic cardiovascular disease) Chronic I25.10 Hyperlipidemia Chronic E78.5 Essential hypertension Chronic I10 Osteoporosis Chronic M81.0 History of melanoma Chronic Z85.820 Prediabetes Chronic R73.03 Allergic rhinitis Chronic J30.9 Recurrent cystitis Chronic N30.90 Medical History Medical History Tubular adenoma of colon 2014 and 2022 colonoscopy 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 s/p [place] [facility] [place]stable angina pectoris due to coronary arteriosclerosis (~05/2018) S/p cardiac cath and stenting [place] [facility] [place] Surgical History Surgical History S/P colonoscopy (06/18/23) S/P ORIF (open reduction internal fixation) fracture (~2021) Left tibial plateau fracture S/P right breast biopsy (~1988) S/P cardiac catheterization (~05/29/18) Tobacco Smoking/Tobacco Use Status: Never Passive smoking exposure: Yes Second hand exposure: Yes Alcohol Alcohol Intake: current Alcohol intake frequency: 3 or more drinks per day Alcohol type: wine Substance Use Substance use: Never Substance use type: does not use Prental History History 2 3 Para Hx # Term Pregnancies Multiple births Hx # Pregnancies Ectopic pregnancies AB induced 1 Hx Number of Living Children 1 AB spontaneous 1 Vital Signs and Lab Results Vital Signs Most Recent Vital Signs in EMR: Most Recent Vital Signs Temp Pulse Resp BP Pulse Ox 36.6 C 89 18 150/52 H 95 05/10/25 21:04 05/11/25 07:20 05/10/25 21:04 05/11/25 04:46 05/11/25 07:20 Lab Results 05/10/25 21:05/10/25 21: Complete Blood Count: 2 WBC, (4.4-10.8) 14.58 10^3/uL H 05/10/25, 21: RBC, (3.93-5.22) 3.78 10^6/uL L 05/10/25, 21: Hgb, (11.2-15.7) 12.0 g/dL 05/10/25, : Hct, (36.0-46.0) 36.1 % 05/10/25, : Plt Count, (130-400) 236 10^3/uL 05/10/25, 21: VBG Lactate, (<or=2.0) 0.6 mmol/L 05/10/25, 21: Complete Metabolic Panel: 2 Sodium, (136-145) 134 mmol/L L 05/10/25, 21: Potassium, (3.5-5.1) 4.0 mmol/L 05/10/25, : Chloride, (98-107) 101 mmol/L 05/10/25, : Carbon Dioxide, (21.0-32.0) 21.9 mmol/L 05/10/25, : BUN, (7-18) 19 mg/dL H 05/10/25, 21: Creatinine, (0.55-1.02) 1.0 mg/dL 05/10/25, 21: Est GFR (CKD-EPI 2020), (mL/min/1.73m2) 58.39 05/10/25, 21:31 Calcium, (8.5-10.1) 8.5 mg/dL 05/10/25, 21:31 Albumin, (3.4-5.0) 3.2 g/dL L 05/10/25, 21:31 Glucose, (74-106) 132 mg/dL H 05/10/25, 21:31 Liver Function Panel: 2 ALT, (14-59) 35 U/L 05/10/25, 21:31 AST, (15-37) 13 U/L L 05/10/25, 21:31 Anesthesia Assessment and Plan Anesthesia History Personal History: No History of Anesthesia Complications Family History: No Family History of Anesthesia Complications Exercise Tolerance Exercise Tolerance: Metabolic Equivalents>4 Pertinent Negatives Pertinent Negatives: No Symptoms of GERD Cardiac & Pulmonary Exam Cardiac Exam: Normal S1/S2 Heart Sounds Pulmonary Exam: Clear Bilateral Breath Sounds Implantable Cardiac Device Does patient have a Pacemaker or an ICD?: No Airway Exam Known Difficult Airway: No Mallampati Class: 2 Mouth Opening: Normal (> 3cm) Thyromental Distance: Greater than 3 cm Neck Range of Motion: Full ROM Neck Circumference: Normal Teeth Condition: Normal Dentition ASA Classification ASA Score: ASA 3 Emergency Case?: No NPO Status NPO Status: NPO Clears >2 hours, Solids >8 hours Anesthesia Plan Resuscitation Status: Full Code Anesthesia Technique: General Anesthesia Airway Planned: LMA Monitors Used: Standard Monitors and SedLine Preoperative Comments:: HTN, ASCVD (arteriosclerotic cardiovascular disease): S/p stents x 4 to [place] [facility] [place] for unstable angina. Has been well since.
[2025-05-11] MEDS: ACETAMINOPHEN 1,000 MG/100 ML BAG 400 MG IVPB (08:37)
[2025-05-11] MEDS: Lactated Ringers 1,000 ML 80 ML IV (08:56)
[2025-05-11] MEDS: Omnipaque 300 MG/ML 50 ML BTL (09:23)
[2025-05-11] MEDS: Lidocaine 2% Jelly 6 ML SYR (09:24)
--- NOTE | 2025-05-11 09:34 | W.PM.DSUDISC ---
Date of service: 05/11/25 Discharge Plan Disposition Patient Disposition: Home Condition: Stable Discharge Details Reason For Visit: UTI/ureteral stone Attending Provider: Yariel Esparza Primary Care Provider: Judith Jerome Home Meds and New Rx's Prescriptions: New cefpodoxime 200 mg tablet 200 mg PO Q12H Qty: 30 0RF Rx Instructions: must administer with a meal/food No Action chlorpheniramine maleate 4 mg tablet 4 mg PO DAILY PRN PRN (DME) rectal, vaginal applicator tip Misc See Rx Instructions .Route Qty: 48 0RF Rx Instructions: Use with estradiol cream epinephrine [Auvi-Q] 0.3 mg/0.3 mL auto-injector 0.3 mg IM Q5-15M PRN (Reason: hypersensitivity reaction) Qty: 2 0RF Rx Instructions: do not exceed 3 doses per episode aspirin [Ecotrin Low Strength] 81 MG tablet,delayed release (DR/EC) 81 mg PO DAILY Patient Comments: 06/24/17 Has not been taking. ts cholecalciferol (vitamin D3) 2,000 unit capsule 2,000 unit PO DAILY Qty: 90 4RF Rx Instructions: Start after 8wks of 50,000 IU weekly nitroglycerin 0.4 mg tablet, sublingual 0.4 mg sublingual Q5-15M PRN (Reason: chest pain) Qty: 25 3RF Rx Instructions: 1 tablet every 5 minutes x 3 doses if needed for chest pain. Seek emergency services if not improving after first dose lisinopril 40 mg tablet 40 mg PO DAILY Qty: 90 3RF atorvastatin [Lipitor] 40 mg tablet 40 mg PO DAILY Qty: 90 3RF metoprolol succinate 100 mg tablet extended release 24 hr 100 mg PO DAILY Qty: 90 3RF acyclovir 400 mg tablet 400 mg PO BID Qty: 180 3RF estradiol 10 mcg tablet 10 mcg VAGINAL DAILY Patient Comments: INSERT ONE INSERT VAGINALLY ONCE DAILY FOR TWO WEEKS, FOLLOWED BY ONE INSERT TWICE WEEKLY (EVERY 3 TO 4 DAYS)S Discharge Instructions Additional Instructions: While the stent is in place, you may notice some blood in the urine. You may urinate more frequently or has discomfort when you urinate My office will contact you to make arrangements for a ureteroscopy and holmium laser lithotripsy of your stone. The next surgery should be done in approximately 1 to 2 weeks. Activity:: Activity as Tolerated Shower/Bathe:: 24 hours Diet:: As Tolerated Discharge Orders Discharge Orders: Discharge Order (Routine); Ordered 05/11/25 Ordered By: Yariel Esparza DS: Diagnosis Discharge Diagnosis (1) Urinary tract obstruction due to kidney stone: Status: Acute
--- NOTE | 2025-05-11 09:35 | DI.RAD_ITS ---
Exam(s) XR RETROGRADE IN OR EXAM: XR RETROGRADE IN OR CLINICAL HISTORY: RIGHT URETERAL STONE, UTI. TECHNIQUE: 2D and realtime digital imaging was performed. CONTRAST MATERIAL: Oral barium Oral water soluble contrast was administered. COMPARISON: CT scan 05/10/2025 was reviewed FINDINGS: Fluoroscopy was provided during retrograde right side urologic procedure for stone treatment. See procedure report for details IMPRESSION: As above RADIATION DOSE DELIVERED: Ka,r=3.82mGy
--- NOTE | 2025-05-11 09:38 | W.PM.OP ---
Operative Note Operative Note PRE-OP DIAGNOSIS: Right ureteral stone POST-OP DIAGNOSIS: same UTI PROCEDURE: Cystoscopy, right retrograde pyelogram, insert right ureteral stent SURGEON: Yariel Esparza ANESTHESIA TYPE: Local By Surgeon and General:No Airway Refer to Anesthesia Record ESTIMATED BLOOD LOSS: 5 PATHOLOGY: none sent COMPLICATIONS: None Patient was transported to: same day Patient's condition: stable Implants: 7 Turkish by 22 to 30 cm right ureteral stent Indications: This is a 74-year-old woman who has a history of kidney stones in the distant past. She has never required surgical treatment for stones. She estimates that her last occurrence was about 30 years ago. She has had recurrent urinary tract infections, typically with the same organism (Klebsiella). She presented to the emergency department last evening with fevers and right flank pain. Her urinalysis was suspicious for an infection. A CT scan showed a mid right ureteral stone with significant hydronephrosis. She presents now for stent placement with plans being made for a return trip to the operating room for ureteroscopy and holmium laser lithotripsy once her infection has been treated Findings: Markedly dilated right proximal ureteral and collecting system Procedure Description: The patient was given IV antibiotics and brought to the operating room on 05/11/2025. After successful induction of general anesthesia without intubation, she was placed in the dorsal lithotomy position. Her genitalia was prepped and draped. 2% Xylocaine jelly was instilled into the urethra to act as a local anesthetic. The 22 Turkish rigid cystoscope was passed through the urethra into the bladder. The bladder was inspected with a 30 degree lens. The bladder mucosa appeared hyperemic and the urine was quite cloudy. The right ureteral orifice was visualized and was cannulated with a 5 Turkish access catheter. A retrograde pyelogram was obtained by injecting Omnipaque through the access catheter under fluoroscopic guidance. The distal ureter appeared fairly normal until a filling defect was identified in the mid ureter. The ureter above the filling defect was dilated, tortuous and connected to a large distended collecting system. I was able to pass a guidewire through the lumen of the access catheter and advanced the wire above the level of the filling defect. I then passed a 7 Turkish variable length stent over the wire. We position the stent with the proximal end curled in the renal pelvis and the distal and curled within the bladder. Once the wire and stent had been placed, a hydronephrotic drip was seen from the right kidney. The patient tolerated this procedure well with no complications. She was taken back to the day surgery unit in stable condition. We will make arrangements for return trip to the operating room in 1 to 2 weeks after her UTI has been treated. Her follow-up procedure will include ureteroscopy and holmium laser lithotripsy of her stone. Date of Procedure: 05/11/25
--- NOTE | 2025-05-11 09:46 | W.ANESPOSTOP ---
Postoperative Evaluation Date, Time and Location Date Performed: 05/11/25 Time Performed: 09:46 Patient Location: Day Surgery Unit Vital Signs Most Recent Imported Vital Signs: Most Recent Vital Signs Temp Pulse Resp BP Pulse Ox 37.8 C H 89 18 141/64 H 96 05/11/25 07:54 05/11/25 07:50 05/10/25 21:04 05/11/25 07:50 05/11/25 07:49 Most Recent Manually Entered Vital Signs: Adult Blood Pressure: 93/60 Heart Rate: 84 Respirations: 16 Oxygen Saturation (%): 94 Temperature (C): 36.2 C Pain Score (0-10 Scale): 0 Pain Score Most Recent Pain Score: Most Recent Pain Score Pain Level 7 05/10/25 21:43 Assessment Mental Status: Awake (Alert & Oriented to Patient Baseline) Airway and Respiratory Function: Patent airway with normal (patient baseline) respiratory exam Cardiovascular Function: Hemodynamically Stable Hydration Status: Adequately Hydrated Nausea & Vomiting: No Nausea or Vomiting Pain: Pain is tolerable per patient Peripheral Nerve Block: Patient did not receive a nerve block
[2025-05-11] MEDS: Phenazopyridine 200 MG TAB PO (10:28)
== END 2025-05-11 10:51 | disposition home or self-care (01) ==
LOC: ER 05-11 07:28 → SUR 05-11 08:36
PROVIDERS: General Practice; Emergency Provider Student in an Organized Health Care Education/Training Program; PCP Nurse Practitioner Family; Visit Provider Urology
PROC: (CPT 52332; principal; 2025-05-11 09:45)
DX: N20.0 Calculus of kidney (principal); N13.8 Other obstructive and reflux uropathy; N39.0 Urinary tract infection, site not specified
CPT/HCPCS: 52332; 00123; 80053; 87077; 96365; 96375; 99285; 74177; 74420; 81003; 81015; 83605; 85025; 87086; 87186; J0131; J0696; J1885; J2003; J2405; J2704; J3010; J3490; Q9967

== ENCOUNTER 2025-05-25 21:53 | Outpatient (REF) | payer MEDICARE, SELFPAY ==
[2025-05-25 22:18] LABS: Glucose Negative (Negative)
== END 2025-05-25 21:54 | disposition home or self-care (01) ==
LOC: LBN 21:53
PROVIDERS: PCP Nurse Practitioner Family; Visit Provider Urology
DX: N13.8 Other obstructive and reflux uropathy (principal); N20.0 Calculus of kidney; N39.0 Urinary tract infection, site not specified
CPT/HCPCS: 87077; 81003; 81015; 87086; 87186

== ENCOUNTER 2025-05-28 07:12 | Day surgery (SDC) | payer MEDICARE, SELFPAY ==
[2025-05-28] VITALS (13 sets, daily range): BP systolic 120–148; BP diastolic 60–87; PULSE 60–90; RESP 12–22; TEMP 36.2–36.9; O2SAT 93–98; BMI 26.2
--- NOTE | 2025-05-28 06:27 | ANES.PREOP_ITS ---
General Info Date of Service Date Performed: 05/28/25 Height: 5 ft 2.75 in Weight: 66.5 kg Body Mass Index (BMI): 26.2 Surgical Procedure: Operation Date: 05/28/25 09:10 Proposed Procedure Side Surgeon p Cystoscopy/Laser/Retrograde/Ureteroscopy/ Stent Removal Right Yariel Esparza MD Meds Allergies and Home Medications Allergies Allergy/AdvReac Type Severity Reaction Status Date / Time Sulfa (Sulfonamide Allergy Severe Skin Rash Verified 05/28/25 07:37 Antibiotics) nitrofurantoin Allergy Intermediate angioedema, Verified 05/28/25 07:37 throat tightness, itching ciprofloxacin (From Cipro) Allergy Mild Skin Rash Verified 05/28/25 07:37 Penicillins Allergy Mild Skin Rash Verified 05/28/25 07:37 sulfamethoxazole (From Allergy Skin Rash Verified 05/28/25 07:37 Septra) trimethoprim (From Septra) Allergy Skin Rash Verified 05/28/25 07:37 hydrochlorothiazide AdvReac Intermediate [place]INGL[place], Verified 05/28/25 07:37 SWOLLEN LIPS oxycodone AdvReac GI symptoms Verified 05/28/25 07:37 Home Medication ?Medication ?Instructions ?Recorded aspirin 81 mg tablet,delayed 81 mg PO DAILY 03/16/13 release (Ecotrin Low Strength) chlorpheniramine maleate 4 mg 4 mg PO DAILY PRN PRN tablet cholecalciferol (vitamin D3) 50 2,000 unit PO DAILY #9 0 caps 10/10/18 mcg (2,000 unit) capsule nitroglycerin 0.4 mg sublingual 0.4 mg sublingual Q5-1 5M PRN chest 08/11/23 tablet pain #25 tabs rectal, vaginal applicator tip #48 ea 01/06/24 atorvastatin 40 mg tablet (Lipitor) 40 mg PO DAILY #90 tabs 01/10/25 lisinopril 40 mg tablet 40 mg PO DAILY #90 tabs 12/20 12/12 metoprolol succinate 100 mg 100 mg PO DAILY #90 tabs 0 01/10/25 tablet,extended release 24 hr acyclovir 400 mg tablet 400 mg PO BID #180 tabs 01/19 06/14 epinephrine 0.3 mg/0.3 mL 0.3 mg (0.3 mL) IM Q5-15M TX N 03/15/25 injection, auto-injector (Auvi-Q) hypersensitivity candy ction #2 ea estradiol 10 mcg vaginal tablet 10 mcg vaginal DAILY 0 05/10/25 cefpodoxime 200 mg tablet 200 mg PO Q12H #30 tabs 04/21 11/14 Current Visit Medications: Current Medications Generic Name Dose Route Start Last Admin Trade Name Freq PRN Reason Stop Dose Admin Ringer's Solution 1,000 mls @ 80 mls/hr 05/28/25 06:00 IV 06/24/25 23:59 INFUSION KAYLI Ceftriaxone Sodium/Dextrose 1 gm in 50 mls @ 100 mls/hr 05/28/25 06:00 Rocephin IVPB 05/28/25 23:59 PREOP KAYLI IV Miscellaneous Supplies 1 each 05/28/25 06:00 Iv Access IV 06/24/25 23:59 DIRECTED KAYLI Sodium Chloride 0 ml 05/28/25 06:00 Normal Saline Flush 10 Ml Syr IV 06/24/25 23:59 PRN PRN Sodium Chloride 0 ml 05/28/25 06:00 Normal Saline 10 Ml Vial IJ 06/24/25 23:59 DIRECTED PRN Sterile Water 0 ml 05/28/25 06:00 Water,Injection,Sterile 10 Ml Vial IJ 06/24/25 23:59 DIRECTED PRN PFSH Active Problems Active Problems: Problem Status Onset Code Urinary tract infection Acute N39.0 Urinary tract obstruction due to kidney stone Acute N20.0, N13.8 Weight loss, unintentional Acute R63.4 Recurrent UTI Acute N39.0 ASCVD (arteriosclerotic cardiovascular disease) Chronic I25.10 Hyperlipidemia Chronic E78.5 Essential hypertension Chronic I10 Osteoporosis Chronic M81.0 History of melanoma Chronic Z85.820 Prediabetes Chronic R73.03 Allergic rhinitis Chronic J30.9 Recurrent cystitis Chronic N30.90 Medical History Medical History Tubular adenoma of colon 2014 and 2022 colonoscopy 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 s/p excision at [facility] [place] Unstable angina pectoris due to coronary arteriosclerosis (~05/2018) S/p cardiac cath and stenting at [facility] [place] 05/28/18 Surgical History Surgical History S/P colonoscopy (06/18/23) S/P ORIF (open reduction internal fixation) fracture (~2021) Left tibial plateau fracture S/P right breast biopsy (~1988) S/P cardiac catheterization (~05/29/18) Tobacco Smoking/Tobacco Use Status: Never Passive smoking exposure: Yes Second hand exposure: Yes Alcohol Alcohol Intake: current Alcohol intake frequency: 3 or more drinks per day Alcohol type: wine Substance Use Substance use: Never Substance use type: does not use Prental History History 3 Para Hx # Term Pregnancies Multiple births Hx # Pregnancies Ectopic pregnancies AB induced 1 Hx Number of Living Children 1 AB spontaneous 1 Vital Signs and Lab Results Lab Results Complete Blood Count: WBC, (4.4-10.8) 14.58 10^3/uL H 05/10/25, 21: RBC, (3.93-5.22) 3.78 10^6/uL L 05/10/25, 21: Hgb, (11.2-15.7) 12.0 g/dL 05/10/25, 21: Hct, (36.0-46.0) 36.1 % 05/10/25, 21: Plt Count, (130-400) 236 10^3/uL 05/10/25, 21:31 VBG Lactate, (<or=2.0) 0.6 mmol/L 05/10/25, 21:31 Complete Metabolic Panel: Sodium, (136-145) 134 mmol/L L 05/10/25, 21:31 Potassium, (3.5-5.1) 4.0 mmol/L 05/10/25, 21: Chloride, (98-107) 101 mmol/L 05/10/25, 21:31 Carbon Dioxide, (21.0-32.0) 21.9 mmol/L 05/10/25, 21 :31 BUN, (7-18) 19 mg/dL H 05/10/25, 21: Creatinine, (0.55-1.02) 1.0 mg/dL 05/10/25, 21:31 Est GFR (CKD-EPI 2020), (mL/min/1.73m2) 58.39 05/10/25, 21: Calcium, (8.5-10.1) 8.5 mg/dL 05/10/25, 21:31 Albumin, (3.4-5.0) 3.2 g/dL L 05/10/25, 21:31 Glucose, (74-106) 132 mg/dL H 05/10/25, 21:31 Liver Function Panel: ALT, (14-59) 35 U/L 05/10/25, 21:31 AST, (15-37) 13 U/L L 05/10/25, 21:31 Imaging and Studies Imaging and Studies Study information below may be from another EMR and interpreted by another provider. Please see original notes in EMR for more complete details. EKG Summary: 09/18/22: Exam: Resting ECG Reason for Exam: cardiac evaluation Patient Location: O HR:62 bpm ECG Measurements Heart Rate 62 AXIS TX 178 P 2 QRSd 103 QRS -40 QT 422 T44 QTc 429 Conclusion Sinus rhythm...normal P axis, V-rate 50- 99 Left anterior fascicular block...axis(240,-40), init forces inf Possible anterior infarct, old...Q >40mS, abnormal ST-T, V2-V5 Echocardiogram Summary: 05/27/18: Summary: 1. Left ventricle: The cavity size was normal. Wall thickness was normal. Systolic function was normal. The estimated ejection fraction was 55-60%. Wall motion was normal; there were no regional wall motion abnormalities. 2. Right ventricle: The cavity size was normal. Systolic function was normal. 3. Left atrium: The atrium was mildly dilated. 4. Mitral valve: Mildly calcified annulus. Mildly thickened leaflets. There was mild regurgitation. 5. Inferior vena cava: The vessel was normal in size. The respirophasic diameter changes were in the normal range (greater than or equal to 50%), consistent with normal central venous pressure. Anesthesia Assessment and Plan Anesthesia History Personal History: No History of Anesthesia Complications Family History: No Family History of Anesthesia Complications Exercise Tolerance Exercise Tolerance: Metabolic Equivalents>4 Pertinent Negatives Pertinent Negatives: No Symptoms of GERD and No Major Pulmonary Symptoms or Complaints Cardiac & Pulmonary Exam Cardiac Exam: Normal S1/S2 Heart Sounds Pulmonary Exam: Clear Bilateral Breath Sounds Implantable Cardiac Device Does patient have a Pacemaker or an ICD?: No Airway Exam Known Difficult Airway: No Mallampati Class: 2 Mouth Opening: Normal (> 3cm) Thyromental Distance: Greater than 3 cm Neck Range of Motion: Full ROM Neck Circumference: Normal Teeth Condition: Normal Dentition ASA Classification ASA Score: ASA 3 Emergency Case?: No NPO Status NPO Status: NPO Clears >2 hours, Solids >8 hours Anesthesia Plan Resuscitation Status: Full Code Anesthesia Technique: General Anesthesia Airway Planned: Natural Airway Monitors Used: Standard Monitors Preoperative Comments:: 74 yo for cysto. Sig PMHX: HTN (lisinopril, metoprolol), ASCVD (stents x 4 to LAD 2018), PreDM, never smoker, daily EtOH. ECG: sinus. LAFB. ECHO: LVEF 55-60%. mild MR. Stress: moderate, large, reversible defect. transferred for cath. Previous Anes: - cysto, prop, natural airway, no issues. - colo, prop, natural airway, no issues.
[2025-05-28] MEDS: Lactated Ringers 1,000 ML 80 ML IV (08:00)
--- NOTE | 2025-05-28 09:57 | W.PM.HP.N ---
Date of service: 05/28/25 Time of Service: 09:57 Assessment and Plan Assessment and plan (1) Ureteral stone: Status: Acute Assessment and plan: We will perform cystoscopy and remove her right ureteral stent. We would then plan to do ureteroscopy and holmium laser lithotripsy of her ureteral stone. History of Present Illness History of Present Illness Chief Complaint: Right ureteral stone Narrative: This is a 74-year-old woman who was initially seen when she presented with an obstructing right ureteral stone and concerns for a urinary tract infection. She was treated with placement of a ureteral stent along with outpatient antibiotics. She presents now for ureteroscopy to address her ureteral stone. At the time of her initial presentation, her urine culture grew Enterococcus. Since her stent was placed, she has had no flank pain, no fevers and no chills. She has had suprapubic pressure and stent discomfort. Review of Systems Narrative: No fevers or chills Allergic rhinitis. No vision change or dysphasia No diabetes or thyroid dysfunction No shortness of breath, cough or hemoptysis No chest pain or palpitations No hepatitis, ulcers, jaundice No seizures, strokes or peripheral neuropathy No bleeding disorders or anemia Osteoporosis. No gout PFSH All Active Problems (Updated 05/28/25 @ 09:58 by Yariel Esparza MD) Ureteral stone (Acute) Urinary tract infection (Acute) Urinary tract obstruction due to kidney stone (Acute) Weight loss, unintentional (Acute) Recurrent UTI (Acute) ASCVD (arteriosclerotic cardiovascular disease) (Chronic) S/p stents x 4 to LAD 05/29/18 at [facility] [place] for unstable angina Hyperlipidemia (Chronic) Essential hypertension (Chronic) Osteoporosis (Chronic) Dexa 09/06; declines osteoporosis meds History of melanoma (Chronic) Prediabetes (Chronic) Allergic rhinitis (Chronic) Recurrent cystitis (Chronic) Managed with topical estrogen cream Medical History Tubular adenoma of colon 2014 and 2022 colonoscopy 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 s/p excision at [facility] [place] Unstable angina pectoris due to coronary arteriosclerosis (~05/2018) S/p cardiac cath and stenting at [facility] [place] 05/28/18 Surgical History S/P colonoscopy (06/18/23) S/P ORIF (open reduction internal fixation) fracture (~2021) Left tibial plateau fracture S/P right breast biopsy (~1988) S/P cardiac catheterization (~05/29/18) Family History Mother , at 84 of metastatic lung cancer Lung cancer Hypertension Father , at 70 of [place] Heart disease Hyperlipidemia Renal failure Myocardial infarction Prostate cancer Type 2 diabetes mellitus Hypertension Brother No problems noted. Brother No problems noted. Daughter No problems noted. Maternal Grandfather , at 101 Brain aneurysm Maternal Grandmother No problems noted. Paternal Grandfather , age 74 Aneurysm Paternal Grandmother No problems noted. 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 Pets and animals: Yes Pets and animals: cat(s) and dog(s) Sexually active: Yes Do you think of yourself as: straight/heterosexual Current gender identity: female What is your relationship status?: How often do you talk on the phone with friends or family?: once per week How often do you get together with friends or relatives?: decline to answer How often do you attend congregational or baptism services?: decline to answer Do you belong to any clubs or organized social groups?: no Panel score (0-1 are the most socially isolated patients): 1 What type of physical activity do you participate in: none Frequency: does not exercise Annita/Orthodox: No preference Special annita needs: No Seatbelt use: always Helmet use: No Drive intox or ride w/intox pack train driver: No Do you feel safe at home: Yes Do you feel safe in your relationship?: Yes Victim of physical abuse: No Victim of emotional abuse: No Victim of sexual abuse: No Would you like helpful sources: No History History 3 Para Hx # Term Pregnancies Multiple births Hx # Pregnancies Ectopic pregnancies AB induced 1 Hx Number of Living Children 1 AB spontaneous 1 Meds Allergies and Home Medications Allergies Allergy/AdvReac Type Severity Reaction Status Date / Time Sulfa (Sulfonamide Allergy Severe Skin Rash Verified 05/28/25 07:37 Antibiotics) nitrofurantoin Allergy Intermediate angioedema, Verified 05/28/25 07:37 throat tightness, itching ciprofloxacin (From Cipro) Allergy Mild Skin Rash Verified 05/28/25 07:37 Penicillins Allergy Mild Skin Rash Verified 05/28/25 07:37 sulfamethoxazole (From Allergy Skin Rash Verified 05/28/25 07:37 Septra) trimethoprim (From Septra) Allergy Skin Rash Verified 05/28/25 07:37 hydrochlorothiazide AdvReac Intermediate TINGLING, Verified 05/28/25 07:37 SWOLLEN LIPS oxycodone AdvReac GI symptoms Verified 05/28/25 07:37 Home Medications ?Medication ?Instructions ?Recorded ?Confirmed ?Type aspirin 81 mg tablet,delayed 81 mg PO DAILY 03/16/13 05/28/25 History release (Ecotrin Low Strength) chlorpheniramine maleate 4 mg 4 mg PO DAILY PRN PRN 07/14/18 05/10/25 History tablet cholecalciferol (vitamin D3) 50 2,000 unit PO DAILY #90 caps 10/10/18 05/10/25 Rx mcg (2,000 unit) capsule nitroglycerin 0.4 mg sublingual 0.4 mg sublingual Q5-15M PRN chest 08/11/23 05/10/25 Rx tablet pain #25 tabs rectal, vaginal applicator tip #48 ea 01/06/24 05/11/25 Rx atorvastatin 40 mg tablet (Lipitor) 40 mg PO DAILY #90 tabs 01/10/25 05/28/25 Rx lisinopril 40 mg tablet 40 mg PO DAILY #90 tabs 01/10/25 05/28/25 Rx metoprolol succinate 100 mg 100 mg PO DAILY #90 tabs 01/10/25 05/28/25 Rx tablet,extended release 24 hr acyclovir 400 mg tablet 400 mg PO BID #180 tabs 02/15/25 05/28/25 Rx epinephrine 0.3 mg/0.3 mL 0.3 mg (0.3 mL) IM Q5-15M PRN 03/15/25 05/10/25 Rx injection, auto-injector (Auvi-Q) hypersensitivity reaction #2 ea estradiol 10 mcg vaginal tablet 10 mcg vaginal DAILY 05/10/25 05/28/25 History cefpodoxime 200 mg tablet 200 mg PO Q12H #30 tabs 05/11/25 05/28/25 Rx Exam Const General: cooperative Neck Neck: supple Resp Effort & Inspection: normal respiratory effort Auscultation: clear to auscultation bilaterally Cardio Rate: regular rate Rhythm: regular rhythm GI Palpation: soft and no masses Neuro General: patient alert, patient awake and patient oriented x3 Results Last Vital Signs Temp 36.2 C L 05/28/25 07:39 Pulse 71 05/28/25 07:39 Resp 16 05/28/25 07:39 BP 144/87 H 05/28/25 07:39 Pulse Ox 98 05/28/25 07:39 Time Spent Time spent with Patient: <40 minutes Time was spent: other
[2025-05-28] MEDS: cefTRIAXone 1 GM/50 ML BAG IVPB (12:07)
[2025-05-28] MEDS: Omnipaque 300 MG/ML 50 ML BTL (12:48)
[2025-05-28] MEDS: Lidocaine 2% Jelly 11 ML SYR (12:48)
--- NOTE | 2025-05-28 13:36 | DI.RAD_ITS ---
Exam(s) XR RETROGRADE IN OR EXAM: XR RETROGRADE IN OR CLINICAL HISTORY: Right ureteral stone. TECHNIQUE: Fluoroscopy was provided for the referring physician for guidance with performing retrograde procedure. COMPARISON: CT CT ABDOMEN PELVIS W from 05/10/2025 FINDINGS: Please see procedure note for details. Fluoro time: 38 seconds RADIATION DOSE DELIVERED: jose Campos=5.63 mGy
--- NOTE | 2025-05-28 13:36 | W.PM.DSUDISC ---
Date of service: 05/28/25 Discharge Plan Disposition Patient Disposition: Home Condition: Stable Discharge Details Attending Provider: Yariel Esparza Primary Care Provider: Judith Jerome Recommendations for Follow Up Recommended tests to be ordered by follow up provider: renal ultrasound in 8 weeks Home Meds and New Rx's Prescriptions: No Action chlorpheniramine maleate 4 mg tablet 4 mg PO DAILY PRN PRN (DME) rectal, vaginal applicator tip Misc See Rx Instructions .Route Qty: 48 0RF Rx Instructions: Use with estradiol cream epinephrine [Auvi-Q] 0.3 mg/0.3 mL auto-injector 0.3 mg IM Q5-15M PRN (Reason: hypersensitivity reaction) Qty: 2 0RF Rx Instructions: do not exceed 3 doses per episode aspirin [Ecotrin Low Strength] 81 MG tablet,delayed release (DR/EC) 81 mg PO DAILY Patient Comments: 06/24/17 Has not been taking. ts cholecalciferol (vitamin D3) 2,000 unit capsule 2,000 unit PO DAILY Qty: 90 4RF Rx Instructions: Start after 8wks of 50,000 IU weekly nitroglycerin 0.4 mg tablet, sublingual 0.4 mg sublingual Q5-15M PRN (Reason: chest pain) Qty: 25 3RF Rx Instructions: 1 tablet every 5 minutes x 3 doses if needed for chest pain. Seek emergency services if not improving after first dose lisinopril 40 mg tablet 40 mg PO DAILY Qty: 90 3RF atorvastatin [Lipitor] 40 mg tablet 40 mg PO DAILY Qty: 90 3RF metoprolol succinate 100 mg tablet extended release 24 hr 100 mg PO DAILY Qty: 90 3RF acyclovir 400 mg tablet 400 mg PO BID Qty: 180 3RF estradiol 10 mcg tablet 10 mcg VAGINAL DAILY Patient Comments: INSERT ONE INSERT VAGINALLY ONCE DAILY FOR TWO WEEKS, FOLLOWED BY ONE INSERT TWICE WEEKLY (EVERY 3 TO 4 DAYS)S cefpodoxime 200 mg tablet 200 mg PO Q12H Qty: 30 0RF Rx Instructions: must administer with a meal/food Discharge Instructions Additional Instructions: There is no need to strain your urine. I have already sent many stone fragments to the lab to be analyzed You still have a stent in place but there is a string attached. You will need an appointment to come into the office in about a week to have the stent removed You will also have a follow-up appointment to see me in about 6 to 8 weeks. You will have a renal ultrasound before the follow-up appointment to make sure your kidney has recovered from your surgery. Activity:: Activity as Tolerated Shower/Bathe:: 24 hours Diet:: As Tolerated Discharge Orders Discharge Orders: Discharge Order (Routine); Ordered 05/28/25 Ordered By: Yariel Esparza DS: Diagnosis Discharge Diagnosis (1) Ureteral stone: Status: Acute
--- NOTE | 2025-05-28 13:40 | W.PM.OP ---
Operative Note Operative Note PRE-OP DIAGNOSIS: Right ureteral stone POST-OP DIAGNOSIS: same PROCEDURE: cystoscopy, remove right ureteral stent, right retrograde pyelogram, right ureteroscopy with holmium laser lithotripst, extraction of stone fragments, insert right ureteral stent SURGEON: Yariel Esparza ANESTHESIA TYPE: Local By Surgeon and General LMA/ETT Refer to Anesthesia Record ESTIMATED BLOOD LOSS: 5 PATHOLOGY: other (Stone fragments for chemical analysis) COMPLICATIONS: None Patient was transported to: PACU Patient's condition: stable Implants: 4.8 [place] by 22 to 30 cm right ureteral stent with safety string attached Indications: This is a 74-year-old woman who presented to the emergency department with fevers, chills and right flank pain. She was found to have an obstructing right ureteral stone. She was treated with an emergent placement of a ureteral stent along with antibiotics. She presents now for ureteroscopy with treatment of her right ureteral stone Findings: Embedded right ureteral stone Procedure Description: The patient was given a dose of IV ceftriaxone. After successful induction of general anesthesia, she was placed in the dorsal lithotomy position. Her genitalia was prepped and draped. 2% Xylocaine jelly was instilled into the urethra. A 22 [place] rigid cystoscope was passed through the urethra into the bladder. The bladder was inspected with the 30 degree lens. A stent could be seen protruding from the right ureteral orifice. The stent was grasped with alligator forceps and brought to the level of the urethral meatus. A guidewire was then advanced through the lumen of the stent and the stent was removed. I then passed a dual-lumen catheter over the wire and injected Omnipaque through the second port of the dual-lumen catheter. We were able to outline the large right ureteral stone. I then passed a second wire through the dual-lumen catheter and removed the catheter. We chose one of the wires as a working wire and the other is a safety wire. I passed the ureteral access sheath over the working wire leaving the safety wire in place. I then passed a disposable flexible ureteroscope up to the level of the stone. The stone was then treated with a 272 ?m holmium laser fiber. We used a combination of dusting settings along with fragmentation settings. Once the stone had been fragmented, we were able to grasp of multiple stone fragments and a ZeroTip stone basket and remove the fragments 1 at a time. The fragments were all sent to pathology for chemical analysis. At the completion of the procedure, only small fragments remained and it was felt that she would be able to pass the stones with no further intervention. Because of the number of passages of the ureteroscope through the ureter, we elected to replace the ureteral stent. We chose a 4.8 [place] variable length stent and advanced it over the safety wire. The proximal end of the stent was curled in the upper pole calyx and the distal end was curled within the bladder. The positioning of the stent was confirmed both fluoroscopically and cystoscopically. The safety string was left in place, brought through the patient's urethra and the end of the safety string was tucked into the patient's vaginal cavity. The patient tolerated this procedure well with no complications. She was taken to the recovery room in stable condition. Date of Procedure: 05/28/25
--- NOTE | 2025-05-28 13:56 | W.ANESPOSTOP ---
Postoperative Evaluation Date, Time and Location Date Performed: 05/28/25 Time Performed: 13:56 Patient Location: PACU Vital Signs Most Recent Imported Vital Signs: Most Recent Vital Signs Temp Pulse Resp BP Pulse Ox 36.9 C 64 20 120/65 95 05/28/25 13:53 05/28/25 13:51 05/28/25 13:51 05/28/25 13:51 05/28/25 13:51 Pain Score Most Recent Pain Score: Most Recent Pain Score Pain Level 0 05/28/25 13:53 Assessment Mental Status: Awake (Alert & Oriented to Patient Baseline) Airway and Respiratory Function: Patent airway with normal (patient baseline) respiratory exam Cardiovascular Function: Hemodynamically Stable Hydration Status: Adequately Hydrated Nausea & Vomiting: No Nausea or Vomiting Pain: Pain is tolerable per patient Peripheral Nerve Block: Patient did not receive a nerve block
[2025-05-28] MEDS: Phenazopyridine 200 MG TAB PO (14:13)
== END 2025-05-28 14:56 | disposition home or self-care (01) ==
PROVIDERS: PCP Nurse Practitioner Family; Visit Provider Urology
PROC: (CPT 52356; principal; 2025-05-28 10:15)
DX: N20.1 Calculus of ureter (principal); I25.10 Atherosclerotic heart disease of native coronary artery without angina pectoris; R73.03 Prediabetes; I10 Essential (primary) hypertension; E78.5 Hyperlipidemia, unspecified
CPT/HCPCS: 52356; 74420; 82365; J0131; J0696; J1100; J2405; J2704; J3010; Q9967

== ENCOUNTER 2025-06-01 16:38 | Outpatient (REF) | payer MEDICARE, SELFPAY ==
[2025-06-01 21:12] LABS: Glucose Negative (Negative)
[2025-06-01 21:38] LABS: C & S Indicated? Yes; RBC 20-50 HPF (0-2); WBC >50 HPF (0-5)
== END 2025-06-01 16:39 | disposition home or self-care (01) ==
LOC: LBN 16:38
PROVIDERS: PCP Nurse Practitioner Family; Visit Provider Nurse Practitioner Family
DX: R30.0 Dysuria (principal)
CPT/HCPCS: 87077; 81003; 81015; 87086; 87186

== ENCOUNTER 2025-06-05 21:02 | Outpatient (REF) | payer MEDICARE, SELFPAY ==
[2025-06-05 21:22] LABS: Glucose 100 mg/dL (Negative)
[2025-06-05 21:30] LABS: RBC >50 HPF (0-2); WBC >50 HPF (0-5)
== END 2025-06-05 21:03 | disposition home or self-care (01) ==
LOC: LBN 21:02
PROVIDERS: PCP Nurse Practitioner Family; Visit Provider Physician Assistant
DX: N39.0 Urinary tract infection, site not specified (principal)
CPT/HCPCS: 87077; 81003; 81015; 87086; 87186

== ENCOUNTER 2025-06-13 07:12 | Outpatient (RCR) | payer MEDICARE, SELFPAY ==
[2025-06-07] MEDS: ERTAPENEM 1 GM in Normal Saline 50 ML IVPB (14:11)
[2025-06-07] MEDS: Normal Saline Flush 10 ML SYR IVP (14:11)
[2025-06-08] MEDS: ERTAPENEM 1 GM in Normal Saline 50 ML IVPB (14:08)
[2025-06-08] MEDS: Normal Saline Flush 10 ML SYR IVP (14:09)
[2025-06-09 13:59] VITALS: BP 150/82; PULSE 64; RESP 18; TEMP 36.2; O2SAT 96
[2025-06-09] MEDS: ERTAPENEM 1 GM in Normal Saline 50 ML IVPB (14:06)
[2025-06-09] MEDS: Normal Saline Flush 10 ML SYR IVP (14:09)
[2025-06-10] MEDS: ERTAPENEM 1 GM in Normal Saline 50 ML IVPB (14:10)
[2025-06-10 14:22] VITALS: BP 153/72; PULSE 58; RESP 18; TEMP 36.9; O2SAT 96
[2025-06-11] MEDS: ERTAPENEM 1 GM in Normal Saline 50 ML IVPB (14:04)
[2025-06-11] MEDS: Normal Saline Flush 10 ML SYR IVP (14:05)
[2025-06-12] MEDS: ERTAPENEM 1 GM in Normal Saline 50 ML IVPB (14:04)
[2025-06-12] MEDS: Normal Saline Flush 10 ML SYR IVP (14:05)
[2025-06-13] MEDS: Normal Saline Flush 10 ML SYR IVP (13:53)
[2025-06-13] MEDS: ERTAPENEM 1 GM in Normal Saline 50 ML IVPB (13:53)
== END 2025-06-19 23:59 | disposition home or self-care (01) ==
LOC: INF 07:12
PROVIDERS: PCP Nurse Practitioner Family; Visit Provider Nurse Practitioner Gerontology
DX: B96.1 Klebsiella pneumoniae [K. pneumoniae] as the cause of diseases classified elsewhere (principal); N39.0 Urinary tract infection, site not specified
CPT/HCPCS: 96365; J1335

== ENCOUNTER 2025-06-18 17:16 | Outpatient (REF) | payer MEDICARE, SELFPAY ==
[2025-06-18 20:07] LABS: Glucose Negative (Negative)
[2025-06-18 20:15] LABS: C & S Indicated? Yes; WBC >50 HPF (0-5)
== END 2025-06-18 17:17 | disposition home or self-care (01) ==
LOC: LBN 17:16
PROVIDERS: PCP Nurse Practitioner Family; Visit Provider Urology
DX: N39.0 Urinary tract infection, site not specified (principal)
CPT/HCPCS: 87077; 81003; 81015; 87086; 87186

== ENCOUNTER 2025-07-05 00:24 | Outpatient (RCR) | payer MEDICARE, SELFPAY ==
[2025-06-22] MEDS: ERTAPENEM 1 GM in Normal Saline 50 ML IVPB (14:32)
[2025-06-22] MEDS: Normal Saline Flush 10 ML SYR IVP (14:55)
[2025-06-23] MEDS: ERTAPENEM 1 GM in Normal Saline 50 ML IVPB (09:00)
[2025-06-23] MEDS: Normal Saline Flush 10 ML SYR IVP (09:01)
[2025-06-24] MEDS: Normal Saline Flush 10 ML SYR IVP (13:58)
[2025-06-24] MEDS: ERTAPENEM 1 GM in Normal Saline 50 ML IVPB (13:59)
[2025-06-25] MEDS: ERTAPENEM 1 GM in Normal Saline 50 ML IVPB (13:56)
[2025-06-25] MEDS: Normal Saline Flush 10 ML SYR IVP (13:57)
[2025-06-26] MEDS: Normal Saline Flush 10 ML SYR IVP (13:59)
[2025-06-26] MEDS: ERTAPENEM 1 GM in Normal Saline 50 ML IVPB (13:59)
[2025-06-27] MEDS: Normal Saline Flush 10 ML SYR IVP (13:53)
[2025-06-27] MEDS: ERTAPENEM 1 GM in Normal Saline 50 ML IVPB (13:53)
[2025-06-28] MEDS: ERTAPENEM 1 GM in Normal Saline 50 ML IVPB (14:07)
[2025-06-28] MEDS: Normal Saline Flush 10 ML SYR IVP (14:08)
[2025-06-29] MEDS: Normal Saline Flush 10 ML SYR IVP (13:59)
[2025-06-29] MEDS: ERTAPENEM 1 GM in Normal Saline 50 ML IVPB (13:59)
[2025-06-30] MEDS: ERTAPENEM 1 GM in Normal Saline 50 ML IVPB (14:42)
[2025-06-30] MEDS: Normal Saline Flush 10 ML SYR IVP (14:47)
[2025-07-01] MEDS: ERTAPENEM 1 GM in Normal Saline 50 ML IVPB (14:10)
[2025-07-01] MEDS: Normal Saline Flush 10 ML SYR IVP (14:10)
[2025-07-02] MEDS: ERTAPENEM 1 GM in Normal Saline 50 ML IVPB (13:57)
[2025-07-02] MEDS: Normal Saline Flush 10 ML SYR IVP (13:58)
[2025-07-03] MEDS: Normal Saline Flush 10 ML SYR IVP (13:59)
[2025-07-03] MEDS: ERTAPENEM 1 GM in Normal Saline 50 ML IVPB (13:59)
[2025-07-04] MEDS: ERTAPENEM 1 GM in Normal Saline 50 ML IVPB (14:02)
[2025-07-04] MEDS: Normal Saline Flush 10 ML SYR IVP (14:02)
[2025-07-05] MEDS: ERTAPENEM 1 GM in Normal Saline 50 ML IVPB (14:08)
[2025-07-05] MEDS: Normal Saline Flush 10 ML SYR IVP (14:35)
== END 2025-07-20 23:59 | disposition home or self-care (01) ==
LOC: INF 00:24
PROVIDERS: PCP Nurse Practitioner Family; Visit Provider Nurse Practitioner Gerontology
DX: N39.0 Urinary tract infection, site not specified (principal); B96.1 Klebsiella pneumoniae [K. pneumoniae] as the cause of diseases classified elsewhere
CPT/HCPCS: 96365; J1335

== ENCOUNTER 2025-07-19 18:23 | Outpatient (REF) | payer MEDICARE, SELFPAY | END 2025-07-19 18:24 | disposition home or self-care (01) | LOC: LBN 18:23 | PROVIDERS: PCP Nurse Practitioner Family; Visit Provider Nurse Practitioner Family | DX: L98.9 Disorder of the skin and subcutaneous tissue, unspecified (principal) | CPT/HCPCS: 87077; 87070; 87186; 87205 ==

== ENCOUNTER → 2025-08-03 11:09 | Outpatient (BNVA) | payer MEDICARE, SELFPAY | PROVIDERS: PCP Nurse Practitioner Family; Referring Provider Nurse Practitioner Family; Visit Provider Urology | DX: N20.1 Calculus of ureter (principal); N39.0 Urinary tract infection, site not specified | CPT/HCPCS: 99213 ==

== ENCOUNTER 2025-08-09 01:47 | Outpatient (CLI) | payer MEDICARE, SELFPAY ==
[2025-08-09 07:48] LABS: Abs Immature Grans 0.04 10^3/uL (0.0-0.06); HCT 39.6 % (36.0-46.0); HGB 13.0 g/dL (11.2-15.7); Immature Grans % 0.6 %; MCH 30.7 pg (27.0-33.0); MCHC 32.8 % (32.0-36.0); MCV 94 fL (80-95); MPV 10.9 fL (8.0-11.0); Platelet Count 244 10^3/uL (130-400); RBC 4.23 10^6/uL (3.93-5.22); RDW 12.4 % (11.7-14.6); RDW-SD 42.7 fL; WBC 6.37 10^3/uL (4.4-10.8)
[2025-08-09 08:52] LABS: ALT 43 U/L (10-49); AST 25 U/L (<34); Albumin 3.9 g/dL (3.4-5.0); Alkaline Phosphatase 81 U/L (46-116); Anion Gap 7.7 mmol/L (3-11); BUN 23 mg/dL (9-23); Bilirubin, Total 0.60 mg/dL (0.2-1.2); CO2 26.3 mmol/L (20.0-31.0); Calcium 9.0 mg/dL (8.3-10.6); Chloride 106 mmol/L (98-107); Glucose 105 mg/dL (74-106); Potassium 4.8 mmol/L (3.5-5.1); Sodium 140 mmol/L (136-145); Total Protein 6.5 g/dL (5.7-8.2)
[2025-08-09 08:54] LABS: TSH (W/Ref FT4) 2.46 uIU/mL (0.55-4.78)
== END 2025-08-09 01:48 | disposition home or self-care (01) ==
LOC: LBO 01:47
PROVIDERS: PCP Nurse Practitioner Family; Visit Provider Nurse Practitioner Family
DX: N39.0 Urinary tract infection, site not specified (principal); R63.4 Abnormal weight loss
CPT/HCPCS: 36415; 80053; 84443; 85025

== ENCOUNTER → 2025-09-14 11:03 | Outpatient (BNVA) | payer MEDICARE, SELFPAY | PROVIDERS: PCP Nurse Practitioner Family; Visit Provider Internal Medicine Cardiovascular Disease | DX: I25.10 Atherosclerotic heart disease of native coronary artery without angina pectoris (principal) | CPT/HCPCS: 99213 ==